=== PATIENT | female | born 1960 | race Caucasian/White ===

== ENCOUNTER 2020-10-01 13:53 | Outpatient (REF) | payer MEDICARE, MEDICAID, SELFPAY ==
[2020-10-01 17:06] LABS: Anion Gap 12 (12-20); Blood Urea Nitrogen 10 mg/dL (9-16); Calcium 8.7 mg/dL (8.4-10.2); Carbon Dioxide 28 mmol/L (22-29); Chloride 101 mmol/L (96-108); Estimated Glomerular Filt Rate > 60; Glucose Random 78 mg/dL (60-115); Potassium 4.4 mmol/l (3.3-5.1); Sodium 137 mmol/L (135-145)
[2020-10-01 17:17] LABS: Microalbumin Urine < 5.0 mg/L
[2020-10-01 17:28] LABS: TSH reflex Free T4 4.31 mIU/mL (0.32-4.0)
[2020-10-01 18:02] LABS: Free T4 (Free Thyroxine) 1.23 ng/dL (0.71-1.85)
[2020-10-02 07:45] LABS: Estimated Average Glucose 151 mg/dL; Hemoglobin A1c % 6.9 %
[2020-10-02 08:06] LABS: LDL Cholesterol Direct 54 mg/dL (<100)
== END 2020-10-01 13:54 | disposition home or self-care (01) ==
LOC: HO.HMGCLDS 13:53
PROVIDERS: PCP Internal Medicine; Visit Provider Internal Medicine
DX: E03.8 Other specified hypothyroidism (principal); E13.9 Other specified diabetes mellitus without complications
CPT/HCPCS: 80048; 82043; 83036; 83721; 84439; 84443

== ENCOUNTER 2021-07-30 11:25 | Outpatient (REF) | payer MEDICARE, MEDICAID, SELFPAY ==
--- NOTE | ~2021-07-30 | XR_ITS ---
EXAMINATION: XR CHEST CLINICAL INFORMATION: Tobacco use. COMPARISON: None TECHNIQUE: 2 views of the chest were obtained. FINDINGS: The lungs are well-expanded and clear. The heart size is enlarged with prominent vascularity is normal. No gross bony abnormality seen. XR/XR chest 2V IMPRESSION: Unremarkable chest exam.
== END 2021-07-30 11:26 | disposition home or self-care (01) ==
LOC: HO.HMGCLDS 11:25
PROVIDERS: PCP Internal Medicine; Visit Provider Internal Medicine
DX: Z13.89 Encounter for screening for other disorder (principal)
CPT/HCPCS: 71046

== ENCOUNTER 2021-08-07 09:04 | Outpatient (REF) | payer MEDICARE, MEDICAID, SELFPAY ==
[2021-08-07 11:35] LABS: MANUAL DIFF FLAG NO
[2021-08-07 11:48] LABS: Basophils Percent Auto 0.7 % (0-2); Eosinophils Absolute Auto 0.1 X10*3/uL (0.0-0.4); Eosinophils Percent Auto 1.8 % (0-4); Hematocrit 37.8 % (37-47); Hemoglobin 11.1 g/dl (12.0-16.0); Imm Gran Abs Auto 0.02 X10*3/uL (0.00-0.03); Imm Gran Pct Auto 0.4 % (0.0-0.4); Mean Corpuscular HGB Conc 29.4 g/dl (31.0-35.0); Mean Platelet Volume 10.1 fL (9.4-12.3); Monocytes Absolute Auto 0.4 X10*3/uL (0.1-1.2); Monocytes Percent Auto 6.2 % (2-11); Neutrophils Absolute Auto 4.2 X10*3/uL (2.0-8.3); Neutrophils Percent Auto 73.9 % (45-73); Platelet Count 287 X10*3/uL (160-400); Red Blood Count 5.04 X10*6/uL (4.20-5.50); Red Cell Distribution Width 18.8 % (11.0-16.0); White Blood Count 5.7 X10*3/uL (4.8-10.8)
[2021-08-07 12:12] LABS: Alanine Aminotransferase 9 U/L (0-31); Albumin Level 4.3 g/dL (3.5-5.0); Alkaline Phosphatase 105 U/L (39-117); Anion Gap 14 (12-20); Aspartate Amino Transferase 10 U/L (5-31); Bilirubin Total 0.6 mg/dL (0.0-1.0); Blood Urea Nitrogen 12 mg/dL (9-16); Calcium 9.6 mg/dL (8.4-10.2); Carbon Dioxide 28 mmol/L (22-29); Chloride 99 mmol/L (96-108); Estimated Glomerular Filt Rate > 60; Glucose Random 141 mg/dL (60-115); Potassium 4.5 mmol/L (3.3-5.1); Sodium 136 mmol/L (135-145); Total Protein 7.2 g/dL (6.5-8.0)
[2021-08-07 12:14] LABS: Estimated Average Glucose 123 mg/dL; Hemoglobin A1c % 5.9 %
[2021-08-07 12:18] LABS: TSH reflex Free T4 5.45 uIU/mL (0.32-4.0)
[2021-08-07 12:20] LABS: Vitamin B12 339 pg/mL (200-900)
[2021-08-07 12:56] LABS: Free T4 (Free Thyroxine) 0.99 ng/dL (0.71-1.85)
[2021-08-09 04:06] LABS: LDL Cholesterol Direct 84 mg/dL (<100)
== END 2021-08-07 09:05 | disposition home or self-care (01) ==
LOC: HO.HMGCLDS 09:04
PROVIDERS: PCP Internal Medicine; Visit Provider Internal Medicine
DX: E03.8 Other specified hypothyroidism (principal); E13.9 Other specified diabetes mellitus without complications; E53.8 Deficiency of other specified B group vitamins; E78.9 Disorder of lipoprotein metabolism, unspecified; J44.9 Chronic obstructive pulmonary disease, unspecified; Z72.0 Tobacco use
CPT/HCPCS: 36415; 80053; 82607; 83036; 83721; 84439; 84443; 85025

== ENCOUNTER → 2021-12-09 14:16 | Outpatient (BNVA) | payer MEDICARE, MEDICAID, SELFPAY | PROVIDERS: PCP Internal Medicine; Visit Provider Internal Medicine | DX: J44.9 Chronic obstructive pulmonary disease, unspecified (principal); E66.9 Obesity, unspecified; F20.9 Schizophrenia, unspecified; Z72.0 Tobacco use; Z68.41 Body mass index [BMI] 40.0-44.9, adult | CPT/HCPCS: 99202 ==

== ENCOUNTER 2021-12-17 14:07 | Outpatient (REF) | payer MEDICARE, MEDICAID, SELFPAY ==
--- NOTE | ~2021-12-17 | MM_ITS ---
EXAMINATION: MM SCREENING DIGITAL BREAST TOMOSYNTHESIS, BILATERAL CLINICAL INFORMATION: Screening. Asymptomatic. The lifetime risk of breast cancer based on the Tyrer-Cuzick Model is 6%. COMPARISON: Mammography: 03/29/2018, 12/30/2016, 07/05/2015 TECHNIQUE: Digital breast tomosynthesis is performed in both the craniocaudal and mediolateral oblique views along with computer-aided detection (CAD). Synthesized 2D images are generated from the tomosynthesis. Additional right MLO view is provided. FINDINGS: There are scattered areas of fibroglandular density (ACR BI-RADS breast composition Category b). There are no significant masses, abnormal calcifications, or other abnormalities. Parenchymal pattern is similar to prior studies. There is no developing density or architectural abnormality. The axilla and skin contours are unremarkable. No significant changes. MM/MM tomosynthesis screening BI IMPRESSION: No mammographic evidence of malignancy. ASSESSMENT: BI-RADS 1: Negative RECOMMENDATION: Routine annual mammography screening. This patient's information was entered into a reminder system with a target due date for their next mammogram.
== END 2021-12-17 14:08 | disposition home or self-care (01) ==
LOC: HO.MAMMO 14:07
PROVIDERS: PCP Internal Medicine; Visit Provider Internal Medicine
DX: Z12.31 Encounter for screening mammogram for malignant neoplasm of breast (principal)
CPT/HCPCS: 77063; 77067

== ENCOUNTER 2022-01-15 07:57 | Outpatient (REF) | payer MEDICARE, MEDICAID, SELFPAY ==
[2022-01-15 09:05] LABS: Hematocrit 38.6 % (37.0-47.0); Hemoglobin 11.1 g/dl (12.0-16.0)
[2022-01-15 09:17] LABS: Estimated Average Glucose 117 mg/dL; Hemoglobin A1c % 5.7 %
[2022-01-15 09:42] LABS: Alanine Aminotransferase 11 U/L (0-31); Albumin Level 4.2 g/dL (3.5-5.0); Alkaline Phosphatase 90 U/L (39-117); Anion Gap 12 (12-20); Aspartate Amino Transferase 12 U/L (5-31); Bilirubin Total 0.7 mg/dL (0.0-1.0); Blood Urea Nitrogen 8 mg/dL (9-16); Calcium 9.5 mg/dL (8.4-10.2); Carbon Dioxide 31 mmol/L (22-29); Chloride 103 mmol/L (96-108); Estimated Glomerular Filt Rate > 60; Glucose Random 135 mg/dL (60-115); Potassium 4.5 mmol/L (3.3-5.1); Sodium 141 mmol/L (135-145); Total Protein 6.9 g/dL (6.5-8.0)
[2022-01-15 09:55] LABS: TSH reflex Free T4 0.57 uIU/mL (0.32-4.0)
[2022-01-15 10:47] LABS: Vitamin B12 532 pg/mL (200-900)
[2022-01-17 01:22] LABS: LDL Cholesterol Direct 59 mg/dL (<100)
[2022-01-20 12:41] LABS: HPV mRNA E6/E7 rflx Not Detected (Not Detected)
== END 2022-01-15 07:58 | disposition home or self-care (01) ==
LOC: HO.LAB 07:57
PROVIDERS: Absent Provider Internal Medicine; PCP Internal Medicine; Visit Provider Obstetrics & Gynecology
DX: Z01.419 Encounter for gynecological examination (general) (routine) without abnormal findings (principal); Z11.51 Encounter for screening for human papillomavirus (HPV); E13.9 Other specified diabetes mellitus without complications; E03.8 Other specified hypothyroidism; J44.9 Chronic obstructive pulmonary disease, unspecified; E78.9 Disorder of lipoprotein metabolism, unspecified; E53.8 Deficiency of other specified B group vitamins; Z72.0 Tobacco use
CPT/HCPCS: 36415; 80053; 82607; 83036; 83721; 84443; 85014; 85018; 87624; 88142

== ENCOUNTER 2022-02-05 10:47 | Inpatient (IN) | payer MEDICARE, MEDICAID, SELFPAY ==
--- NOTE | ~2022-02-05 | XR_ITS ---
EXAMINATION: XR CHEST CLINICAL INFORMATION: Dyspnea COMPARISON: None TECHNIQUE: Frontal view of the chest was obtained. FINDINGS: The lungs are well-expanded and clear acute pneumonic process. There is platelike lingular atelectasis. Rest lungs are clear. Heart size and pulmonary vascularity is normal. No gross bony abnormality seen. XR/XR chest 1V IMPRESSION: Lingular atelectasis. Rest of the lungs are clear.
[2022-02-05 10:59] VITALS: BP 149/78; PULSE 78; RESP 22; TEMP 37.1; O2SAT 89; BMI 39.2
--- NOTE | 2022-02-05 11:01 | ECG_ITS ---
Test Reason : dyspnea Blood Pressure : / mmHG Vent. Rate : 067 BPM Atrial Rate : 067 BPM P-R Int : 136 ms QRS Dur : 076 ms QT Int : 410 ms P-R-T Axes : 046 019 058 degrees QTc Int : 433 ms Normal sinus rhythm Normal ECG When compared with ECG of 02-JAN-2020 15:06, No significant change was found Referred By: Genesis Berger Electronically Signed By:LORNA QUACH MD
--- NOTE | 2022-02-05 11:02 | ED_ITS ---
HPI - SOB/Dyspnea General Chief Complaint: Dyspnea Stated Complaint: LOW O2 SAT 82% BY VNA Time Seen by Provider: 02/05/22 10:52 Source: patient Mode of arrival: EMS Limitations: no limitations History of Present Illness HPI Narrative: patient presents for low O2 sats by VNA found to be in mid 80s given duoneb at h ome, she has no complaints, she is not normally on home O2 MD elicited complaint: shortness of breath (low O2 but she is not short of breath) Pertinent past history: COPD Onset (ago): unknown Context: smoke/fume exposure (smokes daily and I've been smoking strong cigars recently ) Timing: improved Severity: mild Exacerbating factors: exertion Known history of: COPD Associated symptoms: denies other symptoms Treatment prior to arrival: oxygen and bronchodilator Related Data Home Medications Medication Instructions Recorded Confirmed metformin 1,000 mg tablet 1,000 mg PO BID 10/03/20 02/04/22 (Glucophage) risperidone 2 mg tablet (Risperdal) 2 mg PO BID 10/03/20 02/04/22 risperidone microspheres 25 mg/2 25 mg IM DIRECTED ea 10/03/20 02/04/22 mL intramuscular susp,ext release (Risperdal Consta) ipratropium 0.5 mg-albuterol 3 mg 3 ml INHALATION Q4-6H PRN 12/09/21 02/04/22 (2.5 mg base)/3 mL nebulization soln Previous Rx's Medication Instructions Recorded alcohol swabs (Alcohol Wipes) 1 pad TOPICAL DAILY 90 Days #100 ea 02/28/21 lancets (OneTouch UltraSoft #100 ea 03/10/21 Lancets) blood sugar diagnostic (OneTouch #100 ea 05/30/21 Ultra Blue Test Strip) ipratropium 20 mcg-albuterol 100 1 puff INHALATION Q6H PRN #4 g 06/03/21 mcg/actuation mist for inhalation aspirin 325 mg tablet,delayed 325 mg PO DAILY #90 tab 11/27/21 release atorvastatin 40 mg tablet 40 mg PO DAILY #90 tab 11/27/21 albuterol sulfate 90 mcg/actuation 1 puff PO Q4H PRN 30 Days #18 g 12/02/21 aerosol inhaler (Ventolin HFA) cyanocobalamin (vitamin B-12) 1,000 mcg IM .monthly 30 Days #1 ml 02/03/22 1,000 mcg/mL injection solution levothyroxine 125 mcg tablet 125 mcg PO QAM 90 Days #90 tab 02/03/22 syringe with needle, safety 3 mL #50 ea 02/03/22 25 gauge x 1 (BD SafetyGlide Syringe) pioglitazone 15 mg tablet 15 mg PO DAILY 90 Days #90 tab 02/04/22 Allergies Allergy/AdvReac Type Severity Reaction Status Date / Time Penicillins [PENICILLINS] Allergy Intermediate SKIN Verified 02/04/22 14:58 PEELS penicillin V Allergy Unknown peeling Verified 02/04/22 14:58 skin Review of Systems Review of Systems: Constitutional : No Fever, No Chills ENT/Mouth : No sore throat, No Rhinorrhea, No Swallowing Difficulty Eyes: No Eye Pain, No Swelling, No Redness Cardiovascular : No Chest Pain, positive SOB, No Orthopnea, no Edema Respiratory : No Cough, No Sputum, No Wheezing, positive dyspnea Gastrointestinal : No Nausea, No Vomiting, No Diarrhea, No abdominal Pain, No Hematochezia, No Melena Genitourinary : No Dysuria, No Urinary Frequency, No Hematuria Musculoskeletal : No joint pain, No Myalgias Skin : No Skin Lesions, No rash Neuro : No Weakness, No Numbness, No Dizziness, No Headache Psych : No Anxiety/Panic, No Depression Heme/Lymph: No Bruising, No Lymphadenopathy Endocrine : No Polyuria, No Polydipsia All other systems reviewed and are negative PMFSH Past Medical History Attestation statement: The following information was validated with the patient. Medical History B12 deficiency COPD (chronic obstructive pulmonary disease) Diabetes 1.5, managed as type 2 Lipid disorder Obesity Other specified hypothyroidism Tobacco abuse Family History Family History Father Lung cancer Mother Diabetes mellitus Social History Social History Housing: Apartment Patient Tobacco Use Status: Current everyday Tobacco user Tobacco use type: Cigar Cigarette Packs Per Day: 0.5 Advance Directives: No Advance Directives Information Provided: Yes Current occupational status: retired Physical Exam Vital Signs: Vital Signs: Last Vital Signs Temp 98.7 F 02/05/22 10:59 Pulse 59 02/05/22 12:01 Resp 18 02/05/22 12:01 BP 149/78 H 02/05/22 10:59 Pulse Ox 87 L 02/05/22 13:16 BMI result Body Mass Index 39.2 Appearance: Alert. Oriented X3. No acute distress. Eyes: Pupils equal, round and reactive to light. ENT: Pharynx normal. Neck: Normal inspection. Neck supple. CVS: Normal heart rate and rhythm. Pulses normal. Respiratory: No respiratory distress. Breath sounds diminished. 93% on 2L NC Abdomen: Soft and non-tender. Skin: Skin warm and dry. Normal skin color. Normal skin turgor. Extremities: No lower extremity edema. No calf ttp Neuro: Oriented X 3. No motor deficit. No sensory deficit. Course Course Course Narrative: fails off O2 - 88% on RA, cannot get O2 evaluation will admit for COPD/hypoxia MDM - SOB/Dyspnea MDM Narrative Medical decision making narrative: 61 yo female with hx of COPD not on home O2, schizophrenia, hypothyroidism, HLD here with c/o low O2 sats at home - she is not normally on home O2 at this time, has no cough, no fevers, no CP and she herself states she is fine. She does admit to smoking cigars which is new for her. At this time will obtain labs, CXR, give IV steroids, neb treatment. She has no CP/SOB to suggest PE. Dispo per results and O2 needs. O2 sat in pulm office was 93% on RA Nov 2021 Lab Data Result diagrams: 02/05/22 11:17 02/05/22 11:17 Labs: Lab Results 02/05/22 02/05/22 02/05/22 Range/Units 11:17 11:17 11:17 WBC 4.2 L (4.8-10.8) X10*3/uL RBC 5.14 (4.20-5.50) X10*6/uL Hgb 11.2 L (12.0-16.0) g/dl Hct 39.7 (37.0-47.0) % MCV 77.2 L (80.0-98.0) fL MCH 21.8 L (27.0-33.0) pg MCHC 28.2 L (31.0-35.0) g/dl RDW 19.6 H (11.0-16.0) % Plt Count 291 (160-400) X10*3/uL MPV 9.6 (9.4-12.3) fL Immature Gran % (Auto) 0.7 H (0.0-0.4) % Neut % (Auto) 69.2 (45-73) % Lymph % (Auto) 18.4 L (20-40) % [place] % (Auto) 8.0 (2-11) % Eos % (Auto) 2.8 (0-4) % Baso % (Auto) 0.9 (0-2) % Lymph # (Auto) 0.8 L (1.2-4.9) X10*3/uL [place] # (Auto) 0.3 (0.1-1.2) X10*3/uL Eos # (Auto) 0.1 (0.0-0.4) X10*3/uL Baso # (Auto) 0.0 (0.0-0.2) X10*3/uL Abs Immat Gran (auto) 0.03 (0.00-0.03) X10*3/uL Absolute Neuts (auto) 2.9 (2.0-8.3) x10*3/uL Absolute Nucleated RBC 0.000 (0.0-0.012) X10*3/uL Nucleated RBC % (auto) 0.0 (0.0-0.2) /100WBC Sodium 141 (135-145) mmol/L Potassium 4.1 (3.3-5.1) mmol/L Chloride 101 (96-108) mmol/L Carbon Dioxide 30 H (22-29) mmol/L Anion Gap 14 (12-20) BUN 10 (9-16) mg/dL Creatinine 0.73 (0.5-1.4) mg/dL Estim Creat Clear Calc 99.5 Estimated GFR > 60 Random Glucose 122 H (60-115) mg/dL Lactic Acid 1.0 (0.5-2.0) mmol/L Calcium 9.6 (8.4-10.2) mg/dL Magnesium 1.8 (1.6-2.6) mg/dL Total Bilirubin 0.9 (0.0-1.0) mg/dL Direct Bilirubin 0.3 (0.0-0.5) mg/dL AST 12 (5-31) U/L ALT 11 (0-31) U/L Alkaline Phosphatase 86 (39-117) U/L Troponin I High Sens (<3.5-17.0) ng/L B-Natriuretic Peptide (<100) pg/mL Total Protein 7.1 (6.5-8.0) g/dL Albumin 4.3 (3.5-5.0) g/dL COVID-19 (MAGDIEL) (Negative) COVID-19 Clin Com 02/05/22 02/05/22 Range/Units 11:17 11:17 WBC (4.8-10.8) X10*3/uL RBC (4.20-5.50) X10*6/uL Hgb (12.0-16.0) g/dl Hct (37.0-47.0) % MCV (80.0-98.0) fL MCH (27.0-33.0) pg MCHC (31.0-35.0) g/dl RDW (11.0-16.0) % Plt Count (160-400) X10*3/uL MPV (9.4-12.3) fL Immature Gran % (Auto) (0.0-0.4) % Neut % (Auto) (45-73) % Lymph % (Auto) (20-40) % [place] % (Auto) (2-11) % Eos % (Auto) (0-4) % Baso % (Auto) (0-2) % Lymph # (Auto) (1.2-4.9) X10*3/uL [place] # (Auto) (0.1-1.2) X10*3/uL Eos # (Auto) (0.0-0.4) X10*3/uL Baso # (Auto) (0.0-0.2) X10*3/uL Abs Immat Gran (auto) (0.00-0.03) X10*3/uL Absolute Neuts (auto) (2.0-8.3) x10*3/uL Absolute Nucleated RBC (0.0-0.012) X10*3/uL Nucleated RBC % (auto) (0.0-0.2) /100WBC Sodium (135-145) mmol/L Potassium (3.3-5.1) mmol/L Chloride (96-108) mmol/L Carbon Dioxide (22-29) mmol/L Anion Gap (12-20) BUN (9-16) mg/dL Creatinine (0.5-1.4) mg/dL Estim Creat Clear Calc Estimated GFR Random Glucose (60-115) mg/dL Lactic Acid (0.5-2.0) mmol/L Calcium (8.4-10.2) mg/dL Magnesium (1.6-2.6) mg/dL Total Bilirubin (0.0-1.0) mg/dL Direct Bilirubin (0.0-0.5) mg/dL AST (5-31) U/L ALT (0-31) U/L Alkaline Phosphatase (39-117) U/L Troponin I High Sens < 3.5 (<3.5-17.0) ng/L B-Natriuretic Peptide 65 (<100) pg/mL Total Protein (6.5-8.0) g/dL Albumin (3.5-5.0) g/dL COVID-19 (MAGDIEL) Negative (Negative) COVID-19 Clin Com See Note ECG Data Attestation: I personally reviewed and interpreted this ECG as follows: ECG interpretation date: 02/05/22 ECG interpretation time: 11:22 Interpretation: Rate: 67 Rhythm: NSR [place]: normal Normal P waves. Normal LOLI. Normal QRS complex. ST T wave : nonspecific no JUANA, artifact noted qTC: normal prior studies: no acute ischemia The study has been interpreted contemporaneously by me. Discharge Plan Discharge Clinical Impression: COPD (chronic obstructive pulmonary disease), Hypoxia, Tobacco abuse Patient Disposition: Admitted As Inpatient
--- NOTE | 2022-02-05 11:02 | PC.NURSE ---
patient placed on 2L NC at this time and improves to 93%
[2022-02-05 11:23] LABS: MANUAL DIFF FLAG NO
[2022-02-05 11:28] LABS: Basophils Percent Auto 0.9 % (0-2); Eosinophils Absolute Auto 0.1 X10*3/uL (0.0-0.4); Eosinophils Percent Auto 2.8 % (0-4); Hematocrit 39.7 % (37.0-47.0); Hemoglobin 11.2 g/dl (12.0-16.0); Imm Gran Abs Auto 0.03 X10*3/uL (0.00-0.03); Imm Gran Pct Auto 0.7 % (0.0-0.4); Lymphocytes Absolute Auto 0.8 X10*3/uL (1.2-4.9); Lymphocytes Percent Auto 18.4 % (20-40); Mean Corpuscular HGB Conc 28.2 g/dl (31.0-35.0); Mean Corpuscular Hemoglobin 21.8 pg (27.0-33.0); Mean Corpuscular Volume 77.2 fL (80.0-98.0); Mean Platelet Volume 9.6 fL (9.4-12.3); Monocytes Absolute Auto 0.3 X10*3/uL (0.1-1.2); Neutrophils Absolute Auto 2.9 x10*3/uL (2.0-8.3); Neutrophils Percent Auto 69.2 % (45-73); Platelet Count 291 X10*3/uL (160-400); Red Blood Count 5.14 X10*6/uL (4.20-5.50); Red Cell Distribution Width 19.6 % (11.0-16.0); White Blood Count 4.2 X10*3/uL (4.8-10.8)
[2022-02-05 11:43] LABS: Alanine Aminotransferase 11 U/L (0-31); Albumin Level 4.3 g/dL (3.5-5.0); Alkaline Phosphatase 86 U/L (39-117); Anion Gap 14 (12-20); Aspartate Amino Transferase 12 U/L (5-31); Bilirubin Direct 0.3 mg/dL (0.0-0.5); Bilirubin Total 0.9 mg/dL (0.0-1.0); Blood Urea Nitrogen 10 mg/dL (9-16); Calcium 9.6 mg/dL (8.4-10.2); Carbon Dioxide 30 mmol/L (22-29); Chloride 101 mmol/L (96-108); Creatinine Clr Calc Pharmacy 99.5; Estimated Glomerular Filt Rate > 60; Glucose Random 122 mg/dL (60-115); Magnesium 1.8 mg/dL (1.6-2.6); Potassium 4.1 mmol/L (3.3-5.1); Sodium 141 mmol/L (135-145); Total Protein 7.1 g/dL (6.5-8.0)
[2022-02-05 11:47] LABS: B Type Natriuretic Peptide 65 pg/mL (<100); Troponin-I High Sensitivity < 3.5 ng/L (<3.5-17.0)
[2022-02-05] MEDS: methylPREDNISolone Sod Succ 125 MG/2 ML VIAL 60 MG IVPUSH (11:50)
[2022-02-05] MEDS: Albuterol Sulfate (0.083%) 2.5 MG/3 ML VIAL.NEB INHALE (11:58)
[2022-02-05 12:01] VITALS: PULSE 59; RESP 18; O2SAT 92
[2022-02-05 12:06] LABS: COVID-19 Test Negative (Negative); IDNOW Serial# 16C4AD1C
[2022-02-05 13:16] VITALS: O2SAT 87
--- NOTE | 2022-02-05 13:48 | PHA.MEDREC ---
Pharmacy Consult ? Medication Reconciliation Pharmacy has completed the medication reconciliation. Patient reports she does not use Comivent or have a nebulizer. She was able to confirm her last dose of Rispderal Consta was today and the B12 injection was about 3 weeks ago. Reena Forbes, PharmD
[2022-02-05] MEDS: levoFLOXacin/D5W 500 MG/100 ML PIGGYBACK 100 MG IV (14:37)
[2022-02-05] MEDS: Enoxaparin Sodium 40 MG/0.4 ML SYRINGE SUBCUT (15:29)
--- NOTE | 2022-02-05 15:42 | P.HPHOSP_ITS ---
History of Present Illness Date of Service: 02/05/22 Attending physician on admission: Estrella Church Chief Complaint: Shortness of breath 61-year-old female patient of Dr. Georgette Dowling with past medical history significant for COPD, B12 deficiency, type 2 diabetes mellitus, hyperlipidemia, obesity presented to [facility] due to progressively worsening shortness of breath associated with dry cough, patient noted to have low oxygenation in mid 80s by VNA therefore was referred to [facility], patient is being followed by Dr. Buckley from pulmonology and was is scheduled to undergo PFTs but patient was unable to go for her appointment, in the ER patient noted to have finger oximetry 87% on room air, patient feels that her hypoxia is related to smoking 1 pack per day at baseline patient smokes cigars half to 1 pack a day but when she has no cigars she smokes tobacco, she denies associated fever chills she had headache last week that has resolved she complains of occasional diarrhea she denies chest pain, no nausea no vomiting no abdominal symptoms she denies urinary symptoms of urgency or frequency. In ED patient treated with albuterol, IV steroids and Levaquin repeat oxygenation remained low therefore patient is being admitted to [facility] with a diagnosis of acute hypoxic respiratory failure related to mild COPD exacerbation Review of Systems Review of Systems: General no headache no dizziness no fever chills. CVS no chest pain, no palpitation. Respiratory occasional dry cough, shortness of breath with activity Gastrointestinal no nausea no vomiting, no abdominal pain skin no rash Yes all other systems are reviewed and are negative [facility] Medical History B12 deficiency COPD (chronic obstructive pulmonary disease) Diabetes 1.5, managed as type 2 Lipid disorder Obesity Other specified hypothyroidism Tobacco abuse Family History Father Lung cancer Mother Diabetes mellitus Social History Housing: Apartment Patient Tobacco Use Status: Current everyday Tobacco user Tobacco use type: Cigar Cigarette Packs Per Day: 0.5 Advance Directives: No Advance Directives Information Provided: Yes Current occupational status: retired Meds Allergies Allergy/AdvReac Type Severity Reaction Status Date / Time Penicillins [PENICILLINS] Allergy Intermediate SKIN Verified 02/04/22 14:58 PEELS penicillin V Allergy Unknown peeling Verified 02/04/22 14:58 skin Active Medications: Current Medications Acetaminophen (Acetaminophen 325 Mg Tablet) 650 mg PO Q6H PRN PRN Reason: Pain, Mild (Pain Scale 1-3) Albuterol/Ipratropium (Albuterol/Iprat 2.5/0.5mg 3 Ml Ampul.Neb) 3 ml INHALE Q4H PRN PRN Reason: Shortness of Breath Aspirin (Aspirin Enteric Coated 325 Mg Tablet.Dr) 325 mg PO DAILY [facility] Atorvastatin Calcium (Atorvastatin Calcium 40 Mg Tablet) 40 mg PO BEDTIME [facility] Cyanocobalamin (Cyanocobalamin (Vitamin B-12) 1,000 Mcg/Ml Vial) 1,000 mcg IM Q28D [facility] Enoxaparin Sodium (Enoxaparin Sodium 40 Mg/0.4 Ml Syringe) 40 mg SUBCUT Q24H [facility] Last Admin: 02/05/22 15:29 Dose: 40 mg Documented by: Guaifenesin/Dextromethorphan (Guaifenesin Dm 100/10/5 Ml 5 Ml Syrup) 10 ml PO Q6H PRN PRN Reason: cough Levothyroxine Sodium (Levothyroxine Sodium 125 Mcg Tablet) 125 mcg PO DAILY@0600 [facility] Melatonin (Melatonin 3 Mg Tablet) 6 mg PO BEDTIME PRN PRN Reason: Insomnia Methylprednisolone Sodium Succinate (Methylprednisolone Sod Succ 40 Mg/Ml Vial) 40 mg IVPUSH Q12H [facility] Ondansetron HCl (Ondansetron Hcl 4 Mg/2 Ml Vial) 4 mg IVPUSH Q8H PRN PRN Reason: Nausea and Vomiting Pioglitazone HCl (Pioglitazone Hcl 30 Mg Tablet) 30 mg PO DAILY [facility] Risperidone (Risperidone 2 Mg Tablet) 2 mg PO BID [facility] Sodium Chloride (0.9 % Sodium Chloride Flush 3 Ml Syringe) 3 ml IVFLUSH QSHIFT [facility] Home Medications Medication Instructions Recorded Confirmed Last Taken Type metformin 1,000 mg tablet 1,000 mg PO BID 10/03/20 02/05/22 Unknown History (Glucophage) risperidone 2 mg tablet (Risperdal) 2 mg PO BID 10/03/20 02/05/22 Unknown History atorvastatin 40 mg tablet 40 mg PO BEDTIME 02/05/22 02/05/22 Unknown History cyanocobalamin (vitamin B-12) 1,000 mcg IM Q4W 02/05/22 02/05/22 01/15/22 History 1,000 mcg/mL injection solution pioglitazone 30 mg tablet 1 tab PO DAILY 02/05/22 02/05/22 Unknown History risperidone microspheres 25 mg/2 25 mg IM Q2W 02/05/22 02/05/22 02/05/22 History mL intramuscular susp,ext release (Risperdal Consta) Physical Exam Vital Signs and Narrative: Vital Signs: Last Vital Signs Temp 98.7 F 02/05/22 10:59 Pulse 59 02/05/22 12:01 Resp 18 02/05/22 12:01 BP 149/78 H 02/05/22 10:59 Pulse Ox 87 L 02/05/22 13:16 BMI result Body Mass Index 39.2 Const: Other: General awake alert x3, no acute distress. HEENT pupil equal round reactive to light and accommodation Neck supple, no JVD. CVS regular rate rhythm, Respiratory lungs bilateral expiratory rhonchi, no respiratory distress Gastrointestinal abdomen soft, nontender, bowel sounds audible,no guarding , no rigidity. Extremities no edema. Neuro nonfocal musculoskeletal no deformity Skin no rash Results Labs CBC and Chem 7: 02/05/22 11:17 02/05/22 11:17 Labs: Laboratory Results - last 24 hr 02/05/22 02/05/22 02/05/22 11:17 11:17 11:17 MCV 77.2 L MCH 21.8 L MCHC 28.2 L RDW 19.6 H Plt Count 291 MPV 9.6 Immature Gran % (Auto) 0.7 H Neut % (Auto) 69.2 Lymph % (Auto) 18.4 L [place] % (Auto) 8.0 Eos % (Auto) 2.8 Baso % (Auto) 0.9 Lymph # (Auto) 0.8 L [place] # (Auto) 0.3 Eos # (Auto) 0.1 Baso # (Auto) 0.0 Abs Immat Gran (auto) 0.03 Absolute Neuts (auto) 2.9 Absolute Nucleated RBC 0.000 Nucleated RBC % (auto) 0.0 Anion Gap 14 Estim Creat Clear Calc 99.5 Estimated GFR > 60 Random Glucose 122 H Lactic Acid 1.0 Calcium 9.6 Magnesium 1.8 Total Bilirubin 0.9 Direct Bilirubin 0.3 AST 12 ALT 11 Alkaline Phosphatase 86 B-Natriuretic Peptide Total Protein 7.1 Albumin 4.3 COVID-19 ([facility]) COVID-19 Clin Com 02/05/22 02/05/22 11:17 11:17 MCV MCH MCHC RDW Plt Count MPV Immature Gran % (Auto) Neut % (Auto) Lymph % (Auto) [place] % (Auto) Eos % (Auto) Baso % (Auto) Lymph # (Auto) [place] # (Auto) Eos # (Auto) Baso # (Auto) Abs Immat Gran (auto) Absolute Neuts (auto) Absolute Nucleated RBC Nucleated RBC % (auto) Anion Gap Estim Creat Clear Calc Estimated GFR Random Glucose Lactic Acid Calcium Magnesium Total Bilirubin Direct Bilirubin AST ALT Alkaline Phosphatase B-Natriuretic Peptide 65 Total Protein Albumin COVID-19 (MAGDIEL) Negative COVID-19 Clin Com See Note Imaging Radiologist's Impressions: Impressions Chest X-Ray 02/05/22 11:20 IMPRESSION: Lingular atelectasis. Rest of the lungs are clear. Assessment and Plan (1) COPD (chronic obstructive pulmonary disease): Qualifiers: COPD type: unspecified COPD Qualified Code(s): J44.9 - Chronic obstructive pulmonary disease, unspecified Status: Acute (2) Obesity: Status: Acute (3) Hypoxia: Status: Acute (4) Schizophrenia: Status: Acute (5) Tobacco abuse: Status: Acute (6) B12 deficiency: Status: Acute (7) Lipid disorder: Status: Acute (8) Diabetes 1.5, managed as type 2: Status: Acute (9) Other specified hypothyroidism: Status: Acute Plan 61-year-old female patient with past medical history significant for schizoaffective disorder, B12 deficiency, tobacco use disorder hyperlipidemia and diabetes presented to [facility] since noted to have hypoxia and ongoing shortness of breath with activity and dry cough patient is being admitted for mild COPD exacerbation and acute hypoxic respiratory failure. Acute hypoxic respiratory failure due to mild COPD exacerbation will place on scheduled and as needed DuoNeb, and IV steroids, hold antibiotics with no fever and normal chest x-ray recommend incentive spirometry and complete abstinence from smoking wean oxygen as tolerated if unable to wean will obtain home O2 eval supportive care with cough medication, analgesics tobacco use disorder patient declined nicotine patch counseling done at baseline patient's smoke greater than half pack of cigars obesity strongly recommend to follow low-calorie diet since weight contributing to diabetes and placing at risk for obstructive sleep apnea diabetes mellitus type 2 continue home medication by a clear to zone, hold metformin and place on insulin sliding scale and diabetic diet hyperlipidemia continue Lipitor hypothyroidism continue Synthroid, recent TSH 0.57. schizoaffective disorder continue home medications code status full code DVT prophylaxis placed on Lovenox patient will require two night inpatient hospitalization due to hypoxic respi ratory failure not on home oxygen need to wean oxygen and assess for home O2, on IV steroids since did not improved with home DuoNeb treatment. Quality Stroke Does the patient have a stroke diagnosis?: No VTE Prior VTE?: No VTE Risk Level:: Medical - moderate - high VTE Device Contraindication: Treatment Not Indicated VTE Drug Contraindication: N/A - Med Ordered
[2022-02-05 16:14] VITALS: BP 135/68; PULSE 78; RESP 18; TEMP 36.6; O2SAT 93
[2022-02-05 16:15] LABS: Glucose, Whole Blood 139 mg/dL (60-115)
[2022-02-05] MEDS: 0.9 % Sodium Chloride Flush 3 ML SYRINGE IVFLUSH ×2 (18:20→21:04)
[2022-02-05 19:42] VITALS: BP 140/69; PULSE 53; RESP 17; TEMP 36.2; O2SAT 92
[2022-02-05 20:08] LABS: Glucose, Whole Blood 147 mg/dL (60-115)
[2022-02-05] MEDS: Atorvastatin Calcium 40 MG TABLET PO (21:04)
[2022-02-05] MEDS: risperiDONE 2 MG TABLET PO (21:04)
[2022-02-05 23:36] VITALS: BP 125/61; PULSE 56; RESP 16; TEMP 36.8; O2SAT 87
[2022-02-05] MEDS: methylPREDNISolone Sod Succ 40 MG/ML VIAL IVPUSH (23:46)
[2022-02-06] VITALS (9 sets, daily range): BP systolic 126–153; BP diastolic 61–84; PULSE 52–69; RESP 14–20; TEMP 35.7–37.2; O2SAT 86–97
[2022-02-06] MEDS: Levothyroxine Sodium 125 MCG TABLET PO (06:00)
[2022-02-06 07:41] LABS: Glucose, Whole Blood 107 mg/dL (60-115)
[2022-02-06 10:55] LABS: Glucose, Whole Blood 86 mg/dL (60-115)
[2022-02-06] MEDS: Pioglitazone HCL 30 MG TABLET PO (11:25)
[2022-02-06] MEDS: Aspirin Enteric Coated 325 MG TABLET.DR PO (11:25)
[2022-02-06] MEDS: risperiDONE 2 MG TABLET PO ×2 (11:25→20:46)
[2022-02-06] MEDS: methylPREDNISolone Sod Succ 40 MG/ML VIAL IVPUSH ×2 (11:25→17:54)
[2022-02-06] MEDS: 0.9 % Sodium Chloride Flush 3 ML SYRINGE IVFLUSH ×2 (11:25→20:46)
--- NOTE | 2022-02-06 11:49 | P.PNIM_ITS ---
Subjective Subjective Date of Service: 02/06/22 Interval History: being followed for COPD exacerbation and hypoxia patient feeling better with less shortness of breath and cough, continue to require 2 L of oxygen, no acute overnight events denies fever chills, no nausea no vomiting. Review of Systems Review of Systems: Yes all other systems are reviewed and are negative Physical Exam Vital Signs: Vital Signs: Last Vital Signs Temp 98.5 F 02/06/22 11:41 Pulse 61 02/06/22 11:41 Resp 17 02/06/22 11:41 BP 137/65 02/06/22 11:41 Pulse Ox 95 02/06/22 11:41 BMI result Body Mass Index 39.2 Const: Other: General? awake alert x3, no acute distress. Neck supple, no JVD. CVS? regular rate rhythm, Respiratory lungs? bilateral expiratory rhonchi, no respiratory distress Gastrointestinal abdomen soft, nontender, bowel sounds audible,no guarding , no rigidity. Extremities no edema. Neuro nonfocal musculoskeletal no deformity Skin no rash Objective Data Active Medications Acetaminophen (Acetaminophen 325 Mg Tablet) 650 mg PO Q6H PRN PRN Reason: Pain, Mild (Pain Scale 1-3) Albuterol/Ipratropium (Albuterol/Iprat 2.5/0.5mg 3 Ml Ampul.Neb) 3 ml INHALE Q4H PRN PRN Reason: Shortness of Breath Aspirin (Aspirin Enteric Coated 325 Mg Tablet.) 325 mg PO DAILY [facility] Last Admin: 02/06/22 11:25 Dose: 325 mg Documented by: SARAH Atorvastatin Calcium (Atorvastatin Calcium 40 Mg Tablet) 40 mg PO BEDTIME [facility] Last Admin: 02/05/22 21:04 Dose: 40 mg Documented by: BULMARO Cyanocobalamin (Cyanocobalamin (Vitamin B-12) 1,000 Mcg/Ml Vial) 1,000 mcg IM Q28D [facility] Dextrose (Dextrose 50 % 25 Gm/50 Ml Vial) 25 gm IVPUSH Q15M PRN; Protocol PRN Reason: per Hypoglycemia Standing Ord. Enoxaparin Sodium (Enoxaparin Sodium 40 Mg/0.4 Ml Syringe) 40 mg SUBCUT Q24H [facility] [place] Last Admin: 02/05/22 15:29 Dose: 40 mg Documented by: LUKAS-FRIEDA Glucose (Glucose Gel 15 Gm Gel..Gram.) 15 gm PO Q15M PRN; Protocol PRN Reason: per Hypoglycemia Standing Ord. Guaifenesin/Dextromethorphan (Guaifenesin Dm 100/10/5 Ml 5 Ml Syrup) 10 ml PO Q6H PRN PRN Reason: cough Insulin Human Lispro (Insulin Lispro 100 Unit/Ml 3 Ml Vial) 0 unit SUBCUT QIDACHS [facility]; Protocol Last Admin: 02/06/22 09:32 Dose: Not Given Documented by: BABITA Non-Admin Reason: No Insulin Coverage Levothyroxine Sodium (Levothyroxine Sodium 125 Mcg Tablet) 125 mcg PO DAILY@0600 [facility] Last Admin: 02/06/22 06:00 Dose: 125 mcg Documented by: BULMARO Melatonin (Melatonin 3 Mg Tablet) 6 mg PO BEDTIME PRN PRN Reason: Insomnia Methylprednisolone Sodium Succinate (Methylprednisolone Sod Succ 40 Mg/Ml Vial) 40 mg IVPUSH Q12H [facility] [place] Last Admin: 02/06/22 11:25 Dose: 40 mg Documented by: SARAH Ondansetron HCl (Ondansetron Hcl 4 Mg/2 Ml Vial) 4 mg IVPUSH Q8H PRN PRN Reason: Nausea and Vomiting Pioglitazone HCl (Pioglitazone Hcl 30 Mg Tablet) 30 mg PO DAILY [facility] [place] Last Admin: 02/06/22 11:25 Dose: 30 mg Documented by: SARAH Risperidone (Risperidone 2 Mg Tablet) 2 mg PO BID [facility] [place] Last Admin: 02/06/22 11:25 Dose: 2 mg Documented by: SARAH Sodium Chloride (0.9 % Sodium Chloride Flush 3 Ml Syringe) 3 ml IVFLUSH QSHIFT [facility] [place] Last Admin: 02/06/22 11:25 Dose: 3 ml Documented by: SARAH Labs CBC & Chem 7: 02/05/22 11:17 02/05/22 11:17 Labs: Laboratory Results - last 24 hr 02/05/22 02/05/22 02/05/22 11:17 16:12 19:44 POC Glucose 139 H 147 H COVID-19 ([facility]) Negative COVID-19 Clin Com See Note 02/06/22 02/06/22 07:37 10:52 POC Glucose 107 86 COVID-19 ([facility]) COVID-19 Clin Com Assessment and Plan (1) COPD (chronic obstructive pulmonary disease): Status: Acute (2) Hypoxia: Status: Acute (3) B12 deficiency: Status: Acute (4) Lipid disorder: Status: Acute (5) Obesity: Status: Acute (6) Schizophrenia: Status: Acute (7) Tobacco abuse: Status: Acute Plan 61-year-old female patient with past medical history significant for schizoaffective disorder, B12 deficiency, tobacco use disorder hyperlipidemia and diabetes presented to [facility] since noted to have hypoxia and ongoing shortness of breath with activity and dry cough patient is being admitted for mild COPD exacerbation and acute hypoxic respiratory failure. ? Acute hypoxic respiratory failure due to mild COPD exacerbation ? Persistent shortness of breath continue scheduled and as needed DuoNeb, and up titrate IV steroids, hold antibiotics with no fever and normal chest x-ray will add Breo and add Spiriva, only takes albuterol as needed at home, encourage incentive spirometry and complete abstinence from smoking ? wean oxygen as tolerated if unable to wean will obtain home O2 eval continue supportive care with cough medication, recommend out of bed to chair ? tobacco use disorder patient declined nicotine patch, counseling done at baseline patient's smoke greater than half pack of cigars ?obesity strongly recommend to follow low-calorie diet since weight contributing to diabetes and placing at risk for obstructive sleep apnea ?diabetes mellitus type 2 continue home medication pioglitazone, blood sugars stable,hold metformin and cont. on insulin sliding scale and diabetic diet ?hyperlipidemia continue Lipitor ?hypothyroidism continue Synthroid, recent? TSH 0.57. ? schizoaffective disorder continue home medications ? code status full code ? DVT prophylaxis placed on Lovenox ? patient will require continued inpatient hospitalization due to persistent hypoxia and COPD exacerbation requiring IV steroids and oxygen Quality Stroke Does the patient have a stroke diagnosis?: No VTE Prior VTE?: No VTE Risk Level:: Medical - moderate - high VTE Device Contraindication: Treatment Not Indicated VTE Drug Contraindication: N/A - Med Ordered
--- NOTE | 2022-02-06 13:54 | MHC.CM.PN ---
CM MET WITH PT WHO REPORTS SHE DOES NOT LIVE IN A [facility], SHE LIVES IN A PRIVATE APARTMENT WITH [facility]PPORT SERVICES. SHE REPORTS THE [facility] NURSE COMES TO HER HOME EVERY MORNING TO ADMINISTER HER MEDICATIONS PT DENIES HAVING ANY OTHER SERVICES OR ANY DME PT CONFIRMS HIS PCP IS URIEL OVALLE AND SHE DECLINES TO COMPLETE A HCP PT REPORTS SHE IS VACCINATED AGAINST COVID-19 AND HAS HAD THE BOOSTER. IMM DELIVERED CURRENT DC PLAN IS HOME WITH RESUMPTION OF [facility] SERVICES PT WILL NEED TRANSPORTATION HOME
[2022-02-06] MEDS: Enoxaparin Sodium 40 MG/0.4 ML SYRINGE SUBCUT (14:54)
[2022-02-06] MEDS: Albuterol/Iprat 2.5/0.5MG 3 ML AMPUL.NEB INHALE ×2 (15:05→19:39)
--- NOTE | 2022-02-06 16:15 | PC.NURSE ---
Call to patient Nurse Laila at [facility], updated on patient condition. Laila reports patient was without her inhalers or respiratory medications because ther PCP and digital media planner had not decided who would be responsible to order refills for patient. Informed her no dx of pneumonia given.
[2022-02-06 16:32] LABS: Glucose, Whole Blood 174 mg/dL (60-115)
[2022-02-06] MEDS: Insulin Lispro 100 UNIT/ML 3 ML VIAL SUBCUT (17:03)
[2022-02-06] MEDS: Atorvastatin Calcium 40 MG TABLET PO (20:46)
[2022-02-06 21:02] LABS: Glucose, Whole Blood 134 mg/dL (60-115)
[2022-02-07] MEDS: methylPREDNISolone Sod Succ 40 MG/ML VIAL IVPUSH ×2 (03:36→11:38)
[2022-02-07 04:00] VITALS: BP 144/68; PULSE 53; RESP 20; TEMP 36.5; O2SAT 92
[2022-02-07] MEDS: Levothyroxine Sodium 125 MCG TABLET PO (06:16)
[2022-02-07 06:52] VITALS: BP 127/59; PULSE 61; RESP 20; TEMP 36.6; O2SAT 90
[2022-02-07 07:08] LABS: Glucose, Whole Blood 138 mg/dL (60-115)
[2022-02-07] MEDS: Aspirin Enteric Coated 325 MG TABLET.DR PO (07:32)
[2022-02-07] MEDS: risperiDONE 2 MG TABLET PO (07:32)
[2022-02-07] MEDS: Pioglitazone HCL 30 MG TABLET PO (07:32)
[2022-02-07] MEDS: 0.9 % Sodium Chloride Flush 3 ML SYRINGE IVFLUSH (07:32)
[2022-02-07 07:42] VITALS: PULSE 61; RESP 20; O2SAT 94
[2022-02-07] MEDS: Fluticasone/Vilanterol 100/25 BLST.W.DEV 1 PUFF INHALE (07:42)
[2022-02-07] MEDS: Albuterol/Iprat 2.5/0.5MG 3 ML AMPUL.NEB INHALE (07:42)
[2022-02-07 10:11] VITALS: PULSE 70; PULSE 76; PULSE 78; PULSE 93; PULSE 99; O2SAT 72; O2SAT 86; O2SAT 87; O2SAT 89; O2SAT 92
--- NOTE | 2022-02-07 10:47 | P.DS_ITS ---
DS: Providers Provider Date of Service: 02/07/22 Date of admission: 02/05/22 13:55 Primary care physician: Tung Dowling MD DS: Diagnosis Discharge Diagnosis (1) COPD (chronic obstructive pulmonary disease): Status: Acute (2) Hypoxia: Status: Acute (3) B12 deficiency: Status: Acute (4) Lipid disorder: Status: Acute (5) Obesity: Status: Acute (6) Schizophrenia: Status: Acute (7) Tobacco abuse: Status: Acute DS: Summary Hospital Course Hospital Course: HPI Chief Complaint: ? Shortness of breath 61-year-old female patient of Dr. Georgette Dowling with past medical history significant for COPD, B12 deficiency, type 2 diabetes mellitus, hyperlipidemia, obesity presented to [facility] due to progressively worsening shortness of breath associated with dry cough, patient noted to have low oxygenation in s by VNA therefore was referred to [facility], patient is being followed by Dr. Buckley from pulmonology and was is scheduled to undergo PFTs but patient was unable to go for her appointment, in the ER patient noted to have finger oximetry 87% on room air, patient feels that her hypoxia is related to smoking 1 pack per day at baseline patient smokes cigars half to 1 pack a day but when she has no cigars she smokes tobacco, she denies associated fever chills she had headache last week that has resolved she complains of occasional diarrhea she denies chest pain, no nausea no vomiting no abdominal symptoms she denies urinary symptoms of urgency or frequency.? In ED patient treated with albuterol, IV steroids and Levaquin repeat oxygenation remained low therefore patient is being admitted to [facility] with a diagnosis of acute hypoxic respiratory failure related to mild COPD exacerbation hospital course 61-year-old female patient with past medical history significant for schizoaffective disorder, B12 deficiency, tobacco use disorder hyperlipidemia and diabetes presented to [facility] since noted to have hypoxia and ongoing shortness of breath with activity and dry cough and admitted for COPD exacerbation and acute hypoxic respiratory failure ,treated with scheduled and as needed DuoNeb, and IV steroids, did not required antibiotic treatment with normal chest x-ray, patient shortness of breath and cough improved, she has been started on Breo and Spiriva cord prior to discharge home O2 eval was obtained patient qualifies for 2 L of oxygen at rest and 3 L with activity since oxygenation drop down stew 86% on 2 L with activity, patient has been strongly advised to abstain from smoking, she has been recommended to follow-up with pulmonology for outpatient PFTs. ? ? tobacco use disorder patient declined nicotine patch, counseling done at baseline patient's smoke greater than half pack of cigars. ?obesity strongly recommend to follow low-calorie diet since weight contributing to diabetes and placing at risk for obstructive sleep apnea. ?diabetes mellitus type 2 continue home medication pioglitazone,? and metformin. ?hyperlipidemia continue Lipitor ?hypothyroidism continue Synthroid, recent? TSH 0.57. ? schizoaffective disorder continue home medications, no acute decompensation noted while in hospital. Time Spent with Patient Time attestation: Total time spent providing and/or coordinating discharge services: Discharge coordination time: Greater than 30 minutes Quality: Stroke Does the patient have a stroke diagnosis?: No Physical Exam Vital Signs: Vital Signs: Last Vital Signs Temp 98 F 02/07/22 06:52 Pulse 61 02/07/22 07:42 Resp 20 02/07/22 07:42 BP 127/59 L 02/07/22 06:52 Pulse Ox 90 L 02/07/22 06:52 BMI result Body Mass Index 39.2 Const: Other: General? awake alert x3, no acute distress. Neck supple, no JVD. CVS? regular rate rhythm, Respiratory lungs? no rhonchi, no respiratory distress Gastrointestinal abdomen soft, nontender, bowel sounds audible,no guarding , no rigidity. Extremities no edema. Neuro nonfocal musculoskeletal no deformity Skin no rash DS: Data Data Completed and Pending Labs on day of discharge: Laboratory Results - last 24 hr 02/06/22 02/06/22 02/06/22 10:52 16:25 20:45 POC Glucose 86 174 H 134 H 02/07/22 06:52 POC Glucose 138 H Preliminary micro results at discharge 02/05/22 11:17 Blood Culture - Preliminary Blood - Venous No growth after 24 hours. 02/05/22 11:17 Blood Culture - Preliminary Blood - Venous No growth after 24 hours. Discharge Plan Discharge Patient Disposition: Home Health Service Discharge Diagnosis: acute hypoxic respiratory failure COPD exacerbation Referrals: Tung Dowling MD [Primary Care Provider] - 1 Week Discharge Medications: New Breo Ellipta 100-25 mcg/dose Blister With Device 1 ea inhalation RDAILY Qty: 60 0RF Spiriva with HandiHaler 18 mcg Capsule, W/Inhalation Device 18 mcg inhalation RDAILY Qty: 30 0RF Continued metformin [Glucophage] 1,000 mg tablet 1,000 mg PO BID 0RF risperidone [Risperdal] 2 mg tablet 2 mg PO BID 0RF (DME) lancets [OneTouch UltraSoft Lancets] Misc See Rx Instructions .ROUTE .MEDSUPPLY Qty: 100 0RF Rx Instructions: Daily and as needed for hypo/hyperglycemia (DME) OneTouch Ultra Blue Test Strip Strip See Rx Instructions .ROUTE .MEDSUPPLY Qty: 100 0RF Rx Instructions: qd prn aspirin 325 mg tablet,delayed release (DR/EC) 325 mg PO DAILY Qty: 90 3RF albuterol sulfate [Ventolin HFA] 90 mcg/actuation HFA aerosol inhaler 1 puff PO Q4H PRN (Reason: bronchospasm) 30 Days Qty: 18 5RF levothyroxine 125 mcg tablet 125 mcg PO QAM 90 Days Qty: 90 0RF (DME) BD SafetyGlide Syringe 3 mL 25 gauge x 1 syringe See Rx Instructions .ROUTE .MEDSUPPLY Qty: 50 0RF Rx Instructions: As directed pioglitazone 30 mg tablet 1 tab PO DAILY 0RF Risperdal Consta 25 mg/2 mL suspension,extended rel recon 25 mg IM Q2W 0RF atorvastatin 40 mg tablet 40 mg PO BEDTIME 0RF cyanocobalamin (vitamin B-12) 1,000 mcg/mL solution 1,000 mcg IM Q4W 0RF Discharge Orders: Discharge Order (Routine); Ordered 02/07/22 Ordered By: Estrella Church Diet: diabetic diet Stand Alone Forms: Patient Portal Discharge page Care Plan Goals: hypoxic respiratory failure, patient qualifies for 2 L of oxygen at rest and 3 L with ambulation, has been started on Spiriva 1 puff daily and Breo 1 inhaler daily Health Concerns: diabetes mellitus/hyperlipidemia/ Tobacco use disorder/obesity strongly recommend to abstain from smoking Plan of Treatment: close outpatient follow-up with primary care physician and food and nutrition services supervisor Dr. Buckley will need outpatient pulmonary function test Assessment: as above
[2022-02-07 11:04] VITALS: BP 115/62; PULSE 67; RESP 20; TEMP 36.1; O2SAT 92
[2022-02-07 11:22] LABS: Glucose, Whole Blood 213 mg/dL (60-115)
[2022-02-07] MEDS: Insulin Lispro 100 UNIT/ML 3 ML VIAL SUBCUT (12:09)
--- NOTE | 2022-02-07 14:10 | MHC.CM.PN ---
CM RECEIVED A CALL FROM [facility] NURSE, BRY SOTO ([phone]) WHO REPORTS THE TEAM HAS CONCERNS ABOUT THE PT GOING HOME ON OXYGEN SHE REPORTS THE PT CHAIN SMOKES AND WILL NOT REMEMBER TO TAKE THE OXYGEN OFF SHE REPORTS THE PT HAS DAILY NURSING VISITS PROVIDED BY [facility] CM CALLED [facility] AND SPOKE TO CHASTITY, SHE REPORTED A NURSE COULD SEE THE PT TODAY AT 1700 HOURS TO PROVIDE EDUCATION AROUND OXYGEN USE AND SAFETY. CM CALLED BRY BACK TO PROVIDE UPDATE CM SPOKE TO PT WHO ASKED ABOUT SMOKING WITH OXYGEN, CM REITERATED THE DANGERS AND INFORMED HER THE NURSE WOULD PROVIDE FURTHER EDUCATION. PT REPORTS SHE DOES NOT SMOKE IN HER HOME. SHE ALSO ASKED ABOUT HAVING TO TAKE THE O2 TO THE STORE AND WEAR IT AT ALL TIMES. CM REMINDED HER SHE IS SUPPOSED TO HAVE IT ON HOWEVER HER VISITING NURSE WOULD PROVIDE FURTHER INFORMATION PT WILL DC HOME TODAY WITH RESUMPTION OF HER [facility] AND [facility] [facility] PT WILL TRANSPORT VIA BLS DUE TO O2 NEEDS
== END 2022-02-07 15:00 | disposition home health service (06) | DRG 190 ==
LOC: HO.ED 13:18 → HO.EDOVER 14:06 → HO.S3 18:06
PROVIDERS: Admitting Provider Hospitalist; Emergency Provider Emergency Medicine; PCP Internal Medicine; Visit Provider Hospitalist
DX: J44.1 Chronic obstructive pulmonary disease with (acute) exacerbation (principal); J96.01 Acute respiratory failure with hypoxia; E66.9 Obesity, unspecified; Z68.39 Body mass index [BMI] 39.0-39.9, adult; F17.210 Nicotine dependence, cigarettes, uncomplicated; Z71.6 Tobacco abuse counseling; E53.8 Deficiency of other specified B group vitamins; E78.5 Hyperlipidemia, unspecified; F25.9 Schizoaffective disorder, unspecified; Z20.822 Contact with and (suspected) exposure to COVID-19; Z88.0 Allergy status to penicillin; Z79.51 Long term (current) use of inhaled steroids; Z79.82 Long term (current) use of aspirin; Z79.84 Long term (current) use of oral hypoglycemic drugs; Z79.890 Hormone replacement therapy; Z79.899 Other long term (current) drug therapy
CPT/HCPCS: 71045; 80048; 80076; 82947; 83605; 83735; 83880; 84484; 85025; 87040; 87635; 93005; 94640; 96365; 96375; 99285; J1650; J1956; J2920; J2930

== ENCOUNTER 2022-02-26 12:53 | Outpatient (REF) | payer MEDICARE, MEDICAID, SELFPAY ==
--- NOTE | 2022-02-26 15:57 | PFT_ITS ---
FLOWS: FEV1 65% of predicted at 1.67 L. FVC 74% of predicted at 2.46 L. FEV1 to FVC ratio of 0.68. Positive bronchodilator response. LUNG VOLUMES: Total lung capacity 96% of predicted at 4.90 L. Residual volume 129% of predicted at 2.57 L. Slow vital capacity 75% of predicted at 2.32 L. Expiratory reserve volume 37% of predicted at 0.33 L. Diffusion capacity is mildly decreased, diffusion capacity corrects to normal after adjustment for alveolar ventilation. In comparison to pulmonary function test from November of 2013, FEV1 has decreased by 0.35 L; FVC has decreased by 0.40 L; total lung capacity has decreased by 0.96 L; residual volume has decreased by 0.27 L; slow vital capacity has decreased by 0.69 L; expiratory reserve volume has been without significant changes; diffusion capacity has decreased by 4.96 mL/minute per mmHg. IMPRESSION: Moderate obstructive ventilatory defect with positive bronchodilator response. Decreased expiratory reserve volume suggests extrathoracic restriction, likely secondary to abdominal obesity. Mohit Mccullough MD AP/MODL / [id number]
== END 2022-02-26 12:54 | disposition home or self-care (01) ==
LOC: HO.RESP 12:53
PROVIDERS: PCP Internal Medicine; Visit Provider Internal Medicine
DX: J44.9 Chronic obstructive pulmonary disease, unspecified (principal); Z72.0 Tobacco use
CPT/HCPCS: 94060; 94727; 94729

== ENCOUNTER → 2022-03-04 11:36 | Outpatient (BNVA) | payer MEDICARE, MEDICAID, SELFPAY | PROVIDERS: PCP Internal Medicine; Visit Provider Internal Medicine | DX: J44.9 Chronic obstructive pulmonary disease, unspecified (principal); F17.210 Nicotine dependence, cigarettes, uncomplicated; Z79.899 Other long term (current) drug therapy; Z71.6 Tobacco abuse counseling | CPT/HCPCS: 99212 ==

== ENCOUNTER → 2022-06-01 14:28 | Outpatient (BNVA) | payer MEDICARE, MEDICAID, SELFPAY | PROVIDERS: PCP Internal Medicine; Visit Provider Internal Medicine | DX: J44.9 Chronic obstructive pulmonary disease, unspecified (principal); F17.210 Nicotine dependence, cigarettes, uncomplicated | CPT/HCPCS: 99212 ==

== ENCOUNTER 2022-07-24 14:18 | Outpatient (REF) | payer MEDICARE, MEDICAID, SELFPAY ==
--- NOTE | ~2022-07-24 | CT_ITS ---
EXAMINATION: CT CHEST SCREENING CLINICAL INFORMATION: Current smoker. 30 pack year history. COMPARISON: Previous chest x-ray most recent January 2022 TECHNIQUE: Multidetector volumetric CT imaging of the chest is performed without contrast using low dose technique. Additional 2D coronal and sagittal reformatted images and axial 3D maximum intensity projection (MIP) images are generated on the CT workstation. This CT examination was performed using dose optimization techniques as appropriate, variously including the following: *Automated exposure control *Adjustment of mA and/or kV according to patient size (this includes techniques or standardized protocols for targeted exams where dose is matched to indication/reason for exam; i.e. extremities or head) *Use of iterative reconstruction technique DLP: 74 mGy-cm FINDINGS: LUNGS: There is question of a 8 x 12 mm right lower lobe pulmonary nodule versus prominent vessel axial image 325 series 5. There is minimal scarring or subsegmental atelectasis in the left lower lobe. The lungs are otherwise clear. No endobronchial or tracheal lesion. MEDIASTINUM: There is very mild coronary artery calcification. There is a trace pericardial effusion. The mediastinum is otherwise normal. PLEURA: There is no pleural effusion. No pleural mass or thickening. AXILLA: No lymphadenopathy. UPPER ABDOMEN: There are gallstones in the gallbladder. OSSEOUS STRUCTURES: There are degenerative changes of the spine. CT/CT lung screening IMPRESSION: Question 8 x 12 mm right lower lobe nodule versus prominent vessel. Gallstones. ASSESSMENT: Lung-RADS category 4A: Suspicious. RECOMMENDATION: 3-6 month follow-up chest CT with IV contrast recommended to better assess questioned right lower lobe pulmonary nodule.
== END 2022-07-24 14:19 | disposition home or self-care (01) ==
LOC: HO.CT 14:18
PROVIDERS: Visit Provider Physician Assistant Medical
DX: Z12.2 Encounter for screening for malignant neoplasm of respiratory organs (principal); F17.210 Nicotine dependence, cigarettes, uncomplicated
CPT/HCPCS: 71271; G0296

== ENCOUNTER 2022-08-12 10:32 | Outpatient (REF) | payer MEDICARE, MEDICAID, SELFPAY ==
[2022-08-12 13:57] LABS: MANUAL DIFF FLAG NO
[2022-08-12 14:04] LABS: Basophils Absolute Auto 0.1 X10*3/uL (0.0-0.2); Basophils Percent Auto 1.2 % (0-2); Eosinophils Absolute Auto 0.2 X10*3/uL (0.0-0.4); Eosinophils Percent Auto 3.1 % (0-4); Hematocrit 40.5 % (37.0-47.0); Hemoglobin 11.8 g/dl (12.0-16.0); Imm Gran Abs Auto 0.02 X10*3/uL (0.00-0.03); Imm Gran Pct Auto 0.4 % (0.0-0.4); Lymphocytes Percent Auto 19.8 % (20-40); Mean Corpuscular HGB Conc 29.1 g/dl (31.0-35.0); Mean Corpuscular Hemoglobin 21.8 pg (27.0-33.0); Mean Corpuscular Volume 74.7 fL (80.0-98.0); Mean Platelet Volume 9.8 fL (9.4-12.3); Monocytes Absolute Auto 0.4 X10*3/uL (0.1-1.2); Monocytes Percent Auto 7.2 % (2-11); Neutrophils Absolute Auto 3.5 x10*3/uL (2.0-8.3); Neutrophils Percent Auto 68.3 % (45-73); Platelet Count 301 X10*3/uL (160-400); Red Blood Count 5.42 X10*6/uL (4.20-5.50); Red Cell Distribution Width 19.5 % (11.0-16.0); White Blood Count 5.1 X10*3/uL (4.8-10.8)
[2022-08-12 14:18] LABS: Estimated Average Glucose 114 mg/dL; Hemoglobin A1c % 5.6 %
[2022-08-12 14:38] LABS: Alanine Aminotransferase 12 U/L (0-31); Albumin Level 4.7 g/dL (3.5-5.0); Alkaline Phosphatase 87 U/L (39-117); Anion Gap 17 (12-20); Aspartate Amino Transferase 11 U/L (5-31); Bilirubin Total 0.9 mg/dL (0.0-1.0); Blood Urea Nitrogen 12 mg/dL (9-16); Calcium 9.7 mg/dL (8.4-10.2); Carbon Dioxide 27 mmol/L (22-29); Chloride 102 mmol/L (96-108); Estimated Glomerular Filt Rate > 60; Glucose Random 123 mg/dL (60-115); Potassium 4.9 mmol/L (3.3-5.1); Sodium 141 mmol/L (135-145); Total Protein 7.6 g/dL (6.5-8.0)
[2022-08-12 15:01] LABS: TSH reflex Free T4 0.71 uIU/mL (0.32-4.0)
[2022-08-12 15:34] LABS: Vitamin B12 519 pg/mL (200-900)
[2022-08-14 10:16] LABS: LDL Cholesterol Direct 65 mg/dL (<100)
== END 2022-08-12 10:33 | disposition home or self-care (01) ==
LOC: HO.HMGCLDS 10:32
PROVIDERS: PCP Internal Medicine; Visit Provider Internal Medicine
DX: E53.8 Deficiency of other specified B group vitamins (principal); E13.9 Other specified diabetes mellitus without complications; J41.0 Simple chronic bronchitis; E03.8 Other specified hypothyroidism; E78.9 Disorder of lipoprotein metabolism, unspecified; E66.9 Obesity, unspecified; F20.9 Schizophrenia, unspecified
CPT/HCPCS: 36415; 80053; 82607; 83036; 83721; 84443; 85025

== ENCOUNTER → 2022-09-30 11:22 | Outpatient (BNVA) | payer MEDICARE, MEDICAID, SELFPAY | PROVIDERS: PCP Internal Medicine; Visit Provider Internal Medicine | DX: J44.9 Chronic obstructive pulmonary disease, unspecified (principal); J41.0 Simple chronic bronchitis; R91.1 Solitary pulmonary nodule; E66.9 Obesity, unspecified; F20.9 Schizophrenia, unspecified; Z87.891 Personal history of nicotine dependence; Z68.38 Body mass index [BMI] 38.0-38.9, adult | CPT/HCPCS: 99212 ==

== ENCOUNTER → 2023-01-20 08:15 | Outpatient (BNVA) | payer MEDICARE, MEDICAID, SELFPAY | PROVIDERS: PCP Internal Medicine; Visit Provider Obstetrics & Gynecology ==

== ENCOUNTER → 2023-03-11 09:35 | Outpatient (BNVA) | payer MEDICARE, MEDICAID, SELFPAY | PROVIDERS: PCP Internal Medicine; Visit Provider Internal Medicine | DX: J44.9 Chronic obstructive pulmonary disease, unspecified (principal); J41.0 Simple chronic bronchitis; R91.1 Solitary pulmonary nodule; F17.210 Nicotine dependence, cigarettes, uncomplicated | CPT/HCPCS: 99212 ==

== ENCOUNTER 2023-03-22 16:42 | Outpatient (REF) | payer MEDICARE, MEDICAID, SELFPAY ==
[2023-03-22 18:29] LABS: Blood Urea Nitrogen 10 mg/dL (9-16); Estimated Glomerular Filt Rate > 60
== END 2023-03-22 16:43 | disposition home or self-care (01) ==
LOC: HO.LAB 16:42
PROVIDERS: PCP Internal Medicine; Visit Provider Internal Medicine
DX: R91.1 Solitary pulmonary nodule (principal)
CPT/HCPCS: 36415; 82565; 84520

== ENCOUNTER 2023-03-25 08:03 | Outpatient (REF) | payer MEDICARE, MEDICAID, SELFPAY ==
--- NOTE | ~2023-03-25 | CT_ITS ---
EXAMINATION: CT CHEST WITH CONTRAST CLINICAL INFORMATION: Smoker. Pulmonary nodule. COMPARISON: CT screening 07/24/2022. 3 month follow-up. TECHNIQUE: Multidetector volumetric CT imaging of the chest was obtained after the administration of 50 mL of Omnipaque 350 intravenous contrast without immediate adverse reactions. Axial MIP volume rendering provided. Sagittal and coronal reformatted images were obtained. This CT examination was performed using dose optimization techniques as appropriate, variously including the following: *Automated exposure control *Adjustment of mA and/or kV according to patient size (this includes techniques or standardized protocols for targeted exams where dose is matched to indication/reason for exam; i.e. extremities or head) *Use of iterative reconstruction technique DLP: 74 mGy-cm FINDINGS: SCENARIO WRITER: Well-inflated lungs. LUNGS: The lungs are well expanded with patchy consolidation/atelectasis right lower lobe adjacent to the major fissure, new. Previously visualized 8 x 12 mm question nodule right lower lobe pulmonary nodule versus prominent vessels again visualized on axial slice 320/5 and is most likely a branching dilated vessel, less likely nodule. No new pulmonary nodules seen. There is no ground-glass density or atelectasis. MEDIASTINUM: The thyroid lobes are symmetric and normal. The central trachea and the bronchi are widely patent. Heart size and the great vessels are normal caliber. No abnormal-sized mediastinal lymph nodes seen. There is no pericardial effusion. Trace coronary artery calcifications visualized. PLEURA: There is no pleural effusion. No pleural mass or thickening. AXILLA: Small shotty bilateral axillary lymph nodes visualized. UPPER ABDOMEN: Visualized liver, spleen, pancreas and bilateral adrenal glands unremarkable. There is no radiopaque gallstone or wall thickening. OSSEOUS STRUCTURES: There is no lytic or sclerotic process. The paravertebral soft tissues are normal. CT/CT chest w IV con IMPRESSION: Nodule seen in the right lower lobe previously is most likely a prominent branching vessel. No other nodule seen. Gallstones. Consider low-dose annual CT chest. Fleischner guidelines were followed.
[2023-03-25] MEDS: iohexoL 350 MG/ML 100 ML INFUS..BTL IV (08:55)
== END 2023-03-25 08:04 | disposition home or self-care (01) ==
LOC: HO.CT 08:03
PROVIDERS: PCP Internal Medicine; Visit Provider Physician Assistant Medical
DX: R91.1 Solitary pulmonary nodule (principal); F17.210 Nicotine dependence, cigarettes, uncomplicated
CPT/HCPCS: 71260; Q9967

== ENCOUNTER → 2023-04-09 10:09 | Outpatient (BNVA) | payer MEDICARE, MEDICAID, SELFPAY | PROVIDERS: PCP Internal Medicine; Visit Provider Surgery | DX: R91.1 Solitary pulmonary nodule (principal); F17.210 Nicotine dependence, cigarettes, uncomplicated | CPT/HCPCS: 99202 ==

== ENCOUNTER 2023-04-20 11:19 | Outpatient (REF) | payer MEDICARE, MEDICAID, SELFPAY ==
--- NOTE | ~2023-04-20 | MM_ITS ---
EXAMINATION: MM SCREENING DIGITAL BREAST TOMOSYNTHESIS, BILATERAL CLINICAL INFORMATION: Screening. Asymptomatic. The lifetime risk of breast cancer based on the Tyrer-Cuzick Model is 17%. COMPARISON: Mammography: 12/17/2021, 03/29/2018, 12/30/2016 TECHNIQUE: Digital breast tomosynthesis is performed in both the craniocaudal and mediolateral oblique views along with computer-aided detection (CAD). Synthesized 2D images are generated from the tomosynthesis. Additional bilateral CC views are provided. FINDINGS: There are scattered areas of fibroglandular density (ACR BI-RADS breast composition Category b). There are no significant masses, abnormal calcifications, or other abnormalities. Parenchymal pattern is similar to prior studies. There is no developing density or architectural abnormality. The axilla and skin contours are unremarkable. No significant changes. MM/MM tomosynthesis screening BI IMPRESSION: No mammographic evidence of malignancy. ASSESSMENT: BI-RADS 1: Negative RECOMMENDATION: Routine annual mammography screening. This patient's information was entered into a reminder system with a target due date for their next mammogram.
== END 2023-04-20 11:20 | disposition home or self-care (01) ==
LOC: HO.MAMMO 11:19
PROVIDERS: PCP Obstetrics & Gynecology; Visit Provider Internal Medicine
DX: Z12.31 Encounter for screening mammogram for malignant neoplasm of breast (principal)
CPT/HCPCS: 77063; 77067

== ENCOUNTER → 2023-05-13 13:27 | Outpatient (BNVA) | payer MEDICARE, MEDICAID, SELFPAY | PROVIDERS: PCP Internal Medicine; Visit Provider Physician Assistant | DX: Z12.11 Encounter for screening for malignant neoplasm of colon (principal) | CPT/HCPCS: 99202 ==

== ENCOUNTER 2023-11-02 10:51 | Outpatient (AMB) | payer MEDICARE, MEDICAID, SELFPAY ==
[2023-11-02 11:01] VITALS: BP 102/70; PULSE 69; O2SAT 93; BMI 38.8
--- NOTE | 2023-11-02 11:01 | MHC.OFFVIS ---
Intake Vital Signs 11/02/23 11:01 Height 5 ft 4 in Weight 226 lb BMI 38.8 BP 102/70 Blood Pressure Location Lt brachial Position Sitting Pulse 69 Pulse Source Pulse Oximeter Pulse Oximetry (%) 93 Oxygen Delivery Method Room Air Intake Visit Reasons: COPD Intake Note: pt is here for follow up and needs nicotine patch resent to pharmacy, pt is smoking about 12 cigarettes a day, some coughing and shortness of breath once in a while. Commercial Insulator Required: No Allergies Penicillins [PENICILLINS] Allergy (Intermediate, Verified 11/02/23 11:24) SKIN PEELS Medication List - Last Reconciled 11/02/23 by Crystal Buckley MD Advair Diskus 250-50 mcg/dose (fluticasone propion-salmeterol) 1 ea PO BID NS aspirin 325 mg PO DAILY atorvastatin 40 mg PO BEDTIME 90 days bisacodyl (Dulcolax (bisacodyl)) 20 mg (4 x 5 mg) PO ONCE 1 day blood sugar diagnostic (Recommendiuch Ultra Test strips) Check blood sugar daily and as needed for signs/symptoms of hypo/hyperglycemia cyanocobalamin (vitamin B-12) 1,000 mcg IM Q4W 90 days lancets (Recommendiuch UltraSoft Lancets) Daily and as needed for hypo/hyperglycemia levothyroxine 125 mcg PO QAM 90 days metformin 1,000 mg PO BID pioglitazone 30 mg PO DAILY 90 days polyethylene glycol 3350 (Miralax) 238 grams PO ONCE 1 day risperidone (Risperdal) 2 mg PO BID risperidone microspheres ER (Risperdal Consta) 25 mg IM Q2W syringe with needle, safety (BD SafetyGlide Syringe) As directed tiotropium bromide (Spiriva with HandiHaler) 1 cap inhalation DAILY [Updraft machine As directed] Ventolin HFA 90 mcg/actuation (albuterol sulfate) 1 puff PO Q4H PRN NS Do you need a note to return to daycare/school/sports/work: No HPI COPD HPI Details 63 YEARS OLD FEMALE A E LONG-TIME SMOKER WITH CHRONIC OBSTRUCTIVE PULMONARY DISEASE, A CLIENT OF [facility]D PROGRAM, COMES IN AFTER. 6 MONTHS FOR FOLLOW-UP CONTINUES TO SMOKE AT PRESENT 12 CIGARETTES A DAY. SHE DOES NOT HAVE ANY NICOTINE PATCHES AT THIS TIME. DENIES ANY COUGH WHEEZING OR SHORTNESS OF BREATH. ACCORDING TO THE STAFF SHE DOES HAVE INTERMITTENT COUGH. SHE HAS HAD NO RESPIRATORY INFECTION. PATIENT HAS BEEN ACTIVE IN THE ANNUAL LUNG SCREENING PROGRAM. [facility] Medical History Pulmonary nodule Hypertensive retinopathy of both eyes Obesity Schizophrenia B12 deficiency Lipid disorder COPD (chronic obstructive pulmonary disease) Other specified hypothyroidism Diabetes 1.5, managed as type 2 Surgical History History of colonoscopy Family History Father No problems noted. Mother Diabetes mellitus Social History Household Members: None Housing: Apartment Do you presently have visiting nurse or other home services: Yes Patient Tobacco Use Status: Current everyday Tobacco user Tobacco use type: Cigarette Cigarettes Per Day: 10 Years Smoked: (onset 40yo, 1ppd x 21yrs, now 1/2ppd - 20pyh) e-Cigarette/Vaping Use: Never Used Second Hand Smoke Exposure: No service: No Current occupational status: unemployed and retired Cognitive needs: No Hearing needs: No Vision needs: No Review of Systems Const All systems reviewed & are unremarkable except as noted in HPI and below Eyes Reports no additional complaints ENT Reports no additional complaints Card Denies chest pain, Denies irregular heart rhythm and Denies leg edema Resp Reports as per HPI GI Reports no additional complaints Reports no additional complaints Musc Reports no additional complaints Skin/Breast Reports system reviewed and no additional complaints, except as documented Neuro Reports no additional complaints Psych Reports anxiety and Reports mood swings Endo Reports other (Diabetes mellitus, hypothyroidism being treated) Physical Exam Vital Signs: Last Vital Signs Pulse 69 11/02/23 11:01 BP 102/70 11/02/23 11:01 Pulse Ox 93 11/02/23 11:01 Oxygen Delivery Method Room Air 11/02/23 11:01 BMI result Body Mass Index 38.8 Const General: comfortable, no acute distress, alert and awake Orientation/consciousness: patient oriented x3 HEENT Head: Yes normal to inspection General nose exam: No nasal polyps present and No nasal discharge present Face and sinus: Yes sinuses nontender Mouth: oropharynx abnormals (OROPHARYNX IS CROWDED, MALLAMPATI CLASS 4) Throat: Yes posterior oropharynx normal Eyes General: appearance normal, both eyes and all related structures Neck Neck: Yes normal visual inspection, Yes no lymphadenopathy, Yes trachea midline, Yes no JVD and Yes other (NECK CIRCUMFERENCE 17 IN) Thyroid: Thyroid normal Chest Chest palpation & inspection: normal inspection of the chest, normal palpation of entire chest wall and no tenderness Resp Other: PERCUSSION NOTE IS RESONANT, BREATH SOUNDS ARE DISTANT WITH PROLONGED EXPIRATORY PHASE. NO CREPITATIONS OR WHEEZES ARE HEARD TODAY. Cardio Palpation: normal PMI Rate: regular rate Rhythm: regular rhythm Heart sounds: no gallops and no murmurs GI Palpation (GI): Soft to palpation, nontender, No hepatosplenomegaly present and no masses Auscultation: normal bowel sounds Back/Spine/Pelvis Thoracic/Lumbar Spine: thoracic and lumbar spine normal to inspection and thoraco-lumbar ROM limited Skin General skin exam: no rashes or lesions noted Neuro General: patient oriented x3 and no focal motor deficits Cranial nerves: Yes CN's II-XII intact bilaterally Extrem General: Yes normal to inspection, Yes no clubbing, cyanosis or edema and Yes no calf tenderness Psych Appearance: grossly normal, well kempt and other (NOT TOO CONCERNED ABOUT HER MEDICAL ISSUES) Speech and movement: Normal speech and movement present Assessment & Plan Assessment & Plan (1) Nicotine dependence, cigarettes, uncomplicated: Comment: (current smoker - onset 40yo , 1ppd x21yrs, now 12 cigarettes a day . Wants to start using Nicotine patches again . Code(s): F17.210 - Nicotine dependence, cigarettes, uncomplicated Plan: I did tell her that it is a good idea to use nicotine patch. I Nicotine patch 14 mg is prescribed to apply 1 patch daily and keep on cutting down the number of cigarettes (2) COPD (chronic obstructive pulmonary disease): Comment: PATIENT DOES HAVE MODERATELY SEVERE OBSTRUCTIVE PULMONARY DISORDER. EXPLAINED TO THE PATIENT . Code(s): J44.9 - Chronic obstructive pulmonary disease, unspecified Plan: [place] : ADVAIR 250-50 1 INHALATION B.I.D. IS PRESCRIBED. PROAIR 2 PUFFS Q 4-6 HOURS P.R.N.. NO NEED TO USE SPIRIVA. (3) Pulmonary nodule: Comment: This patient does have 1 pulmonary nodule 8x1.2 mm in size. Code(s): R91.1 - Solitary pulmonary nodule Plan: STRESS THAT SHE SHOULD HAVE ANNUAL LOW DOSE CT SCAN OF THE CHEST. Medications: New nicotine 1 patch transdermal Q24H 28 ea 3RF QUIT SMOKING 28 days Coding Level of Care Code Est Pt Level 3 (05740) Diagnoses Nicotine dependence, cigarettes, uncomplicated F17.210 COPD (chronic obstructive pulmonary disease) J44.9 Pulmonary nodule R91.1
== END 2023-11-02 11:33 | disposition home or self-care (01) ==
PROVIDERS: PCP Internal Medicine; Visit Provider Internal Medicine
DX: F17.210 Nicotine dependence, cigarettes, uncomplicated (principal); J44.9 Chronic obstructive pulmonary disease, unspecified; R91.1 Solitary pulmonary nodule
CPT/HCPCS: 99213

== ENCOUNTER → 2023-11-02 10:51 | Outpatient (BNVA) | payer MEDICARE, MEDICAID, SELFPAY | PROVIDERS: PCP Internal Medicine; Visit Provider Internal Medicine | DX: J44.9 Chronic obstructive pulmonary disease, unspecified (principal); R91.1 Solitary pulmonary nodule; F17.210 Nicotine dependence, cigarettes, uncomplicated | CPT/HCPCS: 99212 ==

== ENCOUNTER 2023-11-17 11:06 | Outpatient (AMB) | payer MEDICARE, MEDICAID, SELFPAY ==
[2023-11-17 11:10] VITALS: BP 122/60; PULSE 93; O2SAT 92; BMI 38.4
--- NOTE | 2023-11-17 11:10 | MHC.PC.OV ---
Vital Signs 11/17/23 11:10 Height 5 ft 4 in Weight 224 lb BMI 38.4 BP 122/60 Blood Pressure Location Rt brachial Position Sitting Pulse 93 Pulse Source Pulse Oximeter Pulse Oximetry (%) 92 Oxygen Delivery Method Room Air Intake Visit Reasons: Annual PE resched Allergies Penicillins [PENICILLINS] Allergy (Intermediate, Verified 11/17/23 11:11) SKIN PEELS Medication List - Last Reconciled 11/17/23 by Tung Dowling MD Advair Diskus 250-50 mcg/dose (fluticasone propion-salmeterol) 1 ea PO BID NS aspirin 325 mg PO DAILY atorvastatin 40 mg PO BEDTIME 90 days bisacodyl (Dulcolax (bisacodyl)) 20 mg (4 x 5 mg) PO ONCE 1 day blood sugar diagnostic (Picanova Ultra Test strips) Check blood sugar daily and as needed for signs/symptoms of hypo/hyperglycemia cyanocobalamin (vitamin B-12) 1,000 mcg IM Q4W 90 days lancets (Spriguch UltraSoft Lancets) Daily and as needed for hypo/hyperglycemia levothyroxine 125 mcg PO QAM 90 days metformin 1,000 mg PO BID nicotine 1 patch transdermal Q24H 28 days pioglitazone 30 mg PO DAILY 90 days polyethylene glycol 3350 (Miralax) 238 grams PO ONCE 1 day risperidone (Risperdal) 2 mg PO BID risperidone microspheres ER (Risperdal Consta) 25 mg IM Q2W syringe with needle, safety (BD SafetyGlide Syringe) As directed tiotropium bromide (Spiriva with HandiHaler) 1 cap inhalation DAILY [Updraft machine As directed] Ventolin HFA 90 mcg/actuation (albuterol sulfate) 1 puff PO Q4H PRN NS Tobacco use date assessed: 11/17/23 Dental Screening Dental Screen Date: 11/17/23 Did you have a dental visit in the last 12 months?: No Was dental information given to patient?: Patient has dentist HPI Annual PE resched HPI Details Patient is here for physical exam She has finally gotten FINANCIAL ADVOCATE, and is doing well personal hygiene has improved and she is eating well. However continued to smoke 12 cigarettes a day, patient is seeing government affairs specialist Dr. Buckley, last visit was 11/02/2023 Nicoderm patches were sent 14 mg which patient has not received yet. Mammogram is up-to-date Colonoscopy is up-to-date April of 2023 OBGYN visit is up-to-date BMI is elevated, patient have difficulty losing weight Due for labs today Follow-up 4 months and physical exam 1 year ON LICENSE OF [facility] Medical History Pulmonary nodule Hypertensive retinopathy of both eyes Obesity Schizophrenia B12 deficiency Lipid disorder COPD (chronic obstructive pulmonary disease) Other specified hypothyroidism Diabetes 1.5, managed as type 2 Surgical History History of colonoscopy Family History Father No problems noted. Mother Diabetes mellitus Social History Household Members: None Housing: Apartment Do you presently have visiting nurse or other home services: Yes Patient Tobacco Use Status: Current everyday Tobacco user Tobacco use type: Cigarette Cigarettes Per Day: 10 Years Smoked: (onset 40yo, 1ppd x 21yrs, now 1/2ppd - 20pyh) e-Cigarette/Vaping Use: Never Used Second Hand Smoke Exposure: No service: No Current occupational status: unemployed and retired Cognitive needs: No Hearing needs: No Vision needs: No Questionnaire PHQ-9 Over the last 2 weeks, how often have you been bothered by any of the following problems? 1. Little interest or pleasure in doing things: not at all 2. Feeling down, depressed, or hopeless: not at all 3. Trouble falling or staying asleep, or sleeping too much: not at all 4. Feeling tired or having little energy: not at all 5. Poor appetite or overeating: not at all 6. Feeling bad about yourself - or that you are a failure or have let yourself or your family down: not at all 7. Trouble concentrating on things, such as reading the newspaper or watching television: not at all 8. Moving or speaking so slowly that other people could have noticed. Or the opposite - being so fidgety or restless that you have been moving around a lot more than usual: not at all 9. Thoughts that you would be better off or of hurting yourself in some way: not at all Total score: 0 Depression Screening Interpretation: Negative Depression Screening Done: Yes 23442 - PHQ-9 Billing: Yes Source: Developed by Drs. Suhail Duvall, Miguelangel Hi and colleagues, with an educational suzanna from [employer]. Thrive Questionnaire Date Thrive assessed: 11/17/23 I am a: Patient What is your living situation today?: I have a steady place to live Within the past 12 months, did the food you bought not last and you didn't have the money to get more?: Never true Within the past 12 months, did you worry whether your food would run out before you got money to buy more?: Never true Do you have trouble paying for medicines?: No Do you have trouble getting transportation to medical appointments?: No Do you have trouble paying your heating and electricity bill?: No Do you have trouble taking care of your child, family member or friend?: No Do you have trouble with day-to-day activities such as bathing, preparing meals, shopping, managing finances, etc.?: Yes Are you currently unemployed and looking for a job?: No Are you interested in more education?: No Please select the resources that you would like help with: None Currently or been in a relationship where the following occur: no concerns reported AUDIT C Alcohol Use Questionnaire (AUDIT-C) 1. How often do you have a drink containing alcohol?: Never Total Score: 0 SEEMA-7 AMB Questionnaire SEEMA-7 Date SEEMA - 7 assessed: 11/17/23 Feeling nervous, anxious, or on edge: 0 = Not at all Not being able to stop or control worryin = Not at all Worrying too much about different things: 0 = Not at all Trouble relaxin = Not at all Being so restless that it is hard to sit still: 0 = Not at all Becoming easily annoyed or irritable: 0 = Not at all Feeling afraid as if something awful might happen: 0 = Not at all Total SEEMA-7 score (0-4 normal; 5-9 mild; 10-14 moderate; 15-21 severe): 0 Source: Developed by Laila Hardy Kurt Kroenke and colleagues, with an educational suzanna from [employer]. SEEMA-7 Assessment Billing SEEMA-7 Assessment Tool: SEEMA-7 Assessment 74630 Review of Systems Const Denies chills, Denies fever(s) and Denies headache(s) ENT Denies headache(s), Denies nasal discharge, Denies nasal obstruction, Denies odynophagia and Denies sinus pain Card Denies chest pain at rest and Denies chest pain with activity Resp Denies cough and Denies hemoptysis GI Denies diarrhea, Denies odynophagia, Denies vomiting and Denies hematemesis Reports as per HPI Musc Denies abnormal gait Skin/Breast Reports as per HPI Neuro Denies Neuro-related abnormal movements, Denies Abnormal speech present, Denies abnormal gait and Denies headache(s) Endo Reports as per HPI Davin/Lymph Reports as per HPI Aller/Immun Reports as per HPI Physical exam (Primary Care) Vital Signs: Last Vital Signs Pulse 93 11/17/23 11:10 BP 122/60 11/17/23 11:10 Pulse Ox 92 11/17/23 11:10 Oxygen Delivery Method Room Air 11/17/23 11:10 BMI result Body Mass Index 38.4 Tobacco/Smoking Status: Tobacco use Status Tobacco use date assessed 11/17/23 11/17/23 11:13 Patient Tobacco Use Status Current everyday Tobacco 11/17/23 11:13 Tobacco use type Cigarette 11/17/23 11:13 e-Cigarette/Vaping Use Never Used 11/17/23 11:13 PHQ-9: PHQ-9 Score PHQ-9: Total score 0 11/17/23 11:19 Depression Screening Interpretation: Negative Thrive Assessment: Date of Thrive Assessment Date Thrive assessed 11/17/23 11/17/23 11:19 Currently or been in a relationship where the following occur: no concerns reported Const General: cooperative, comfortable and no acute distress Orientation/consciousness: patient oriented x3 HENMT Head: Yes normocephalic and Yes atraumatic Eyes General: appearance normal, both eyes and all related structures Pupils: Equal, round and reactive pupils present EOM: EOMs intact bilaterally Neck Neck: Yes supple and No lymphadenopathy Thyroid: Thyroid normal Lymphatic: no lymphadenopathy noted Resp Other: Wheezing right side of lung posteriorly Effort & Inspection: normal respiratory effort and able to speak in complete sentences Cardio Heart sounds: S1 normal heart sound present and S2 normal heart sound present GI Palpation (GI): Soft to palpation and nontender Auscultation: normal bowel sounds General: Yes no CVA tenderness Back/Spine/Pelvis Back: no CVA tenderness Skin General skin exam: elasticity normal and turgor normal Neuro General: patient oriented x3 and gait normal Cranial nerves: Yes Equal, round and reactive pupils present Speech: No Abnormal speech present Coordination: tandem gait normal and Romberg test negative Extrem General: Yes normal exam except as noted and No edema Assessment and Plan Assessment & Plan (1) Encounter for general adult medical examination with abnormal findings: Code(s): Z00.01 - Encounter for general adult medical examination with abnormal findings (2) Personal history of nicotine dependence: Comment: (current smoker - onset 40yo , 1ppd x21yrs, now 1/2ppd - 20pyh) Counselled to quit are at least cut down the number of cigarettes. With her background diagnosis of Schizophrenia it will be difficult for her to quit completely. Code(s): Z87.891 - Personal history of nicotine dependence (3) Other specified hypothyroidism: Code(s): E03.8 - Other specified hypothyroidism (4) B12 deficiency: Code(s): E53.8 - Deficiency of other specified B group vitamins (5) Diabetes 1.5, managed as type 2: Code(s): E13.9 - Other specified diabetes mellitus without complications (6) Lipid disorder: Code(s): E78.9 - Disorder of lipoprotein metabolism, unspecified (7) Smokers' cough: Comment: Mild intermittent cough during the daytime is related to her smoking and COPD. Code(s): J41.0 - Simple chronic bronchitis (8) COPD (chronic obstructive pulmonary disease): Comment: PATIENT DOES HAVE MODERATELY SEVERE OBSTRUCTIVE PULMONARY DISORDER. EXPLAINED TO THE PATIENT . Code(s): J44.9 - Chronic obstructive pulmonary disease, unspecified Qualifiers: COPD type: emphysema Emphysema type: panlobular Qualified Code(s): J43.1 - Panlobular emphysema (9) Schizophrenia: Comment: Patient is on appropriate anti psychotic meds. Code(s): F20.9 - Schizophrenia, unspecified Qualifiers: Schizophrenia type: schizophreniform disorder Qualified Code(s): F20.81 - Schizophreniform disorder (10) Pulmonary nodule: Comment: This patient does have 1 pulmonary nodule 8x1.2 mm in size. Code(s): R91.1 - Solitary pulmonary nodule (11) Obesity: Comment: She is grossly obese, not in any shape to lose weight. Denies symptoms of sleep apnea. Code(s): E66.9 - Obesity, unspecified Qualifiers: Obesity type: due to excess calories Obesity classification: adult class 2 (BMI 35 - 39.9) Serious obesity comorbidity presence: with serious comorbidity Body mass index: BMI 38.0-38.9 Qualified Code(s): E66.01 - Morbid (severe) obesity due to excess calories; Z68.38 - Body mass index [BMI] 38.0-38.9, adult (12) Dependent for comprehension: Code(s): Z78.9 - Other specified health status Plan Patient is here for physical exam She has finally gotten FINANCIAL ADVOCATE, and is doing well personal hygiene has improved and she is eating well. However continued to smoke 12 cigarettes a day, patient is seeing government affairs specialist Dr. Buckley, last visit was 11/02/2023 Nicoderm patches were sent 14 mg which patient has not received yet. Schizophrenia management through Psychiatry Mammogram is up-to-date Colonoscopy is up-to-date April of 2023 OBGYN visit is up-to-date BMI is elevated, patient have difficulty losing weight Due for labs today Follow-up 4 months and physical exam 1 year Orders: Orders Complete Blood Count Auto Diff Today E03.8 - Other specified hypothyroidism, E13.9 - Other specified diabetes mellitus without complications, E53.8 - Deficiency of other specified B group vitamins, E66.9 - Obesity, unspecified, E78.9 - Disorder of lipoprotein metabolism, unspecified, F20.9 - Schizophrenia, unspecified, J41.0 - Simple chronic bronchitis, J44.9 - Chronic obstructive pulmonary disease, unspecified, R91.1 - Solitary pulmonary nodule, Z00.01 - Encounter for general adult medical examination with abnormal findings, Z12.11 - Encounter for screening for malignant neoplasm of colon, Z87.891 - Personal history of nicotine dependence Comprehensive Met. Panel Today E03.8 - Other specified hypothyroidism, E13.9 - Other specified diabetes mellitus without complications, E53.8 - Deficiency of other specified B group vitamins, E66.9 - Obesity, unspecified, E78.9 - Disorder of lipoprotein metabolism, unspecified, F20.9 - Schizophrenia, unspecified, J41.0 - Simple chronic bronchitis, J44.9 - Chronic obstructive pulmonary disease, unspecified, R91.1 - Solitary pulmonary nodule, Z00.01 - Encounter for general adult medical examination with abnormal findings, Z12.11 - Encounter for screening for malignant neoplasm of colon, Z87.891 - Personal history of nicotine dependence LDL Cholesterol Direct Today E03.8 - Other specified hypothyroidism, E13.9 - Other specified diabetes mellitus without complications, E53.8 - Deficiency of other specified B group vitamins, E66.9 - Obesity, unspecified, E78.9 - Disorder of lipoprotein metabolism, unspecified, F20.9 - Schizophrenia, unspecified, J41.0 - Simple chronic bronchitis, J44.9 - Chronic obstructive pulmonary disease, unspecified, R91.1 - Solitary pulmonary nodule, Z00.01 - Encounter for general adult medical examination with abnormal findings, Z12.11 - Encounter for screening for malignant neoplasm of colon, Z87.891 - Personal history of nicotine dependence TSH reflex Free T4 Today E03.8 - Other specified hypothyroidism, E13.9 - Other specified diabetes mellitus without complications, E53.8 - Deficiency of other specified B group vitamins, E66.9 - Obesity, unspecified, E78.9 - Disorder of lipoprotein metabolism, unspecified, F20.9 - Schizophrenia, unspecified, J41.0 - Simple chronic bronchitis, J44.9 - Chronic obstructive pulmonary disease, unspecified, R91.1 - Solitary pulmonary nodule, Z00.01 - Encounter for general adult medical examination with abnormal findings, Z12.11 - Encounter for screening for malignant neoplasm of colon, Z87.891 - Personal history of nicotine dependence Hemoglobin A1c Today E03.8 - Other specified hypothyroidism, E13.9 - Other specified diabetes mellitus without complications, E53.8 - Deficiency of other specified B group vitamins, E66.9 - Obesity, unspecified, E78.9 - Disorder of lipoprotein metabolism, unspecified, F20.9 - Schizophrenia, unspecified, J41.0 - Simple chronic bronchitis, J44.9 - Chronic obstructive pulmonary disease, unspecified, R91.1 - Solitary pulmonary nodule, Z00.01 - Encounter for general adult medical examination with abnormal findings, Z12.11 - Encounter for screening for malignant neoplasm of colon, Z87.891 - Personal history of nicotine dependence Coding Level of Care Code Est [facility] 40-64y(84786) Diagnoses Encounter for general adult medical examination with abnormal findings Z00.01 Personal history of nicotine dependence Z87.891 Other specified hypothyroidism E03.8 B12 deficiency E53.8 Diabetes 1.5, managed as type 2 E13.9 Lipid disorder E78.9 Smokers' cough J41.0 Panlobular emphysema J43.1 COPD type: emphysema Emphysema type: panlobular 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
== END 2023-11-17 11:36 | disposition home or self-care (01) ==
PROVIDERS: PCP Internal Medicine; Visit Provider Internal Medicine
DX: Z00.00 Encounter for general adult medical examination without abnormal findings (principal); E13.9 Other specified diabetes mellitus without complications; J43.1 Panlobular emphysema; J41.0 Simple chronic bronchitis; F20.81 Schizophreniform disorder; E66.01 Morbid (severe) obesity due to excess calories; Z87.891 Personal history of nicotine dependence; E03.8 Other specified hypothyroidism; E53.8 Deficiency of other specified B group vitamins; E78.9 Disorder of lipoprotein metabolism, unspecified; R91.1 Solitary pulmonary nodule; Z68.38 Body mass index [BMI] 38.0-38.9, adult
CPT/HCPCS: 99396

== ENCOUNTER 2023-11-17 11:32 | Outpatient (REF) | payer MEDICARE, MEDICAID, SELFPAY | END 2023-11-17 11:33 | disposition home or self-care (01) | LOC: HO.HMGCLDS 11:32 | PROVIDERS: PCP Internal Medicine; Visit Provider Internal Medicine | DX: Z00.01 Encounter for general adult medical examination with abnormal findings (principal); E03.8 Other specified hypothyroidism; E13.9 Other specified diabetes mellitus without complications; E78.9 Disorder of lipoprotein metabolism, unspecified; E53.8 Deficiency of other specified B group vitamins; E66.9 Obesity, unspecified; J41.0 Simple chronic bronchitis; R91.1 Solitary pulmonary nodule; F20.9 Schizophrenia, unspecified; Z87.891 Personal history of nicotine dependence; Z12.11 Encounter for screening for malignant neoplasm of colon | CPT/HCPCS: 36415; 80053; 83036; 83721; 84443; 85025 ==

== ENCOUNTER → 2023-12-09 23:59 | Outpatient (BNV) | payer MEDICARE, MEDICAID, SELFPAY | PROVIDERS: PCP Internal Medicine; Visit Provider Internal Medicine | DX: E11.9 Type 2 diabetes mellitus without complications (principal); J44.9 Chronic obstructive pulmonary disease, unspecified; D51.9 Vitamin B12 deficiency anemia, unspecified; G31.84 Mild cognitive impairment of uncertain or unknown etiology | CPT/HCPCS: G0179 ==

== ENCOUNTER → 2024-01-12 23:59 | Outpatient (BNV) | payer MEDICARE, MEDICAID, SELFPAY | PROVIDERS: PCP Internal Medicine; Visit Provider Internal Medicine | DX: E11.9 Type 2 diabetes mellitus without complications (principal) | CPT/HCPCS: G0179 ==

== ENCOUNTER 2024-02-17 08:44 | Outpatient (AMB) | payer MEDICARE, MEDICAID, SELFPAY ==
--- NOTE | 2024-02-17 09:06 | A.OFFVIS_ITS ---
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 No complaints. Last Pap/HPV was negative in 02/03 Last Mammogram was BI-RADS 1 in The patient is scheduled for a screening Colonoscopy in 4 months [facility] Medical History Pulmonary nodule Hypertensive retinopathy of both eyes Obesity Schizophrenia B12 deficiency Lipid disorder COPD (chronic obstructive pulmonary disease) Other specified hypothyroidism Diabetes 1.5, managed as type 2 Surgical History History of colonoscopy Family History Father No problems noted. Mother Diabetes mellitus Social History Household Members: None Housing: Apartment Do you presently have visiting nurse or other home services: Yes Patient Tobacco Use Status: Current everyday Tobacco user Tobacco use type: Cigarette Cigarettes Per Day: 10 Years Smoked: (onset 40yo, 1ppd x 21yrs, now 1/2ppd - 20pyh) e-Cigarette/Vaping Use: Never Used Second Hand Smoke Exposure: No Patient : No service: No Current occupational status: unemployed and retired Cognitive needs: No Hearing needs: No Vision needs: No Female Reproductive History Menstrual Total pregnancies: 0 Date of last pap smear: 01/16/22 History of abnormal pap smear: No Date of Mammogram: 04/20/23 History of abnormal mammogram: No Review of Systems Const All systems reviewed & are unremarkable except as noted in HPI and below Card Reports as per HPI Resp Reports as per HPI GI Reports as per HPI and Reports no additional complaints Reports as per HPI Physical Exam Vital Signs: Last Vital Signs BP 118/74 02/17/24 09:15 BMI result Body Mass Index 36.8 Const General: cooperative, healthy appearing and comfortable Chest Chest palpation & inspection: normal inspection of the chest and normal palpation of entire chest wall Breast/axilla inspection: normal inspection of the breasts and normal inspection of the axillae Breast/axilla palpation: normal palpation of the breasts, normal palpation of the axillae and no axillary lymphadenopathy Resp Effort & Inspection: normal respiratory effort Auscultation: clear to auscultation bilaterally Percussion: percussion normal Cardio Palpation: normal PMI Rate: regular rate Rhythm: regular rhythm Heart sounds: no murmurs and no rubs Peripheral pulses: Peripheral pulses 2+ throughout GI Inspection: Yes normal to inspection Palpation (GI): Soft to palpation, nontender, no guarding, not rigid and No hepatosplenomegaly present Percussion: Yes normal to percussion Auscultation: normal bowel sounds Rectal Exam - Female: deferred General: Yes bladder normal to palpation External Female Exam: No lesion Speculum Exam - Vagina: normal appearance of the vagina, normal palpation, normal vaginal discharge and not erythematous Speculum Exam - Cervix: normal appearance of the cervix and normal palpation Bimanual exam- vagina & uterus: normal bimanual exam, normal palpation, uterine size normal, bladder normal to palpation, consistency normal and normal palpation Bimanual Exam- Adnexa, other: normal adnexae, no masses and no tenderness Assessment & Plan Assessment & Plan (1) Well woman exam: Code(s): Z01.419 - Encounter for gynecological examination (general) (routine) without abnormal findings Plan: Co testing not indicated this year. Counseled the patient about the recommended dietary allowance of 1200 mg of Calcium & 600 IU of vitamin D. Instructions given to patient to schedule her next screening Mammogram in 05/08. The patient is scheduled in 07/08 for screening colonoscopy . The patient was instructed to perform monthly self-breast exams and schedule annual exam in a year. All questions answered and the patient verbalized understanding. Coding Level of Care Code Est Pt Prev Care 40-64y(63084) Diagnoses Well woman exam Z01.419
[2024-02-17 09:15] VITALS: BP 118/74; BMI 36.8
== END 2024-02-17 09:47 | disposition home or self-care (01) ==
LOC: HO.HWS 08:44
PROVIDERS: PCP Internal Medicine; Visit Provider Obstetrics & Gynecology
DX: Z01.419 Encounter for gynecological examination (general) (routine) without abnormal findings (principal)
CPT/HCPCS: G0101

== ENCOUNTER → 2024-02-17 08:44 | Outpatient (BNVA) | payer MEDICARE, MEDICAID, SELFPAY | PROVIDERS: PCP Internal Medicine; Visit Provider Obstetrics & Gynecology | DX: Z01.419 Encounter for gynecological examination (general) (routine) without abnormal findings (principal) | CPT/HCPCS: G0101 ==

== ENCOUNTER 2024-03-07 12:48 | Outpatient (REF) | payer MEDICARE, MEDICAID, SELFPAY ==
--- NOTE | ~2024-03-07 | CT_ITS ---
EXAMINATION: CT LUNG SCREENING CLINICAL INFORMATION: Nicotine dependence, cigarettes, uncomplicated. The patient is a current smoker with a 30 pack-year history of smoking. COMPARISON: CT chest 03/25/2023. X-ray chest 02/05/2022. TECHNIQUE: Multidetector volumetric CT imaging of the chest is performed on a Siemens SOMATOM Perspective scanner without contrast using low dose technique. Additional 2D coronal and sagittal reformatted images and axial 3D maximum intensity projection (MIP) images are generated on the CT workstation. This CT examination was performed using dose optimization techniques as appropriate, variously including the following: *Automated exposure control *Adjustment of mA and/or kV according to patient size (this includes techniques or standardized protocols for targeted exams where dose is matched to indication/reason for exam; i.e. extremities or head) *Use of iterative reconstruction technique DLP: 120 mGy-cm. FINDINGS: LUNGS: Mild emphysema is seen. Moderate bronchial thickening is present with some areas of inspissated mucus and bronchial plugging (for example, right lower lobe 5:304). Some of these areas are new, some of these areas are old. A few benign micronodules are seen (for example, subpleural left lower lobe (5:292). There has been complete clearing of an area of infiltrate previously seen in the right lower lobe (prior 5:316). There is a new area of scarring/atelectasis in the left lower lobe. MEDIASTINUM: The mediastinum is normal. CORONARY ARTERY CALCIFICATION: None visualized on this study. PLEURA: There is no pleural effusion. No pleural mass or thickening. AXILLA: No lymphadenopathy. UPPER ABDOMEN: There is cholelithiasis. OSSEOUS STRUCTURES: Unremarkable. CT/CT lung screening IMPRESSION: No evidence of malignancy. Mild emphysema with bronchial thickening and plugging, and a few small benign nodules. Clearing of right lower lobe infiltrate. Incidental gallstones. ASSESSMENT: Lung-RADS category 2: Benign. RECOMMENDATION: Routine annual low-dose CT screening in 12 months.
== END 2024-03-07 12:49 | disposition home or self-care (01) ==
LOC: HO.CT 12:48
PROVIDERS: PCP Internal Medicine; Visit Provider Internal Medicine Pulmonary Disease
DX: Z12.2 Encounter for screening for malignant neoplasm of respiratory organs (principal); F17.210 Nicotine dependence, cigarettes, uncomplicated
CPT/HCPCS: 71271

== ENCOUNTER 2024-03-21 11:59 | Outpatient (AMB) | payer MEDICARE, MEDICAID, SELFPAY ==
[2024-03-21 12:04] VITALS: BP 120/68; PULSE 79; O2SAT 95; BMI 38.1
--- NOTE | 2024-03-21 12:04 | A.OFFPC_ITS ---
Vital Signs 03/21/24 12:04 Height 5 ft 4 in Weight 222 lb 2 oz BMI 38.1 BP 120/68 Blood Pressure Location Lt brachial Position Sitting Pulse 79 Pulse Source Pulse Oximeter Pulse Oximetry (%) 95 Oxygen Delivery Method Room Air Intake Visit Reasons: 4 month fu Allergies Penicillins [PENICILLINS] Allergy (Intermediate, Verified 03/21/24 12:05) SKIN PEELS Medication List - Last Reconciled 03/21/24 by Tung Dowling MD Advair Diskus 250-50 mcg/dose (fluticasone propion-salmeterol) 1 ea PO BID NS aspirin 325 mg PO DAILY atorvastatin 40 mg PO BEDTIME 90 days bisacodyl (Dulcolax (bisacodyl)) 20 mg (4 x 5 mg) PO ONCE 1 day blood sugar diagnostic (iStreamPlanet Ultra Test strips) Check blood sugar daily and as needed for signs/symptoms of hypo/hyperglycemia cyanocobalamin (vitamin B-12) 1,000 mcg IM Q4W 90 days lancets (Verimatrixuch UltraSoft Lancets) Daily and as needed for hypo/hyperglycemia levothyroxine 125 mcg PO QAM 90 days metformin 1,000 mg PO BID nicotine 1 patch transdermal Q24H 28 days pioglitazone 30 mg PO DAILY 90 days polyethylene glycol 3350 (Miralax) 238 grams PO ONCE 1 day risperidone (Risperdal) 2 mg PO BID risperidone microspheres ER (Risperdal Consta) 25 mg IM Q2W syringe with needle, safety (BD SafetyGlide Syringe) As directed tiotropium bromide (Spiriva with HandiHaler) 1 cap inhalation DAILY [Updraft machine As directed] Ventolin HFA 90 mcg/actuation (albuterol sulfate) 1 puff PO Q4H PRN NS Tobacco use date assessed: 03/21/24 Dental Screening Dental Screen Date: 03/21/24 Did you have a dental visit in the last 12 months?: Yes Did you have a dental problem in the last 6 months where you did not have access to dental care?: No Was dental information given to patient?: Patient has dentist HPI 4 month fu HPI Details Patient is 63-year-old female with a history of schizophrenia came in today with the staff member for follow-up Patient is now using Nicoderm patches 14 mg and has cut down on her smoking Patient has severe COPD she is doing well now, using all her inhalers Her lungs are clear. Patient is managed by public transit specialist at [facility] Dr. Buckley Hypothyroidism:? continue levothyroxine 125 mcg TSH is stable, last time patient had labs was November of this year Diabetes: Hemoglobin A1c is stable, patient is on pioglitazone 15 mg, metformin 1000 mg b.i.d., BMI is elevated, that too is a struggle for the patient Lipid disorder: Continue atorvastatin 40 mg daily She is also on a B12 supplement for low B12 levels. Psychiatric illness managed by psychiatry. Follow-up 3 months [facility] Medical History Pulmonary nodule Hypertensive retinopathy of both eyes Obesity Schizophrenia B12 deficiency Lipid disorder COPD (chronic obstructive pulmonary disease) Other specified hypothyroidism Diabetes 1.5, managed as type 2 Surgical History History of colonoscopy Family History Father No problems noted. Mother Diabetes mellitus Social History Household Members: None Housing: Apartment Do you presently have visiting nurse or other home services: Yes Patient Tobacco Use Status: Current everyday Tobacco user Tobacco use type: Cigarette Cigarettes Per Day: 10 Years Smoked: (onset 40yo, 1ppd x 21yrs, now 1/2ppd - 20pyh) e-Cigarette/Vaping Use: Never Used Second Hand Smoke Exposure: No service: No Current occupational status: unemployed and retired Cognitive needs: No Hearing needs: No Vision needs: No Questionnaire Thrive Questionnaire Date Thrive assessed: 11/17/23 AUDIT C Alcohol Use Questionnaire (AUDIT-C) 1. How often do you have a drink containing alcohol?: Never 3. How often do you have six or more drinks on one occasion?: Never Total Score: 0 Score Reviewed/Action Taken: Yes SEEMA-7 AMB Questionnaire SEEMA-7 Date SEEMA - 7 assessed: 11/17/23 Source: Developed by Drs. Suhail Duvall, Laila Sprague, Miguelangel Ruano and colleagues, with an educational suzanna from [employer]. Review of Systems Const Denies chills and Denies fever(s) ENT Denies epistaxis and Denies nasal discharge Card Denies chest pain Resp Denies chest congestion and Denies hemoptysis GI Denies diarrhea and Denies nausea Skin/Breast Denies rash Neuro Reports no additional complaints Psych Reports no additional complaints Endo Reports no additional complaints Physical exam (Primary Care) Vital Signs: Last Vital Signs Pulse 79 03/21/24 12:04 BP 120/68 03/21/24 12:04 Pulse Ox 95 03/21/24 12:04 Oxygen Delivery Method Room Air 03/21/24 12:04 BMI result Body Mass Index 38.1 Tobacco/Smoking Status: Tobacco use Status Tobacco use date assessed 03/21/24 03/21/24 12:07 Patient Tobacco Use Status Current everyday Tobacco 03/21/24 12:07 Tobacco use type Cigarette 03/21/24 12:07 e-Cigarette/Vaping Use Never Used 03/21/24 12:07 Thrive Assessment: Date of Thrive Assessment Date Thrive assessed 11/17/23 03/21/24 12:07 Const General: cooperative, comfortable and no acute distress HENMT Head: Yes normocephalic Eyes General: appearance normal, both eyes and all related structures Neck Neck: Yes supple Resp Effort & Inspection: normal respiratory effort, no cough and no stridor Cardio Rhythm: regular rhythm Heart sounds: S1 normal heart sound present and S2 normal heart sound present Skin General skin exam: turgor normal Neuro General: tone normal and moves all extremities Extrem Right lower extremity: no edema Left lower extremity: no edema Results AMB Hemoglobin A1c AMB Hemoglobin A1c 5.9 % Last Edit by Mejia Sun MA on 03/21/24 12:19 Assessment and Plan Assessment & Plan (1) Diabetes 1.5, managed as type 2: Code(s): E13.9 - Other specified diabetes mellitus without complications (2) B12 deficiency: Code(s): E53.8 - Deficiency of other specified B group vitamins (3) Other specified hypothyroidism: Code(s): E03.8 - Other specified hypothyroidism (4) Lipid disorder: Code(s): E78.9 - Disorder of lipoprotein metabolism, unspecified (5) COPD (chronic obstructive pulmonary disease): Comment: PATIENT DOES HAVE MODERATELY SEVERE OBSTRUCTIVE PULMONARY DISORDER. EXPLAINED TO THE PATIENT . Code(s): J44.9 - Chronic obstructive pulmonary disease, unspecified Qualifiers: COPD type: emphysema Emphysema type: panlobular Qualified Code(s): J43.1 - Panlobular emphysema (6) Nicotine dependence, cigarettes, uncomplicated: Comment: (current smoker - onset 40yo , 1ppd x21yrs, now 12 cigarettes a day . Wants to start using Nicotine patches again . Code(s): F17.210 - Nicotine dependence, cigarettes, uncomplicated (7) Smokers' cough: Comment: Mild intermittent cough during the daytime is related to her smoking and COPD. Code(s): J41.0 - Simple chronic bronchitis (8) Schizophrenia: Comment: Patient is on appropriate anti psychotic meds. Code(s): F20.9 - Schizophrenia, unspecified Qualifiers: Schizophrenia type: schizophreniform disorder Qualified Code(s): F20.81 - Schizophreniform disorder (9) Obesity: Comment: She is grossly obese, not in any shape to lose weight. Denies symptoms of sleep apnea. Code(s): E66.9 - Obesity, unspecified Qualifiers: Obesity type: due to excess calories Obesity classification: adult class 2 (BMI 35 - 39.9) Serious obesity comorbidity presence: with serious comorbidity Body mass index: BMI 38.0-38.9 Qualified Code(s): E66.01 - Morbid (severe) obesity due to excess calories; Z68.38 - Body mass index [BMI] 38.0- 38.9, adult Plan Patient is 63-year-old female with a history of schizophrenia came in today with the staff member for follow-up Patient is now using Nicoderm patches 14 mg and has cut down on her smoking Patient has severe COPD she is doing well now, using all her inhalers Her lungs are clear. Patient is managed by public transit specialist at [facility] Dr. Buckley Hypothyroidism:? continue levothyroxine 125 mcg TSH is stable, last time patient had labs was November of this year Diabetes: Hemoglobin A1c is stable, patient is on pioglitazone 15 mg, metformin 1000 mg b.i.d., BMI is elevated, that too is a struggle for the patient Lipid disorder: Continue atorvastatin 40 mg daily She is also on a B12 supplement for low B12 levels. Psychiatric illness managed by psychiatry. Follow-up 3 months Orders: Orders Complete Blood Count Auto Diff Today E03.8 - Other specified hypothyroidism, E13.9 - Other specified diabetes mellitus without complications, E53.8 - Deficiency of other specified B group vitamins, E78.9 - Disorder of lipoprotein metabolism, unspecified, F17.210 - Nicotine dependence, cigarettes, uncomplicated, F20.81 - Schizophreniform disorder, J41.0 - Simple chronic bronchitis, J43.1 - Panlobular emphysema Microalbumin, Random (w Creat) Today E03.8 - Other specified hypothyroidism, E13.9 - Other specified diabetes mellitus without complications, E53.8 - Deficiency of other specified B group vitamins, E78.9 - Disorder of lipoprotein metabolism, unspecified, F17.210 - Nicotine dependence, cigarettes, uncomplicated, F20.81 - Schizophreniform disorder, J41.0 - Simple chronic bronchitis, J43.1 - Panlobular emphysema Vitamin B12 Today E53.8 - Deficiency of other specified B group vitamins Comprehensive Met. Panel Today E03.8 - Other specified hypothyroidism, E13.9 - Other specified diabetes mellitus without complications, E53.8 - Deficiency of other specified B group vitamins, E78.9 - Disorder of lipoprotein metabolism, unspecified, F17.210 - Nicotine dependence, cigarettes, uncomplicated, F20.81 - Schizophreniform disorder, J41.0 - Simple chronic bronchitis, J43.1 - Panlobular emphysema LDL Cholesterol Direct Today E03.8 - Other specified hypothyroidism, E13.9 - Other specified diabetes mellitus without complications, E53.8 - Deficiency of other specified B group vitamins, E78.9 - Disorder of lipoprotein metabolism, unspecified, F17.210 - Nicotine dependence, cigarettes, uncomplicated, F20.81 - Schizophreniform disorder, J41.0 - Simple chronic bronchitis, J43.1 - Panlobular emphysema Vitamin D 25-OH (D2 and D3) Today E53.8 - Deficiency of other specified B group vitamins Coding Level of Care Code Est Pt Level 4 (53856) Diagnoses Diabetes 1.5, managed as type 2 E13.9 B12 deficiency E53.8 Other specified hypothyroidism E03.8 Lipid disorder E78.9 Panlobular emphysema J43.1 COPD type: emphysema Emphysema type: panlobular Nicotine dependence, cigarettes, uncomplicated F17.210 Smokers' cough J41.0 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 Class 2 severe obesity due to excess calories with serious comorbidity and body mass index (BMI) of 38.0 to 38.9 in adult E66.01; Z68.38 Obesity type: due to excess calories Obesity classification: adult class 2 (BMI 35 - 39.9) Serious obesity comorbidity presence: with serious comorbidity Body mass index: BMI 38.0-38.9
== END 2024-03-21 12:16 | disposition home or self-care (01) ==
PROVIDERS: PCP Internal Medicine; Visit Provider Internal Medicine
DX: E13.9 Other specified diabetes mellitus without complications (principal); J43.1 Panlobular emphysema; J41.0 Simple chronic bronchitis; F20.81 Schizophreniform disorder; E66.01 Morbid (severe) obesity due to excess calories; E53.8 Deficiency of other specified B group vitamins; E03.8 Other specified hypothyroidism; E78.9 Disorder of lipoprotein metabolism, unspecified; Z68.38 Body mass index [BMI] 38.0-38.9, adult; F17.210 Nicotine dependence, cigarettes, uncomplicated
CPT/HCPCS: 83036; 99214

== ENCOUNTER 2024-03-21 12:17 | Outpatient (REF) | payer MEDICARE, MEDICAID, SELFPAY ==
[2024-03-21 13:17] LABS: MANUAL DIFF FLAG NO
[2024-03-21 13:41] LABS: Basophils Percent Auto 0.9 % (0-2); Eosinophils Absolute Auto 0.1 X10*3/uL (0.0-0.4); Eosinophils Percent Auto 1.7 % (0-4); Hematocrit 40.9 % (37.0-47.0); Hemoglobin 12.6 g/dl (12.0-16.0); Imm Gran Abs Auto 0.02 X10*3/uL (0.00-0.03); Imm Gran Pct Auto 0.5 % (0.0-0.4); Lymphocytes Absolute Auto 0.8 X10*3/uL (1.2-4.9); Lymphocytes Percent Auto 18.4 % (20-40); Mean Corpuscular HGB Conc 30.8 g/dl (31.0-35.0); Mean Corpuscular Hemoglobin 25.8 pg (27.0-33.0); Mean Corpuscular Volume 83.8 fL (80.0-98.0); Mean Platelet Volume 10.2 fL (9.4-12.3); Monocytes Absolute Auto 0.3 X10*3/uL (0.1-1.2); Monocytes Percent Auto 6.4 % (2-11); Neutrophils Absolute Auto 3.1 x10*3/uL (2.0-8.3); Neutrophils Percent Auto 72.1 % (45-73); Platelet Count 242 X10*3/uL (160-400); Red Blood Count 4.88 X10*6/uL (4.20-5.50); White Blood Count 4.2 X10*3/uL (4.8-10.8)
[2024-03-21 14:12] LABS: Alanine Aminotransferase 19 U/L (0-31); Albumin Level 4.6 g/dL (3.5-5.0); Alkaline Phosphatase 88 U/L (39-117); Anion Gap 17 (12-20); Aspartate Amino Transferase 15 U/L (5-31); Bilirubin Total 0.7 mg/dL (0.0-1.0); Blood Urea Nitrogen 6 mg/dL (9-16); Calcium 9.7 mg/dL (8.4-10.2); Carbon Dioxide 24 mmol/L (22-29); Chloride 103 mmol/L (96-108); Estimated Glomerular Filt Rate > 60; Glucose Random 130 mg/dL (60-115); Potassium 3.9 mmol/L (3.3-5.1); Sodium 140 mmol/L (135-145); Total Protein 7.6 g/dL (6.5-8.0)
[2024-03-21 14:21] LABS: Creatinine Urine 50.05 mg/dL; Microalbumin Urine < 5.0 mg/L
[2024-03-21 14:42] LABS: Vitamin B12 578 pg/mL (200-900)
[2024-03-22 09:09] LABS: LDL Cholesterol Direct 59 mg/dL (<100)
[2024-03-25 17:18] LABS: Vitamin D 25-OH, D2 <4 ng/mL; Vitamin D 25-OH, D3 12 ng/mL; Vitamin D 25-OH, Total 12 ng/mL (30-100)
== END 2024-03-21 12:18 | disposition home or self-care (01) ==
LOC: HO.HMGCLDS 12:17
PROVIDERS: PCP Internal Medicine; Visit Provider Internal Medicine
DX: E53.8 Deficiency of other specified B group vitamins (principal); E03.8 Other specified hypothyroidism; E13.9 Other specified diabetes mellitus without complications; E78.9 Disorder of lipoprotein metabolism, unspecified; J43.1 Panlobular emphysema; F17.210 Nicotine dependence, cigarettes, uncomplicated; J41.0 Simple chronic bronchitis; F20.81 Schizophreniform disorder
CPT/HCPCS: 36415; 80053; 82043; 82306; 82570; 82607; 83721; 85025

== ENCOUNTER 2024-04-26 11:09 | Outpatient (AMB) | payer MEDICARE, MEDICAID, SELFPAY ==
[2024-04-26 11:15] VITALS: BP 120/70; PULSE 84; O2SAT 96; BMI 37.1
--- NOTE | 2024-04-26 11:15 | MHC.OFFVIS ---
Vital Signs 04/26/24 11:15 Height 5 ft 4 in Weight 216 lb 0.848 oz BMI 37.1 BP 120/70 Blood Pressure Location Lt brachial Position Sitting Pulse 84 Pulse Source Pulse Oximeter Pulse Oximetry (%) 96 Oxygen Delivery Method Room Air Intake Visit Reasons: COPD Intake Note: pt is here for follow up and states she is fine Transplanter Orchid Required: No Allergies Penicillins [PENICILLINS] Allergy (Intermediate, Verified 04/26/24 11:36) SKIN PEELS Medication List - Last Reconciled 04/26/24 by Crystal Buckley MD Advair Diskus 250-50 mcg/dose (fluticasone propion-salmeterol) 1 ea PO BID NS aspirin 325 mg PO DAILY atorvastatin 40 mg PO BEDTIME 90 days bisacodyl (Dulcolax (bisacodyl)) 20 mg (4 x 5 mg) PO ONCE 1 day blood sugar diagnostic ([employer] Ultra Test strips) Check blood sugar daily and as needed for signs/symptoms of hypo/hyperglycemia cyanocobalamin (vitamin B-12) 1,000 mcg IM Q4W 90 days lancets ([employer] UltraSoft Lancets) Daily and as needed for hypo/hyperglycemia levothyroxine 125 mcg PO QAM 90 days metformin 1,000 mg PO BID nicotine 1 patch transdermal Q24H 28 days pioglitazone 30 mg PO DAILY 90 days polyethylene glycol 3350 (Miralax) 238 grams PO ONCE 1 day risperidone (Risperdal) 2 mg PO BID risperidone microspheres ER (Risperdal Consta) 25 mg IM Q2W syringe with needle, safety (BD SafetyGlide Syringe) As directed [Updraft machine As directed] Ventolin HFA 90 mcg/actuation (albuterol sulfate) 1 puff PO Q4H PRN NS Do you need a note to return to daycare/school/sports/work: No HPI HPI COPD: Details: 63 YEARS OLD FEMALE VERY PLEASANT, CASE OF BIPOLAR DISORDER, 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 SMOKING DOWN TO 3 CIGARETTES A DAY AND SHE IS PLANNING TO QUIT COMPLETELY SHE DOES HAVE INTERMITTENT COUGH AND SOME WHEEZING. SHE USES VENTOLIN P.R.N., A FEW TIMES PER DAY. CURRENTLY NOT USING ADVAIR OR SPIRIVA. [facility] Medical History Pulmonary nodule Hypertensive retinopathy of both eyes Obesity Schizophrenia B12 deficiency Lipid disorder COPD (chronic obstructive pulmonary disease) Other specified hypothyroidism Diabetes 1.5, managed as type 2 Surgical History History of colonoscopy Family History Father No problems noted. Mother Diabetes mellitus Social History Household Members: None Housing: Apartment Do you presently have visiting nurse or other home services: Yes Patient Tobacco Use Status: Current someday Tobacco user Tobacco use type: Cigarette Cigarettes Per Day: 5 Years Smoked: (onset 40yo, 1ppd x 21yrs, now 1/2ppd - 20pyh) e-Cigarette/Vaping Use: Never Used Second Hand Smoke Exposure: No service: No Current occupational status: unemployed and retired Cognitive needs: No Hearing needs: No Vision needs: No Review of Systems Const All systems reviewed & are unremarkable except as noted in HPI and below Eyes Reports no additional complaints ENT Reports no additional complaints Card Denies chest pain, Denies irregular heart rhythm and Denies leg edema Resp Reports as per HPI GI Reports no additional complaints Reports no additional complaints Musc Reports no additional complaints Skin/Breast Reports system reviewed and no additional complaints, except as documented Neuro Reports no additional complaints Psych Reports anxiety and Reports mood swings Endo Reports other (Diabetes mellitus, hypothyroidism being treated) Physical Exam Vital Signs: Last Vital Signs Pulse 84 04/26/24 11:15 BP 120/70 04/26/24 11:15 Pulse Ox 96 04/26/24 11:15 Oxygen Delivery Method Room Air 04/26/24 11:15 BMI result Body Mass Index 37.1 Const General: comfortable, no acute distress, alert and awake Orientation/consciousness: patient oriented x3 HEENT Head: Yes normal to inspection General nose exam: No nasal polyps present and No nasal discharge present Face and sinus: Yes sinuses nontender Mouth: oropharynx abnormals (OROPHARYNX IS CROWDED, MALLAMPATI CLASS 4) Throat: Yes posterior oropharynx normal Eyes General: appearance normal, both eyes and all related structures Neck Neck: Yes normal visual inspection, Yes no lymphadenopathy, Yes trachea midline, Yes no JVD and Yes other (NECK CIRCUMFERENCE 17 IN) Thyroid: Thyroid normal Chest Chest palpation & inspection: normal inspection of the chest, normal palpation of entire chest wall and no tenderness Resp Other: PERCUSSION NOTE IS RESONANT, BREATH SOUNDS ARE DISTANT WITH PROLONGED EXPIRATORY PHASE. SHE DOES HAVE A FEW INSPIRATORY WHEEZES, PRESENT IN THE UPPER PARTS OF THE CHEST. Cardio Palpation: normal PMI Rate: regular rate Rhythm: regular rhythm Heart sounds: no gallops and no murmurs GI Palpation (GI): Soft to palpation, nontender, No hepatosplenomegaly present and no masses Auscultation: normal bowel sounds Back/Spine/Pelvis Thoracic/Lumbar Spine: thoracic and lumbar spine normal to inspection and thoraco-lumbar ROM limited Skin General skin exam: no rashes or lesions noted Neuro General: patient oriented x3 and no focal motor deficits Cranial nerves: Yes CN's II-XII intact bilaterally Extrem General: Yes normal to inspection, Yes no clubbing, cyanosis or edema and Yes no calf tenderness Psych Appearance: grossly normal, well kempt and other (NOT TOO CONCERNED ABOUT HER MEDICAL ISSUES) Speech and movement: Normal speech and movement present Assessment & Plan Assessment & Plan (1) Nicotine dependence, cigarettes, uncomplicated: Comment: (current smoker - onset 40yo , 1ppd x21yrs, now DOWN TO 3-4 cigarettes a day . Code(s): F17.210 - Nicotine dependence, cigarettes, uncomplicated Category: Medical Plan: TALKED TO HER ABOUT SMOKING, SHE SEEMS TO BE MOTIVATED TO QUIT COMPLETELY. CURRENTLY RESTRICTED TO 3 CIGARETTES A DAY, AND WOULD TRY TO CUT DOWN TO 2 AND THEN STOP COMPLETELY. (2) COPD (chronic obstructive pulmonary disease): Comment: PATIENT DOES HAVE MODERATELY SEVERE OBSTRUCTIVE PULMONARY DISORDER. EXPLAINED TO THE PATIENT . SHE HAS INTERMITTENT COUGH AND SOME WHEEZING SHE HAS STOPPED USING ADVAIR AND SPIRIVA, THIS MAY BE WHY SHE HAS SOME INSPIRATORY WHEEZES. Code(s): J44.9 - Chronic obstructive pulmonary disease, unspecified Category: Medical Qualifiers: COPD type: emphysema Emphysema type: panlobular Qualified Code(s): J43.1 - Panlobular emphysema Plan: ADVISE THAT SHE SHOULD RESUME USING ADVAIR 250-51 INHALATION B.I.D.. AND USE VENTOLIN 2 PUFFS Q 4-6 HOURS P.R.N. (3) Right lower lobe pulmonary nodule: Comment: 8x12 mm, nodule in right lower lobe. She is active in ANNUAL LUNG SCREENING program. Code(s): R91.1 - Solitary pulmonary nodule Category: Medical Plan: Advise that she should continue to have follow-ups in the lung screening program. Coding Level of Care Code Est Pt Level 3 (14533) Diagnoses Nicotine dependence, cigarettes, uncomplicated F17.210 Panlobular emphysema J43.1 COPD type: emphysema Emphysema type: panlobular Right lower lobe pulmonary nodule R91.1
== END 2024-04-26 11:36 | disposition home or self-care (01) ==
PROVIDERS: PCP Internal Medicine; Visit Provider Internal Medicine
DX: F17.210 Nicotine dependence, cigarettes, uncomplicated (principal); J43.1 Panlobular emphysema; R91.1 Solitary pulmonary nodule
CPT/HCPCS: 99213

== ENCOUNTER → 2024-04-26 11:09 | Outpatient (BNVA) | payer MEDICARE, MEDICAID, SELFPAY | PROVIDERS: PCP Internal Medicine; Visit Provider Internal Medicine | DX: J43.1 Panlobular emphysema (principal); R91.1 Solitary pulmonary nodule; F17.210 Nicotine dependence, cigarettes, uncomplicated | CPT/HCPCS: 99212 ==

== ENCOUNTER 2024-06-01 10:07 | Outpatient (REF) | payer MEDICARE, MEDICAID, SELFPAY | END 2024-06-01 10:08 | disposition home or self-care (01) | LOC: HO.MAMMO 10:07 | PROVIDERS: PCP Internal Medicine; Visit Provider Internal Medicine | DX: Z12.31 Encounter for screening mammogram for malignant neoplasm of breast (principal) | CPT/HCPCS: 77063; 77067 ==

== ENCOUNTER → 2024-06-01 10:30 | Outpatient (BNV) | payer MEDICARE, MEDICAID, SELFPAY | PROVIDERS: PCP Internal Medicine; Visit Provider Radiology Diagnostic Radiology | DX: Z12.31 Encounter for screening mammogram for malignant neoplasm of breast (principal) | CPT/HCPCS: 77063; 77067 ==

== ENCOUNTER 2024-07-10 12:08 | Day surgery (SDC) | payer MEDICARE, MEDICAID, SELFPAY ==
--- NOTE | 2024-02-14 09:35 | HO.ANESPROP2 ---
HPI - Anesthesia Eval Consult details Narrative: 63yo F for Colonoscopy [facility] Active Problems Active Problems: All Active Problems (Updated 11/17/23 @ 11:35 by Tung Dowling MD) Dependent for comprehension (Acute) Pulmonary nodule (Acute) Encounter for screening colonoscopy (Acute) Well woman exam (Acute) Schizophrenia (Acute) Right lower lobe pulmonary nodule (Acute) COPD (chronic obstructive pulmonary disease) (Acute) Nicotine dependence, cigarettes, uncomplicated (Acute) Smokers' cough (Acute) Lipid disorder (Acute) Diabetes 1.5, managed as type 2 (Acute) Other specified hypothyroidism (Acute) B12 deficiency (Acute) Obesity (Acute) Past Medical History Medical History Pulmonary nodule Hypertensive retinopathy of both eyes Obesity Schizophrenia B12 deficiency Lipid disorder COPD (chronic obstructive pulmonary disease) Other specified hypothyroidism Diabetes 1.5, managed as type 2 Family History Family History Father No problems noted. Mother Diabetes mellitus Surgical History Surgical History History of colonoscopy Social History Social History Household Members: None Housing: Apartment Do you presently have visiting nurse or other home services: Yes Patient Tobacco Use Status: Current everyday Tobacco user Tobacco use type: Cigarette Cigarettes Per Day: 10 Years Smoked: (onset 40yo, 1ppd x 21yrs, now 1/2ppd - 20pyh) e-Cigarette/Vaping Use: Never Used Second Hand Smoke Exposure: No service: No Current occupational status: unemployed and retired Cognitive needs: No Hearing needs: No Vision needs: No Meds Allergies Allergy/AdvReac Type Severity Reaction Status Date / Time Penicillins [PENICILLINS] Allergy Intermediate SKIN Verified 11/17/23 11:11 PEELS Home Medications Medication Instructions Recorded Confirmed Last Taken Type risperidone 2 mg tablet (Risperdal) 2 mg PO BID 10/03/20 11/17/23 Unknown History risperidone microspheres 25 mg/2 25 mg IM Q2W 02/05/22 11/17/23 02/05/22 History mL intramuscular susp,ext release (Risperdal Consta) tiotropium bromide 18 mcg capsule 1 cap inhalation DAILY 11/02/23 11/17/23 Unknown History with inhalation device (Spiriva with HandiHaler) Assessment and Plan Assessment Anesthesia Assessment: Chart Reviewed
[2024-07-10 12:19] VITALS: BP 145/88; PULSE 86; RESP 18; TEMP 36.9; O2SAT 95; BMI 37.8
[2024-07-10] MEDS: Lactated Ringers 1,000 ML 50 ML IVCONT (12:44)
[2024-07-10] MEDS: Albuterol Sulfate (0.083%) 2.5 MG/3 ML VIAL.NEB INHALE (12:54)
[2024-07-10 12:56] VITALS: PULSE 69; RESP 16; O2SAT 94
--- NOTE | 2024-07-10 13:02 | MHC.SHP ---
Pre-Procedural Eval Section A - 24 Hr Update-Section A only Date of Service: 07/10/24 The patient is an INPATIENT: No The patient has been examined within 24 hours of the surgical procedure. The History & Physical has been completed within 30 days and I have reviewed it.: No Section B - Complete if H&P > 30 days Chief Complaint: Colon cancer screening Relevant Family History (Specify if Yes): No Relevant Social History: Tobacco Use Present Medications: see Short Stay Collaborative assessment Medical History: Significant History (B12 deficiency COPD (chronic obstructive pulmonary disease) Diabetes 1.5, managed as type 2 Hypertensive retinopathy of both eyes Lipid disorder Obesity Other specified hypothyroidism Pulmonary nodule Schizophrenia) History of Previous Operations: Relevant previous surgery/procedure and date(s) (hx of colonoscopy) Allergies: Allergies Allergy/AdvReac Type Severity Reaction Status Date / Time Penicillins [PENICILLINS] Allergy Intermediate SKIN Verified 04/26/24 11:36 AUGUSTO Review of Systems Sugical H&P ROS: Negative: Constitution, Cardiovascular, Respiratory and Gastrointestinal Exam Surgical H&P Exam: Normal: Heart, Normal: Lungs, Normal: Extremities and Normal: Abdomen Plan Diagnosis/Plan: Unchanged I have reviewed the history and physical and performed a pertinent physical examination on my patient. No changes have occurred unless specified. Time Spent With Patient Time: Total time managing care of this patient today ____ minutes.
--- NOTE | 2024-07-10 13:28 | HO.ANESPROP2 ---
[facility] Active Problems Active Problems: All Active Problems Dependent for comprehension (Acute) Pulmonary nodule (Acute) Encounter for screening colonoscopy (Acute) Well woman exam (Acute) Schizophrenia (Acute) Right lower lobe pulmonary nodule (Acute) COPD (chronic obstructive pulmonary disease) (Acute) Nicotine dependence, cigarettes, uncomplicated (Acute) Smokers' cough (Acute) Lipid disorder (Acute) Diabetes 1.5, managed as type 2 (Acute) Other specified hypothyroidism (Acute) B12 deficiency (Acute) Obesity (Acute) Past Medical History Medical History Pulmonary nodule Hypertensive retinopathy of both eyes Obesity Schizophrenia B12 deficiency Lipid disorder COPD (chronic obstructive pulmonary disease) Other specified hypothyroidism Diabetes 1.5, managed as type 2 Family History Family History Father No problems noted. Mother Diabetes mellitus Family history of problems with anesthesia: No Surgical History Surgical History History of colonoscopy History of Problems with Anesthesia: No Social History Social History Household Members: None Housing: Apartment Do you presently have visiting nurse or other home services: Yes Patient Tobacco Use Status: Current everyday Tobacco user Tobacco use type: Cigarette Cigarettes Per Day: 5 Years Smoked: (onset 40yo, 1ppd x 21yrs, now 1/2ppd - 20pyh) e-Cigarette/Vaping Use: Never Used Second Hand Smoke Exposure: No Are you DNR?: No Advance Directives: No Advance Directives Information Provided: Yes service: No Current occupational status: unemployed and retired Cognitive needs: No Hearing needs: No Vision needs: No Meds Allergies Allergy/AdvReac Type Severity Reaction Status Date / Time Penicillins [PENICILLINS] Allergy Intermediate SKIN Verified 04/26/24 11:36 PEELS Active Medications: Current Medications Albuterol Sulfate (Albuterol Sulfate (0.083%) 2.5 Mg/3 Ml Vial.Neb) 2.5 mg INHALE ONCE PRN PRN Reason: Shortness of Breath/Wheezing Last Admin: 07/10/24 12:54 Dose: 2.5 mg Lactated Ringer's (Lr) 1,000 mls @ 50 mls/hr IVCONT .Q20H ESEQUIEL Last Admin: 07/10/24 12:44 Dose: 50 mls/hr Home Medications ?Medication ?Instructions ?Recorded ?Confirmed ?Last Taken ?Type risperidone 2 mg tablet (Risperdal) 2 mg PO BID 10/03/20 07/10/24 07/10/24 History Exam Height,Weight and Vital Signs: Height 5 ft 4 in Weight 99.926 kg Last Vital Signs Temp 98.5 F 07/10/24 12:19 Pulse 69 07/10/24 12:56 Resp 16 07/10/24 12:56 BP 145/88 H 07/10/24 12:19 Pulse Ox 95 07/10/24 12:19 O2 Del Method Room Air 07/10/24 12:19 Airway Mallampati Class: II (poor dentition, especially top front left, denies anything loose) TM Dist: >3cm Neck ROM: Full Heart: rrr Lungs: slight wheeze right lung Assessment and Plan Assessment Anesthesia Assessment: Anesthesia Plan Discussed and Chart Reviewed Final Anesthetic Review Family History of Problems with Anesthesia: No History of Problems with Anesthesia: No NPO: Yes ASA Class: III Final Preanesthetic Review: No Changes in Pt Med Stat, Meds/Allgs Chart Reviewed and Consent Obtained/Reviewed Patient Risk: Low Procedure Risk: Low Anesthetic Plan Anesthetic Plan: MAC: Disposition: Standard PACU
--- NOTE | 2024-07-10 14:37 | P.OPN-COLO_ITS ---
Colonoscopy Operative Note Operative Note Date of Service: 07/10/24 Narrative: COLONOSCOPY TILL CECUM WITH SNARE POLYPECTOMY, SUBMUCOSAL INJECTION AND HEMOCLIP PLACEMENT Pre-op diagnosis: Colon cancer screening (negative colon in [address] De Leon) Post-op diagnosis:? Colon polyps, Diverticulosis, hemorrhoids Endoscopist:? Michelle Beck MD Anesthesia:?MAC Consent: Indications for the procedure and potential complications of bleeding, perforation, reaction to medications and missed diagnosis were discussed with the patient and informed consent was obtained. Instrument: Olympus PCF H 190 L variable stiffness pediatric colonoscope Monitoring: Vital signs and clinical assessment, intermittent blood pressure monitoring, continuous EKG monitoring, Pulse oximetry and Carbon Dioxide monitoring were done throughout the procedure. Please see anesthesia flowsheet. Colon withdrawl time was 35 minutes. Procedure: The patient was placed in the left lateral decubitis position and pre-procedure medications were administered. After a digital rectal examination of the ano-rectum, the video colonoscope was inserted into the rectum and advanced through the colon to the cecum. The colonoscope was slowly withdrawn in a retrograde panoramic fashion and the colon mucosa was carefully examined including a retroflexed view of the rectum. Findings and interventions are described below. Procedure Difficulty: without difficulty Findings: Terminal Ileum: Not evaluated Cecum: Normal Ascending Colon: A 6-7 mm sessile polyp in the proximal AC - removed with a cold snare. A 3-4 mm sessile polyp in the distal AC - removed with a cold biopsy Transverse Colon: A 12-15 mm sessile polyp in the proximal TC at 70 cms - removed with a stiff hot snare. Polypectomy site was closed with 1 hemoclip and marked by Miriam ink. Two 10-12 mm sessile polyps - removed with a hot snare. A 7-8 mm sessile polyp - removed with a cold snare. Moderate diverticulosis Descending Colon: Moderate diverticulosis Sigmoid Colon: A 10-12 mm sessile polyp - removed with a hot snare. Moderate diverticulosis Rectum: A 10-12 mm sessile polyp - removed with a hot snare Ano-rectum: Moderate internal hemorrhoids Colon preparation: Good after copious irrigation. [place] Bowel Preparation Scale Right colon; 2 Transverse colon: 2 Left colon; 2 (0 = Unprepared colon segment with mucosa not seen due to solid stool that cannot be cleared. 1 = Portion of mucosa of the colon segment seen, but other areas of the colon segment not well seen due to staining, residual stool and/or opaque liquid. 2 = Minor amount of residual staining, small fragments of stool and/or opaque liquid, but mucosa of colon segment seen well. 3 = Entire mucosa of colon segment seen well with no residual staining, small fragments of stool or opaque liquid) Impression and Post Procedure Diagnosis: Colonoscopy Findings: Eight small to medium sized polyps were removed Moderate diverticulosis seen in the left and transverse colon Moderate hemorrhoids on retroflexed exam. Plan: I will send a letter with biopsy results Repeat Colonoscopy in 2 years if polyps are adenomatous and 10 year if polyps are hyperplastic. Above findings were reviewed with the patient and relevant handouts were given and the discharge area. BIOPSIES SHOWED: A. Colon, transverse, polypectomy: Fragments of tubular adenoma; negative for high-grade dysplasia or carcinoma. B. Colon, ascending, Fragments of tubular adenoma; negative for high-grade dysplasia or carcinoma. C. Colon, proximal transverse, polypectomy: Fragments of tubular adenoma; negative for high-grade dysplasia or carcinoma. D. Colon, sigmoid, polypectomy: Tubular adenoma; negative for high-grade dysplasia or carcinoma. E. Rectum, polypectomy: Tubular adenoma; negative for high-grade dysplasia or carcinoma Letter sent advising repeat colonoscopy in 2 years.
[2024-07-10 14:39] VITALS: BP 148/77; PULSE 62; RESP 16; TEMP 36.1; O2SAT 94
[2024-07-10 14:51] LABS: Glucose, Whole Blood 78 mg/dL (60-115)
[2024-07-10 14:54] VITALS: BP 157/73; PULSE 67; RESP 16; O2SAT 95
[2024-07-10 15:06] LABS: Glucose, Whole Blood 89 mg/dL (60-115)
[2024-07-10 15:07] VITALS: BP 129/69; PULSE 66; RESP 16; TEMP 36.2; O2SAT 97
== END 2024-07-10 15:53 | disposition home or self-care (01) ==
PROVIDERS: PCP Internal Medicine; Visit Provider Internal Medicine Gastroenterology
PROC: 0DJD8ZZ Inspection of Lower Intestinal Tract, Via Natural or Artificial Opening Endoscopic (ICD-10-PCS; CPT 45378; principal; 2024-07-10 13:30)
DX: Z12.11 Encounter for screening for malignant neoplasm of colon (principal); D12.2 Benign neoplasm of ascending colon; D12.3 Benign neoplasm of transverse colon; D12.5 Benign neoplasm of sigmoid colon; D12.8 Benign neoplasm of rectum; K57.30 Diverticulosis of large intestine without perforation or abscess without bleeding; K64.8 Other hemorrhoids; E13.8 Other specified diabetes mellitus with unspecified complications; H35.033 Hypertensive retinopathy, bilateral; I10 Essential (primary) hypertension; J44.9 Chronic obstructive pulmonary disease, unspecified; F17.210 Nicotine dependence, cigarettes, uncomplicated; E03.9 Hypothyroidism, unspecified; E53.8 Deficiency of other specified B group vitamins; R91.1 Solitary pulmonary nodule; F20.9 Schizophrenia, unspecified; Z79.84 Long term (current) use of oral hypoglycemic drugs; Z79.82 Long term (current) use of aspirin; Z79.51 Long term (current) use of inhaled steroids; Z79.899 Other long term (current) drug therapy; Z88.0 Allergy status to penicillin
CPT/HCPCS: 45385; 45380; 45381; 82947; 88305; 94640; J2704

== ENCOUNTER → 2024-07-10 12:08 | Outpatient (BNV) | payer MEDICARE, MEDICAID, SELFPAY | PROVIDERS: PCP Internal Medicine; Visit Provider Internal Medicine Gastroenterology | DX: Z12.11 Encounter for screening for malignant neoplasm of colon (principal); D12.3 Benign neoplasm of transverse colon; D12.2 Benign neoplasm of ascending colon; D12.8 Benign neoplasm of rectum; D12.5 Benign neoplasm of sigmoid colon; K57.30 Diverticulosis of large intestine without perforation or abscess without bleeding; K64.8 Other hemorrhoids | CPT/HCPCS: 45380; 45385 ==

== ENCOUNTER 2024-07-25 09:30 | Outpatient (AMB) | payer MEDICARE, MEDICAID, SELFPAY ==
--- NOTE | 2024-07-25 09:35 | A.OFFPC_ITS ---
Vital Signs 07/25/24 09:40 Height 5 ft 4 in Weight 214 lb 8 oz BMI 36.8 BP 122/66 Blood Pressure Location Rt brachial Position Sitting Pulse 70 Pulse Source Pulse Oximeter Pulse Oximetry (%) 93 Intake Visit Reasons: 4 month follow up Allergies Penicillins [PENICILLINS] Allergy (Intermediate, Verified 07/25/24 09:43) SKIN PEELS Medication List - Last Reconciled 07/25/24 by Tung Dowling MD Advair Diskus 250-50 mcg/dose (fluticasone propion-salmeterol) 1 ea PO BID NS aspirin 325 mg PO DAILY atorvastatin 40 mg PO BEDTIME 90 days blood sugar diagnostic ([employer] Ultra Test strips) Check blood sugar daily and as needed for signs/symptoms of hypo/hyperglycemia lancets ([employer] UltraSoft Lancets) Daily and as needed for hypo/hyperglycemia levothyroxine 125 mcg PO QAM 90 days metformin 1,000 mg PO BID pioglitazone 30 mg PO DAILY 90 days risperidone (Risperdal) 2 mg PO BID syringe with needle, safety (BD SafetyGlide Syringe) As directed [Updraft machine As directed] Ventolin HFA 90 mcg/actuation (albuterol sulfate) 1 puff PO Q4H PRN NS Tobacco use date assessed: 03/21/24 Dental Screening Dental Screen Date: 03/21/24 HPI 4 month follow up HPI Details Patient is 63-year-old female with a history of schizophrenia came in today with the staff member for follow-up, however staff member left patient and will return to picker Patient has severe COPD she is doing well now, using all her inhalers Her lungs are clear. She is seeing senior analysis specialist [facility] for the management Hypothyroidism:? continue levothyroxine 125 mcg TSH is stable Diabetes: Hemoglobin A1c is stable, patient is on pioglitazone 15 mg, metformin 1000 mg b.i.d., Due for labs BMI is elevated, that too is a struggle for the patient Lipid disorder: Continue atorvastatin 40 mg daily She is also on a B12 supplement for low B12 levels. Psychiatric illness managed by psychiatry. Follow-up 3 months [facility] Medical History Pulmonary nodule Hypertensive retinopathy of both eyes Obesity Schizophrenia B12 deficiency Lipid disorder COPD (chronic obstructive pulmonary disease) Other specified hypothyroidism Diabetes 1.5, managed as type 2 Surgical History History of colonoscopy Family History Father No problems noted. Mother Diabetes mellitus Social History Household Members: None Housing: Apartment Do you presently have visiting nurse or other home services: Yes Patient Tobacco Use Status: Current everyday Tobacco user Tobacco use type: Cigarette Cigarettes Per Day: 5 Years Smoked: (onset 40yo, 1ppd x 21yrs, now 1/2ppd - 20pyh) e-Cigarette/Vaping Use: Never Used Second Hand Smoke Exposure: No service: No Current occupational status: unemployed and retired Cognitive needs: No Hearing needs: No Vision needs: No Questionnaire PHQ-9 Over the last 2 weeks, how often have you been bothered by any of the following problems? 1. Little interest or pleasure in doing things: not at all 2. Feeling down, depressed, or hopeless: not at all 3. Trouble falling or staying asleep, or sleeping too much: not at all 4. Feeling tired or having little energy: not at all 5. Poor appetite or overeating: not at all 6. Feeling bad about yourself - or that you are a failure or have let yourself or your family down: not at all 7. Trouble concentrating on things, such as reading the newspaper or watching television: not at all 8. Moving or speaking so slowly that other people could have noticed. Or the opposite - being so fidgety or restless that you have been moving around a lot more than usual: not at all 9. Thoughts that you would be better off or of hurting yourself in some way: not at all Total score: 0 Depression Screening Interpretation: Negative Depression Screening Done: Yes 69341 - PHQ-9 Billing: Yes Source: Developed by Drs. Suhail Duvall, Laila Sprague, Miguelangel Ruano and colleagues, with an educational suzanna from [employer]. Thrive Questionnaire Date Thrive assessed: 11/17/23 I am a: Patient What is your living situation today?: I have a steady place to live Within the past 12 months, did the food you bought not last and you didn't have the money to get more?: Sometimes True Within the past 12 months, did you worry whether your food would run out before you got money to buy more?: Sometimes True Do you have trouble paying for medicines?: Yes Do you have trouble getting transportation to medical appointments?: Yes Do you have trouble paying your heating and electricity bill?: Yes Do you have trouble taking care of your child, family member or friend?: No Do you have trouble with day-to-day activities such as bathing, preparing meals, shopping, managing finances, etc.?: Yes Are you currently unemployed and looking for a job?: Yes Are you interested in more education?: Yes Please select the resources that you would like help with: Paying for medicine, Care for elder or disabled and Job search/training Currently or been in a relationship where the following occur: I choose not to answer THRIVE Score: 4 AUDIT C Alcohol Use Questionnaire (AUDIT-C) 1. How often do you have a drink containing alcohol?: Never Total Score: 0 SEEMA-7 AMB Questionnaire SEEMA-7 Date SEEMA - 7 assessed: 11/17/23 Feeling nervous, anxious, or on edge: 1 = Several days Not being able to stop or control worryin = Several days Worrying too much about different things: 1 = Several days Trouble relaxin = Several days Being so restless that it is hard to sit still: 1 = Several days Becoming easily annoyed or irritable: 0 = Not at all Feeling afraid as if something awful might happen: 0 = Not at all Total SEEMA-7 score (0-4 normal; 5-9 mild; 10-14 moderate; 15-21 severe): 5 Source: Developed by Drs. Suhail Duvall, Laila Sprague, Miguelangel Ruano and colleagues, with an educational suzanna from [employer]. Review of Systems Const Denies chills and Denies fever(s) ENT Denies epistaxis and Denies nasal discharge Card Denies chest pain Resp Denies chest congestion, Denies cough and Denies hemoptysis GI Denies diarrhea and Denies nausea Skin/Breast Denies rash Neuro Reports no additional complaints Psych Reports no additional complaints Endo Reports no additional complaints Physical exam (Primary Care) Vital Signs: Last Vital Signs Pulse 70 07/25/24 09:40 BP 122/66 07/25/24 09:40 Pulse Ox 93 07/25/24 09:40 BMI result Body Mass Index 36.8 Tobacco/Smoking Status: Tobacco use Status Tobacco use date assessed 03/21/24 07/25/24 09:39 Patient Tobacco Use Status Current everyday Tobacco 07/25/24 09:39 Tobacco use type Cigarette 07/25/24 09:39 e-Cigarette/Vaping Use Never Used 07/25/24 09:39 PHQ-9: PHQ-9 Score PHQ-9: Total score 0 07/25/24 09:43 Depression Screening Interpretation: Negative Thrive Assessment: Date of Thrive Assessment Date Thrive assessed 11/17/23 07/25/24 09:39 Currently or been in a relationship where the following occur: I choose not to answer Const General: cooperative, comfortable and no acute distress HENMT Head: Yes normocephalic Eyes General: appearance normal, both eyes and all related structures Neck Neck: Yes supple Resp Effort & Inspection: normal respiratory effort, no cough and no stridor Cardio Rhythm: regular rhythm Heart sounds: S1 normal heart sound present and S2 normal heart sound present Skin General skin exam: turgor normal Neuro General: tone normal and moves all extremities Extrem Right lower extremity: no edema Left lower extremity: no edema Assessment and Plan Assessment & Plan (1) Diabetes 1.5, managed as type 2: Code(s): E13.9 - Other specified diabetes mellitus without complications (2) B12 deficiency: Code(s): E53.8 - Deficiency of other specified B group vitamins (3) Other specified hypothyroidism: Code(s): E03.8 - Other specified hypothyroidism (4) Lipid disorder: Code(s): E78.9 - Disorder of lipoprotein metabolism, unspecified (5) COPD (chronic obstructive pulmonary disease): Comment: PATIENT DOES HAVE MODERATELY SEVERE OBSTRUCTIVE PULMONARY DISORDER. EXPLAINED TO THE PATIENT . SHE HAS INTERMITTENT COUGH AND SOME WHEEZING SHE HAS STOPPED USING ADVAIR AND SPIRIVA, THIS MAY BE WHY SHE HAS SOME INSPIRATORY WHEEZES. Code(s): J44.9 - Chronic obstructive pulmonary disease, unspecified Qualifiers: COPD type: emphysema Emphysema type: panlobular Qualified Code(s): J43.1 - Panlobular emphysema (6) Nicotine dependence, cigarettes, uncomplicated: Comment: (current smoker - onset 40yo , 1ppd x21yrs, now DOWN TO 3-4 cigarettes a day . Code(s): F17.210 - Nicotine dependence, cigarettes, uncomplicated (7) Smokers' cough: Comment: Mild intermittent cough during the daytime is related to her smoking and COPD. Code(s): J41.0 - Simple chronic bronchitis (8) Schizophrenia: Comment: Patient is on appropriate anti psychotic meds. Code(s): F20.9 - Schizophrenia, unspecified Qualifiers: Schizophrenia type: schizophreniform disorder Qualified Code(s): F20.81 - Schizophreniform disorder (9) Obesity: Comment: She is grossly obese, not in any shape to lose weight. Denies symptoms of sleep apnea. Code(s): E66.9 - Obesity, unspecified Qualifiers: Body mass index: BMI 38.0-38.9 Obesity classification: adult class 2 (BMI 35 - 39.9) Obesity type: due to excess calories Serious obesity comorbidity presence: with serious comorbidity Qualified Code(s): E66.01 - Morbid (severe) obesity due to excess calories; Z68.38 - Body mass index [BMI] 38.0-38.9, adult Plan Patient is 63-year-old female with a history of schizophrenia came in today with the staff member for follow-up However staff member left patient and will return to pick her up Patient has severe COPD she is doing well now, using all her inhalers Her lungs are clear. She is seeing senior analysis specialist [facility] for the management Hypothyroidism:? continue levothyroxine 125 mcg TSH is stable Diabetes: Hemoglobin A1c is stable, patient is on pioglitazone 15 mg, metformin 1000 mg b.i.d., Due for labs BMI is elevated, that too is a struggle for the patient Lipid disorder: Continue atorvastatin 40 mg daily She is also on a B12 supplement for low B12 levels. Psychiatric illness managed by psychiatry. Follow-up 3 months Orders: Orders Complete Blood Count Auto Diff Today E03.8 - Other specified hypothyroidism, E13.9 - Other specified diabetes mellitus without complications, E66.01 - Morbid (severe) obesity due to excess calories, E78.9 - Disorder of lipoprotein metabolism, unspecified, F17.210 - Nicotine dependence, cigarettes, uncomplicated, F20.81 - Schizophreniform disorder, J43.1 - Panlobular emphysema, Z68.38 - Body mass index [BMI] 38.0-38.9, adult, Z78.9 - Other specified health status Hemoglobin A1c Today E03.8 - Other specified hypothyroidism, E13.9 - Other specified diabetes mellitus without complications, E66.01 - Morbid (severe) obe sity due to excess calories, E78.9 - Disorder of lipoprotein metabolism, unspecified, F17.210 - Nicotine dependence, cigarettes, uncomplicated, F20.81 - Schizophreniform disorder, J43.1 - Panlobular emphysema, Z68.38 - Body mass index [BMI] 38.0-38.9, adult, Z78.9 - Other specified health status Comprehensive Met. Panel Today E03.8 - Other specified hypothyroidism, E13.9 - Other specified diabetes mellitus without complications, E66.01 - Morbid (severe) obesity due to excess calories, E78.9 - Disorder of lipoprotein metabolism, unspecified, F17.210 - Nicotine dependence, cigarettes, uncomplicated, F20.81 - Schizophreniform disorder, J43.1 - Panlobular emphysema, Z68.38 - Body mass index [BMI] 38.0-38.9, adult, Z78.9 - Other specified health status LDL Cholesterol Direct Today E03.8 - Other specified hypothyroidism, E13.9 - Other specified diabetes mellitus without complications, E66.01 - Morbid (severe) obesity due to excess calories, E78.9 - Disorder of lipoprotein metabolism, unspecified, F17.210 - Nicotine dependence, cigarettes, uncomplicated, F20.81 - Schizophreniform disorder, J43.1 - Panlobular emphysema, Z68.38 - Body mass index [BMI] 38.0-38.9, adult, Z78.9 - Other specified health status TSH reflex Free T4 Today E03.8 - Other specified hypothyroidism, E13.9 - Other specified diabetes mellitus without complications, E66.01 - Morbid (severe) obesity due to excess calories, E78.9 - Disorder of lipoprotein metabolism, unspecified, F17.210 - Nicotine dependence, cigarettes, uncomplicated, F20.81 - Schizophreniform disorder, J43.1 - Panlobular emphysema, Z68.38 - Body mass index [BMI] 38.0-38.9, adult, Z78.9 - Other specified health status Coding Level of Care Code Est Pt Level 4 (54124) Complex EM visit Add On G2211 Diagnoses Diabetes 1.5, managed as type 2 E13.9 B12 deficiency E53.8 Other specified hypothyroidism E03.8 Lipid disorder E78.9 Panlobular emphysema J43.1 COPD type: emphysema Emphysema type: panlobular Nicotine dependence, cigarettes, uncomplicated F17.210 Smokers' cough J41.0 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 Class 2 severe obesity due to excess calories with serious comorbidity and body mass index (BMI) of 38.0 to 38.9 in adult E66.01; Z68.38 Body mass index: BMI 38.0-38.9 Obesity classification: adult class 2 (BMI 35 - 39.9) Obesity type: due to excess calories Serious obesity comorbidity presence: with serious comorbidity
[2024-07-25 09:40] VITALS: BP 122/66; PULSE 70; O2SAT 93; BMI 36.8
== END 2024-07-25 09:53 | disposition home or self-care (01) ==
PROVIDERS: PCP Internal Medicine; Visit Provider Internal Medicine
DX: E13.9 Other specified diabetes mellitus without complications (principal); J43.1 Panlobular emphysema; E66.01 Morbid (severe) obesity due to excess calories; Z68.38 Body mass index [BMI] 38.0-38.9, adult; J41.0 Simple chronic bronchitis; F20.81 Schizophreniform disorder; E53.8 Deficiency of other specified B group vitamins; E03.8 Other specified hypothyroidism; E78.9 Disorder of lipoprotein metabolism, unspecified; F17.210 Nicotine dependence, cigarettes, uncomplicated
CPT/HCPCS: 99214; G2211

== ENCOUNTER 2024-07-25 09:55 | Outpatient (REF) | payer MEDICARE, MEDICAID, SELFPAY ==
[2024-07-25 13:09] LABS: MANUAL DIFF FLAG NO
[2024-07-25 13:16] LABS: Estimated Average Glucose 120 mg/dL; Hemoglobin A1c % 5.8 % (<6.0)
[2024-07-25 13:17] LABS: Basophils Percent Auto 0.7 % (0-2); Eosinophils Absolute Auto 0.1 X10*3/uL (0.0-0.4); Eosinophils Percent Auto 1.2 % (0-4); Hematocrit 40.4 % (37.0-47.0); Hemoglobin 12.5 g/dl (12.0-16.0); Imm Gran Abs Auto 0.05 X10*3/uL (0.00-0.03); Imm Gran Pct Auto 1.2 % (0.0-0.4); Lymphocytes Absolute Auto 0.9 X10*3/uL (1.2-4.9); Mean Corpuscular HGB Conc 30.9 g/dl (31.0-35.0); Mean Corpuscular Hemoglobin 25.8 pg (27.0-33.0); Mean Corpuscular Volume 83.3 fL (80.0-98.0); Mean Platelet Volume 10.2 fL (9.4-12.3); Monocytes Absolute Auto 0.3 X10*3/uL (0.1-1.2); Monocytes Percent Auto 7.2 % (2-11); Neutrophils Absolute Auto 2.8 x10*3/uL (2.0-8.3); Neutrophils Percent Auto 67.7 % (45-73); Platelet Count 251 X10*3/uL (160-400); Red Blood Count 4.85 X10*6/uL (4.20-5.50); Red Cell Distribution Width 15.2 % (11.0-16.0); White Blood Count 4.2 X10*3/uL (4.8-10.8)
[2024-07-25 13:28] LABS: Alanine Aminotransferase 15 U/L (0-31); Albumin Level 4.5 g/dL (3.5-5.0); Alkaline Phosphatase 81 U/L (39-117); Anion Gap 15 (12-20); Aspartate Amino Transferase 12 U/L (5-31); Bilirubin Total 0.7 mg/dL (0.0-1.0); Blood Urea Nitrogen 8 mg/dL (9-16); Carbon Dioxide 26 mmol/L (22-29); Chloride 103 mmol/L (96-108); Estimated Glomerular Filt Rate > 60; Glucose Random 105 mg/dL (60-115); Potassium 4.6 mmol/L (3.3-5.1); Sodium 139 mmol/L (135-145); Total Protein 7.4 g/dL (6.5-8.0)
[2024-07-25 13:47] LABS: TSH reflex Free T4 0.16 uIU/mL (0.32-4.0)
[2024-07-25 14:39] LABS: Free T4 (Free Thyroxine) 1.36 ng/dL (0.71-1.85)
[2024-07-26 12:33] LABS: LDL Cholesterol Direct 63 mg/dL (<100)
== END 2024-07-25 09:56 | disposition home or self-care (01) ==
LOC: HO.HMGCLDS 09:55
PROVIDERS: PCP Internal Medicine; Visit Provider Internal Medicine
DX: E13.9 Other specified diabetes mellitus without complications (principal); E03.8 Other specified hypothyroidism; E66.01 Morbid (severe) obesity due to excess calories; Z68.38 Body mass index [BMI] 38.0-38.9, adult; E78.9 Disorder of lipoprotein metabolism, unspecified; F17.210 Nicotine dependence, cigarettes, uncomplicated; J43.1 Panlobular emphysema; F20.81 Schizophreniform disorder; Z78.9 Other specified health status
CPT/HCPCS: 36415; 80053; 83036; 83721; 84439; 84443; 85025

== ENCOUNTER → 2025-03-14 23:59 | Outpatient (BNV) | payer MEDICARE, MEDICAID, SELFPAY | PROVIDERS: PCP Internal Medicine; Visit Provider Internal Medicine | DX: E11.9 Type 2 diabetes mellitus without complications (principal); J44.9 Chronic obstructive pulmonary disease, unspecified; D51.9 Vitamin B12 deficiency anemia, unspecified | CPT/HCPCS: G0179 ==

== ENCOUNTER 2025-06-05 09:31 | Outpatient (AMB) | payer MEDICARE, MEDICAID, SELFPAY ==
--- NOTE | 2025-06-05 09:32 | A.OFFPC_ITS ---
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: No Accompanied by: Self / Same As Patient Allergies Penicillins (PENICILLINS) Allergy (Intermediate, Verified 06/05/25 09:33) SKIN PEELS Medication List - Last Reconciled 06/05/25 by Tung Dowling MD Advair Diskus 250-50 mcg/dose (fluticasone propion-salmeterol) 1 ea PO BID NS aspirin 325 mg PO DAILY atorvastatin 40 mg PO BEDTIME 90 days blood sugar diagnostic ([employer] Ultra Test strips) Check blood sugar daily and as needed for signs/symptoms of hypo/hyperglycemia bupropion HCl XL 150 mg PO QAM cyanocobalamin (vitamin B-12) mcg IM Q4W lancets ([employer] UltraSoft Lancets) Daily and as needed for hypo/hyperglycemia levothyroxine 125 mcg PO QAM 90 days metformin 1,000 mg PO BID pioglitazone 30 mg PO DAILY 90 days risperidone 0.5 mg PO BID syringe with needle, safety (BD SafetyGlide Syringe) As directed [Updraft machine As directed] Ventolin HFA 90 mcg/actuation (albuterol sulfate) 1 puff PO Q4H PRN NS Tobacco use date assessed: 06/05/25 Dental Screening Dental Screen Date: 06/05/25 Did you have a dental visit in the last 12 months?: No Did you have a dental problem in the last 6 months where you did not have access to dental care?: No Was dental information given to patient?: Patient declined (patient is going to be establishing with one soon) HPI 3m f/u HPI Details Details Patient is 64-year-old female with a history of schizophrenia lipid disorder, diabetes, obesity, chronic cigarette smoking, COPD, depression, hypothyroidism came in today with the staff member for follow-up, she was last seen July of last year did not come in after that for follow-up as staff member lost the appointment date Patient has severe COPD , using all her inhalers , at today's exam she has wheezing both lungs posteriorly She is seeing disease intervention specialist [facility] for the management Dr. Buckley and has appointment coming up Hypothyroidism:? continue levothyroxine 125 mcg TSH is stable Diabetes: Hemoglobin A1c is stable, patient is on pioglitazone 30 mg, metformin 1000 mg b.i.d., Due for labs She has lost 14 lb since July, her hemoglobin A1c is 5.4 today I am stopping the pioglitazone we will recheck hemoglobin again in 3 months Lipid disorder: Continue atorvastatin 40 mg daily She is also on a B12 supplement for low B12 levels. Psychiatric illness managed by psychiatry. Follow-up 3 months [facility] Medical History Pulmonary nodule Hypertensive retinopathy of both eyes Obesity Schizophrenia B12 deficiency Lipid disorder COPD (chronic obstructive pulmonary disease) Other specified hypothyroidism Diabetes 1.5, managed as type 2 Surgical History History of colonoscopy Family History Father No problems noted. Mother Diabetes mellitus Social History Household Members: None Housing: Apartment Do you presently have visiting nurse or other home services: Yes Patient Tobacco Use Status: Current everyday Tobacco user Tobacco use type: Cigarette Cigarettes Per Day: 5 Years Smoked: (onset 40yo, 1ppd x 21yrs, now 1/2ppd - 20pyh) e-Cigarette/Vaping Use: Never Used Second Hand Smoke Exposure: No service: No Current occupational status: unemployed and retired Cognitive needs: No Hearing needs: No Vision needs: No Questionnaire PHQ-9 Over the last 2 weeks, how often have you been bothered by any of the following problems? 1. Little interest or pleasure in doing things: not at all 2. Feeling down, depressed, or hopeless: not at all 3. Trouble falling or staying asleep, or sleeping too much: not at all 4. Feeling tired or having little energy: not at all 5. Poor appetite or overeating: not at all 6. Feeling bad about yourself - or that you are a failure or have let yourself or your family down: not at all 7. Trouble concentrating on things, such as reading the newspaper or watching television: several days 8. Moving or speaking so slowly that other people could have noticed. Or the opposite - being so fidgety or restless that you have been moving around a lot more than usual: not at all 9. Thoughts that you would be better off or of hurting yourself in some way: not at all Total score: 1 Depression Screening Interpretation: Negative Depression Screening Done: Yes 78005 - PHQ-9 Billing: Yes Source: Developed by Drs. Suhail Duvall, Laila Sprague, Miguelangel Ruano and colleagues, with an educational suzanna from [employer]. Thrive Questionnaire Date Thrive assessed: 06/05/25 I am a: Patient What is your living situation today?: I have a steady place to live Within the past 12 months, did the food you bought not last and you didn't have the money to get more?: Often true Within the past 12 months, did you worry whether your food would run out before you got money to buy more?: Sometimes True Do you have trouble paying for medicines?: No Do you have trouble getting transportation to medical appointments?: No Do you have trouble paying your heating and electricity bill?: No Do you have trouble taking care of your child, family member or friend?: No Do you have trouble with day-to-day activities such as bathing, preparing meals, shopping, managing finances, etc.?: No Are you currently unemployed and looking for a job?: No Are you interested in more education?: No Please select the resources that you would like help with: None Currently or been in a relationship where the following occur: I choose not to answer THRIVE Score: 2 AUDIT C Alcohol Use Questionnaire (AUDIT-C) 1. How often do you have a drink containing alcohol?: Never 3. How often do you have six or more drinks on one occasion?: Never Total Score: 0 Score Reviewed/Action Taken: Yes SEEMA-7 AMB Questionnaire SEEMA-7 Date SEEMA - 7 assessed: 06/05/25 Feeling nervous, anxious, or on edge: 0 = Not at all Not being able to stop or control worryin = Several days Worrying too much about different things: 1 = Several days Trouble relaxin = Several days Being so restless that it is hard to sit still: 1 = Several days Becoming easily annoyed or irritable: 0 = Not at all Feeling afraid as if something awful might happen: 1 = Several days Total SEEMA-7 score (0-4 normal; 5-9 mild; 10-14 moderate; 15-21 severe): 5 Source: Developed by Drs. Suhail Duvall, Laila Sprague, Miguelangel Ruano and colleagues, with an educational suzanna from [employer]. SEEMA-7 Assessment Billing SEEMA-7 Assessment Tool: SEEMA-7 Assessment 05746 Review of Systems Const Denies chills and Denies fever(s) ENT Denies epistaxis and Denies nasal discharge Card Denies chest pain Resp Denies chest congestion and Denies hemoptysis GI Denies diarrhea and Denies nausea Skin/Breast Denies rash Neuro Reports no additional complaints Psych Reports no additional complaints Endo Reports no additional complaints Physical exam (Primary Care) Vital Signs: Last Vital Signs Pulse 78 06/05/25 09:33 BP 112/62 06/05/25 09:33 Pulse Ox 95 06/05/25 09:33 Oxygen Delivery Method Room Air 06/05/25 09:33 BMI result Body Mass Index 34.3 Tobacco/Smoking Status: Tobacco use Status Tobacco use date assessed 06/05/25 06/05/25 09:34 Patient Tobacco Use Status Current everyday Tobacco 06/05/25 09:34 Tobacco use type Cigarette 06/05/25 09:34 e-Cigarette/Vaping Use Never Used 06/05/25 09:34 PHQ-9: PHQ-9 Score PHQ-9: Total score 1 06/05/25 09:34 Depression Screening Interpretation: Negative Thrive Assessment: Date of Thrive Assessment Date Thrive assessed 06/05/25 06/05/25 09:34 Currently or been in a relationship where the following occur: I choose not to answer Const General: cooperative, comfortable and no acute distress Orientation/consciousness: patient oriented x3 HENMT Head: Yes normocephalic Eyes General: appearance normal, both eyes and all related structures Neck Neck: Yes supple Resp Other: Wheezing both lungs posteriorly right more than left, no respiratory distress Effort & Inspection: normal respiratory effort, no cough and no stridor Cardio Rhythm: regular rhythm Heart sounds: S1 normal heart sound present and S2 normal heart sound present Skin General skin exam: turgor normal Neuro General: patient oriented x3, tone normal and moves all extremities Extrem Right lower extremity: no edema Left lower extremity: no edema Results AMB Hemoglobin A1c AMB Hemoglobin A1c 5.6 % Last Edit by Yeison Almodovar CMA on 06/05/25 09: 53 Coding Level of Care Code Est Pt Level 4 (14959) Complex EM visit Add On G2211 Diagnoses Diabetes 1.5, managed as type 2 E13.9 Other specified hypothyroidism E03.8 Lipid disorder E78.9 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 B12 deficiency E53.8 Dependent for comprehension Z78.9 Panlobular emphysema J43.1 COPD type: emphysema Emphysema type: panlobular Nicotine dependence, cigarettes, uncomplicated F17.210 Additional Codes SEEMA-7 Assessment Billing - SEEMA-7 Assessment Tool: SEEMA-7 Assessment 17163 ([id number]) PHQ-9 - 31510 - PHQ-9 Billing: Yes ([id number]) Assessment & Plan Assessment & Plan (1) Diabetes 1.5, managed as type 2: Code(s): E13.9 - Other specified diabetes mellitus without complications Category: Medical (2) Other specified hypothyroidism: Code(s): E03.8 - Other specified hypothyroidism Category: Medical (3) Lipid disorder: Code(s): E78.9 - Disorder of lipoprotein metabolism, unspecified Category: Medical (4) Schizophrenia: Comment: Patient is on appropriate anti psychotic meds. Code(s): F20.9 - Schizophrenia, unspecified Category: Medical Qualifiers: Schizophrenia type: schizophreniform disorder Qualified Code(s): F20.81 - Schizophreniform disorder (5) B12 deficiency: Code(s): E53.8 - Deficiency of other specified B group vitamins Category: Medical (6) Dependent for comprehension: Code(s): Z78.9 - Other specified health status Category: Medical (7) COPD (chronic obstructive pulmonary disease): Comment: PATIENT DOES HAVE MODERATELY SEVERE OBSTRUCTIVE PULMONARY DISORDER. EXPLAINED TO THE PATIENT . SHE HAS INTERMITTENT COUGH AND SOME WHEEZING SHE HAS STOPPED USING ADVAIR AND SPIRIVA, THIS MAY BE WHY SHE HAS SOME INSPIR ATORY WHEEZES. Code(s): J44.9 - Chronic obstructive pulmonary disease, unspecified Category: Medical Qualifiers: COPD type: emphysema Emphysema type: panlobular Qualified Code(s): J43.1 - Panlobular emphysema (8) Nicotine dependence, cigarettes, uncomplicated: Comment: (current smoker - onset 40yo , 1ppd x21yrs, now DOWN TO 3-4 cigarettes a day . Code(s): F17.210 - Nicotine dependence, cigarettes, uncomplicated Category: Medical Plan Details Patient is 64-year-old female with a history of schizophrenia lipid disorder, diabetes, obesity, chronic cigarette smoking, COPD, depression, hypothyroidism came in today with the staff member for follow-up, she was last seen July of last year did not come in after that for follow-up as staff member lost the appointment date Patient has severe COPD , using all her inhalers , at today's exam she has wheezing both lungs posteriorly She is seeing disease intervention specialist [facility] for the management Dr. Buckley and has appointment coming up Hypothyroidism:? continue levothyroxine 125 mcg TSH is stable Diabetes: Hemoglobin A1c is stable, patient is on pioglitazone 30 mg, metformin 1000 mg b.i.d., Due for labs She has lost 14 lb since July, her hemoglobin A1c is 5.4 today I am stopping the pioglitazone we will recheck hemoglobin again in 3 months Lipid disorder: Continue atorvastatin 40 mg daily She is also on a B12 supplement for low B12 levels. Psychiatric illness managed by psychiatry. Follow-up 3 months Orders: Orders Complete Blood Count Auto Diff Today E03.8 - Other specified hypothyroidism, E13.9 - Other specified diabetes mellitus without complications, E78.9 - Disorder of lipoprotein metabolism, unspecified TSH reflex Free T4 Today E03.8 - Other specified hypothyroidism, E13.9 - Other specified diabetes mellitus without complications, E78.9 - Disorder of lipoprotein metabolism, unspecified AMB Hemoglobin A1c Today Z13.9 - Encounter for screening, unspecified Comprehensive Met. Panel Today E03.8 - Other specified hypothyroidism, E13.9 - Other specified diabetes mellitus without complications, E78.9 - Disorder of lipoprotein metabolism, unspecified LDL Cholesterol Direct Today E03.8 - Other specified hypothyroidism, E13.9 - Other specified diabetes mellitus without complications, E78.9 - Disorder of lipoprotein metabolism, unspecified Medications: Discontinued pioglitazone Discontinued Reason: Doctor's Order 30 mg PO DAILY 90 days 90 tabs 3RF
[2025-06-05 09:33] VITALS: BP 112/62; PULSE 78; O2SAT 95; BMI 34.3
== END 2025-06-05 09:58 | disposition home or self-care (01) ==
LOC: HO.HMCC 09:32
PROVIDERS: PCP Internal Medicine; Visit Provider Internal Medicine
DX: E13.9 Other specified diabetes mellitus without complications (principal); F20.81 Schizophreniform disorder; E03.8 Other specified hypothyroidism; J43.1 Panlobular emphysema; E78.9 Disorder of lipoprotein metabolism, unspecified; E53.8 Deficiency of other specified B group vitamins; Z78.9 Other specified health status; F17.210 Nicotine dependence, cigarettes, uncomplicated

== ENCOUNTER 2025-06-05 09:31 | Outpatient (REF) | payer MEDICARE, MEDICAID, SELFPAY ==
[2025-06-05 13:30] LABS: MANUAL DIFF FLAG NO
[2025-06-05 13:46] LABS: Hematocrit 40.4 % (37.0-47.0); Hemoglobin 13.0 g/dl (12.0-16.0); Imm Gran Abs Auto 0.02 X10*3/uL (0.00-0.03); Imm Gran Pct Auto 0.6 % (0.0-0.4); Lymphocytes Absolute Auto 0.9 X10*3/uL (1.2-4.9); Mean Corpuscular HGB Conc 32.2 g/dl (31.0-35.0); Mean Corpuscular Hemoglobin 27.1 pg (27.0-33.0); Mean Corpuscular Volume 84.2 fL (80.0-98.0); NRBC Abs Auto 0.000 X10*3/uL (0.0-0.012); NRBC Pct Auto 0.0 /100WBC (0.0-0.2); Platelet Count 234 X10*3/uL (160-400); Red Blood Count 4.80 X10*6/uL (4.20-5.50); White Blood Count 3.5 X10*3/uL (4.8-10.8)
[2025-06-05 14:31] LABS: Alanine Aminotransferase 12 U/L (0-31); Albumin Level 4.5 g/dL (3.5-5.0); Alkaline Phosphatase 81 U/L (39-117); Anion Gap 12 (12-20); Aspartate Amino Transferase 18 U/L (5-31); Blood Urea Nitrogen 10 mg/dL (9-16); Calcium 9.8 mg/dL (8.4-10.2); Carbon Dioxide 29 mmol/L (22-29); Chloride 105 mmol/L (96-108); Estimated Glomerular Filt Rate > 60; Potassium 5.2 mmol/L (3.3-5.1); Sodium 141 mmol/L (135-145); Total Protein 7.2 g/dL (6.5-8.0)
== END 2025-06-05 09:32 | disposition home or self-care (01) ==
LOC: HO.HMGCLDS 09:31
PROVIDERS: PCP Internal Medicine; Visit Provider Internal Medicine
DX: E13.9 Other specified diabetes mellitus without complications (principal); E03.8 Other specified hypothyroidism; E78.9 Disorder of lipoprotein metabolism, unspecified; F20.81 Schizophreniform disorder; E53.8 Deficiency of other specified B group vitamins; J43.1 Panlobular emphysema; F17.210 Nicotine dependence, cigarettes, uncomplicated; Z78.9 Other specified health status; Z13.31 Encounter for screening for depression; Z13.39 Encounter for screening examination for other mental health and behavioral disorders
CPT/HCPCS: 36415; 80053; 83036; 83721; 84443; 85025; 96127; 99212

== ENCOUNTER 2025-06-12 13:55 | Outpatient (AMB) | payer MEDICARE, MEDICAID, SELFPAY ==
[2025-06-12 14:02] VITALS: BP 110/70; PULSE 76; O2SAT 94; BMI 33.9
--- NOTE | 2025-06-12 14:02 | MHC.OFFVIS ---
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: No Allergies Penicillins (PENICILLINS) Allergy (Intermediate, Verified 06/12/25 14:12) SKIN PEELS Medication List - Last Reconciled 06/12/25 by Crystal Buckley MD Advair Diskus 250-50 mcg/dose (fluticasone propion-salmeterol) 1 ea PO BID NS aspirin 325 mg PO DAILY atorvastatin 40 mg PO BEDTIME 90 days blood sugar diagnostic ([employer] Ultra Test strips) Check blood sugar daily and as needed for signs/symptoms of hypo/hyperglycemia bupropion HCl XL 150 mg PO QAM cyanocobalamin (vitamin B-12) mcg IM Q4W lancets ([employer] UltraSoft Lancets) Daily and as needed for hypo/hyperglycemia levothyroxine 125 mcg PO QAM 90 days metformin 1,000 mg PO BID syringe with needle, safety (BD SafetyGlide Syringe) As directed [Updraft machine As directed] Ventolin HFA 90 mcg/actuation (albuterol sulfate) 1 puff PO Q4H PRN NS Do you need a note to return to daycare/school/sports/work: No HPI HPI COPD: Details: Josefina, 64 years old, suffers from she is afraid apnea, has been nicotine dependence, and is being followed 5 bronchial as. Cigarettes are down to 2 a day, she is not using nicotine patches but she does use bupropion 150 mg daily in the morning. She is also on levothyroxine and her current TSH level is therapeutic . This may have helped to lose some weight. She has intermittent wheezing, and gets short of breath if she walks uphill . She has not been using the Advair regularly [facility] Medical History Pulmonary nodule Hypertensive retinopathy of both eyes Obesity Schizophrenia B12 deficiency Lipid disorder COPD (chronic obstructive pulmonary disease) Other specified hypothyroidism Diabetes 1.5, managed as type 2 Surgical History History of colonoscopy Family History Father No problems noted. Mother Diabetes mellitus Social History Household Members: None Housing: Apartment Do you presently have visiting nurse or other home services: Yes Patient Tobacco Use Status: Current everyday Tobacco user Tobacco use type: Cigarette and Cigar Cigarettes Per Day: 5 Years Smoked: (onset 40yo, 1ppd x 21yrs, now 1/2ppd - 20pyh) e-Cigarette/Vaping Use: Never Used Second Hand Smoke Exposure: No service: No Current occupational status: unemployed and retired Cognitive needs: No Hearing needs: No Vision needs: No Review of Systems Const All systems reviewed & are unremarkable except as noted in HPI and below Eyes Reports no additional complaints ENT Reports no additional complaints Card Denies chest pain, Denies irregular heart rhythm and Denies leg edema Resp Reports as per HPI GI Reports no additional complaints Reports no additional complaints Musc Reports no additional complaints Skin/Breast Reports system reviewed and no additional complaints, except as documented Neuro Reports no additional complaints Psych Reports anxiety and Reports mood swings Endo Reports other (Diabetes mellitus, hypothyroidism being treated) Physical Exam Vital Signs: Last Vital Signs Pulse 76 06/12/25 14:02 BP 110/70 06/12/25 14:02 Pulse Ox 94 06/12/25 14:02 Oxygen Delivery Method Room Air 06/12/25 14:02 BMI result Body Mass Index 33.9 Const General: comfortable, no acute distress, alert and awake Orientation/consciousness: patient oriented x3 HEENT Head: Yes normal to inspection General nose exam: No nasal polyps present and No nasal discharge present Face and sinus: Yes sinuses nontender Mouth: oropharynx abnormals (OROPHARYNX IS CROWDED, MALLAMPATI CLASS 4) Throat: Yes posterior oropharynx normal Eyes General: appearance normal, both eyes and all related structures Neck Neck: Yes normal visual inspection, Yes no lymphadenopathy, Yes trachea midline, Yes no JVD and Yes other (NECK CIRCUMFERENCE 17 IN) Thyroid: Thyroid normal Chest Chest palpation & inspection: normal inspection of the chest, normal palpation of entire chest wall and no tenderness Resp Other: PERCUSSION NOTE IS RESONANT, BREATH SOUNDS ARE DISTANT WITH PROLONGED EXPIRATORY PHASE. SHE DOES HAVE A FEW INSPIRATORY WHEEZES, PRESENT IN THE UPPER PARTS OF THE CHEST. Cardio Palpation: normal PMI Rate: regular rate Rhythm: regular rhythm Heart sounds: no gallops and no murmurs GI Palpation (GI): Soft to palpation, nontender, No hepatosplenomegaly present and no masses Auscultation: normal bowel sounds Back/Spine/Pelvis Thoracic/Lumbar Spine: thoracic and lumbar spine normal to inspection and thoraco-lumbar ROM limited Skin General skin exam: no rashes or lesions noted Neuro General: patient oriented x3 and no focal motor deficits Cranial nerves: Yes CN's II-XII intact bilaterally Extrem General: Yes normal to inspection, Yes no clubbing, cyanosis or edema and Yes no calf tenderness Psych Appearance: grossly normal, well kempt and other (NOT TOO CONCERNED ABOUT HER MEDICAL ISSUES) Speech and movement: Normal speech and movement present Assessment & Plan Assessment & Plan (1) COPD (chronic obstructive pulmonary disease): Comment: PATIENT DOES HAVE MODERATELY SEVERE OBSTRUCTIVE PULMONARY DISORDER. EXPLAINED TO THE PATIENT . SHE HAS INTERMITTENT COUGH AND SOME WHEEZING SHE HAS NOT BEEN USING ADVAIR, ONLY USES ALBUTEROL NEEDED. AND SHE IS HAVING INTERMITTENT WHEEZING. Code(s): J44.9 - Chronic obstructive pulmonary disease, unspecified Category: Medical Qualifiers: COPD type: emphysema Emphysema type: panlobular Qualified Code(s): J43.1 - Panlobular emphysema Plan: ADVISED TO RESTART USING ADVAIR 250-51 INHALATION B.I.D.. AND USE VENTOLIN 2 PUFFS Q 6 HOURS P.R.N. (2) Nicotine dependence, cigarettes, uncomplicated: Comment: (current smoker - onset 40yo , 1ppd x21yrs, now DOWN TO 2 cigarettes a day . Code(s): F17.210 - Nicotine dependence, cigarettes, uncomplicated Category: Medical Plan: COMMENDED FOR CUTTING DOWN THE AMOUNT OF SMOKING. ENCOURAGED TO QUIT COMPLETELY (3) Pulmonary nodule: Comment: This patient HAD 1 pulmonary nodule 8x1.2 mm in size. But the last CT scan of the lung on 03/07/2024 did not show any significant nodular densities. Code(s): R91.1 - Solitary pulmonary nodule Category: Medical Plan: ENCOURAGED TO CONTINUE HAVING ANNUAL LUNG SCREENING WITH LD CT. Medications: New fluticasone propion-salmeterol 250-50 mcg/dose (Advair Diskus) 1 inh inhalation BID 60 ea 5RF COPD 30 days Coding Level of Care Code Est Pt Level 3 (24960) Diagnoses Panlobular emphysema J43.1 COPD type: emphysema Emphysema type: panlobular Nicotine dependence, cigarettes, uncomplicated F17.210 Pulmonary nodule R91.1
== END 2025-06-12 14:19 | disposition home or self-care (01) ==
LOC: HO.HPS 13:56
PROVIDERS: PCP Internal Medicine; Visit Provider Internal Medicine
DX: J43.1 Panlobular emphysema (principal); F17.210 Nicotine dependence, cigarettes, uncomplicated; R91.1 Solitary pulmonary nodule
CPT/HCPCS: 99213

== ENCOUNTER → 2025-06-12 13:55 | Outpatient (BNVA) | payer MEDICARE, MEDICAID, SELFPAY | PROVIDERS: PCP Internal Medicine; Visit Provider Internal Medicine | DX: J43.1 Panlobular emphysema (principal); R91.1 Solitary pulmonary nodule; F17.210 Nicotine dependence, cigarettes, uncomplicated | CPT/HCPCS: 99212 ==

== ENCOUNTER → 2025-07-02 23:59 | Outpatient (BNV) | payer MEDICARE, MEDICAID, SELFPAY | PROVIDERS: PCP Internal Medicine; Visit Provider Internal Medicine | DX: E11.9 Type 2 diabetes mellitus without complications (principal); J44.9 Chronic obstructive pulmonary disease, unspecified; D51.9 Vitamin B12 deficiency anemia, unspecified | CPT/HCPCS: G0179 ==

== ENCOUNTER → 2025-08-21 23:59 | Outpatient (BNV) | payer MEDICARE, MEDICAID, SELFPAY | PROVIDERS: PCP Internal Medicine; Visit Provider Internal Medicine | DX: J44.9 Chronic obstructive pulmonary disease, unspecified (principal); F20.89 Other schizophrenia; D51.9 Vitamin B12 deficiency anemia, unspecified | CPT/HCPCS: G0179 ==

== ENCOUNTER 2025-09-18 09:25 | Outpatient (AMB) | payer MEDICARE, MEDICAID, SELFPAY ==
[2025-09-18 09:27] VITALS: BP 110/72; PULSE 73; O2SAT 98; BMI 36.4
--- NOTE | 2025-09-18 09:27 | MHC.PC.OV ---
Vital Signs 09/18/25 09:27 Height 5 ft 4 in Weight 212 lb BMI 36.4 BP 110/72 Blood Pressure Location Rt brachial Position Sitting Pulse 73 Pulse Source Pulse Oximeter Pulse Oximetry (%) 98 Intake Visit Reasons: 4m f/u Allergies Penicillins (PENICILLINS) Allergy (Intermediate, Verified 09/18/25 09:27) SKIN PEELS Medication List - Last Reconciled 09/18/25 by Tung Dowling MD Advair Diskus 250-50 mcg/dose (fluticasone propion-salmeterol) 1 ea PO BID NS albuterol sulfate 90 mcg/actuation 1 puff PO Q4H PRN aspirin 325 mg PO DAILY atorvastatin 40 mg PO BEDTIME 90 days blood sugar diagnostic ([employer] Ultra Test strips) Check blood sugar daily and as needed for signs/symptoms of hypo/hyperglycemia bupropion HCl XL 150 mg PO QAM cyanocobalamin (vitamin B-12) 1,000 mcg IM Q4W 90 days fluticasone propion-salmeterol 250-50 mcg/dose (Advair Diskus) 1 inh inhalation BID 30 days lancets ([place] UltraSoft Lancets) Daily and as needed for hypo/hyperglycemia levothyroxine 125 mcg PO QAM 90 days metformin 1,000 mg PO BID risperidone 2 mg PO BID risperidone 0.5 mg PO BID syringe with needle, safety (BD SafetyGlide Syringe) As directed [Updraft machine As directed] Tobacco use date assessed: 06/05/25 Dental Screening Dental Screen Date: 06/05/25 HPI 4m f/u HPI Details History of Present Illness The patient is a 64-year-old female presenting for a regular follow-up appointment for chronic disease management. Chronic Obstructive Pulmonary Disease: - The patient is managed by a child welfare specialist for COPD and is prescribed Advair. - According to her caregiver, her breathing is not well, which is attributed to her smoking. - She has reportedly used an entire albuterol rescue inhaler in less than a month, in addition to her daily maintenance inhaler. - She has an upcoming appointment with her sas analyst in November. Hyperlipidemia: - The patient is taking atorvastatin 40 mg. Hypothyroidism: - The patient is taking levothyroxine 125 mcg. - Thyroid function was within limits on labs from May. Type 2 Diabetes Mellitus: - The patient is taking metformin 1 gram twice daily. Hyperkalemia: - Laboratory tests from May showed a slightly elevated potassium level of 5.2. Tobacco Use: - The patient's smoking is a concern and is believed to be worsening her breathing. Medical History: - Chronic Obstructive Pulmonary Disease - Hypothyroidism - Diabetes Mellitus - Hyperlipidemia - Psychiatric condition, under the care of a psychiatrist - History of slightly elevated potassium in May Medications: - Atorvastatin 40 mg - Levothyroxine 125 mcg - Metformin 1 g BID - Advair for COPD - Albuterol inhaler PRN - psychiatric medications Social History: - The patient lives in a senior living. - The patient actively smokes, which is worsening her respiratory symptoms. Problem List - Chronic Obstructive Pulmonary Disease - Hypothyroidism - Type 2 Diabetes Mellitus - Hyperlipidemia - Tobacco use - Hyperkalemia - Preventative care: Influenza vaccination, medicare sales representative will check with senior living Plan - Prescribed a 5-day course of prednisone 5 mg to address current wheezing, with caution due to its potential to increase blood sugar. - Sent refills for the patient's inhalers. - The patient will follow up with her sas analyst, Dr. Buckley, in November for ongoing management of her COPD and inhaler prescriptions. - Ordered blood tests to be completed before her next visit. - The patient will return for a follow-up physical on November 13. - Plan to administer the flu vaccine at the October visit. Review of Systems - General: No fever no chills - Neurological: No headaches no dizziness - Ear nose throat: No sore throat no hearing difficulty no ear pain - Cardiovascular: No syncope, no chest pain, no palpitations - Gastrointestinal: No nausea vomiting or diarrhea - Endocrine: No polyuria polydipsia no heat intolerance - Genitourinary: No dysuria , no blood in urine Physical Exam General: No acute distress HEENT: No acute findings Neck: Supple Respiratory system: Wheezing present but no resp distress Cardiovascular: S1-S2 regular in rate and rhythm Gastrointestinal: No pain Extremities: No new findings PIT LABORER: Alert awake oriented x3 motor intact Skin: Normal turgor PFSH Medical History Pulmonary nodule Hypertensive retinopathy of both eyes Obesity Schizophrenia B12 deficiency Lipid disorder COPD (chronic obstructive pulmonary disease) Other specified hypothyroidism Diabetes 1.5, managed as type 2 Surgical History History of colonoscopy Family History Father No problems noted. Mother Diabetes mellitus Social History Household Members: None Housing: Apartment Do you presently have visiting nurse or other home services: Yes Patient Tobacco Use Status: Current everyday Tobacco user Tobacco use type: Cigarette and Cigar Cigarettes Per Day: 5 Years Smoked: (onset 40yo, 1ppd x 21yrs, now 1/2ppd - 20pyh) Packs per year/per ci.00 e-Cigarette/Vaping Use: Never Used Second Hand Smoke Exposure: No service: No Current occupational status: unemployed and retired Cognitive needs: No Hearing needs: No Vision needs: No Questionnaire Thrive Questionnaire Date Thrive assessed: 06/05/25 SEEMA-7 AMB Questionnaire SEEMA-7 Date SEEMA - 7 assessed: 06/05/25 Source: Developed by Drs. Suhail Duvall, Laila Sprague, Miguelangel Ruano and colleagues, with an educational suzanna from [employer]. Physical exam (Primary Care) Vital Signs: Last Vital Signs Pulse 73 09/18/25 09:27 BP 110/72 09/18/25 09:27 Pulse Ox 98 09/18/25 09:27 BMI result Body Mass Index 36.4 Tobacco/Smoking Status: Tobacco use Status Tobacco use date assessed 06/05/25 09/18/25 09:28 Patient Tobacco Use Status Current everyday Tobacco 09/18/25 09:28 Tobacco use type Cigarette,Cigar 09/18/25 09:28 e-Cigarette/Vaping Use Never Used 09/18/25 09:28 Thrive Assessment: Date of Thrive Assessment Date Thrive assessed 06/05/25 09/18/25 09:28 Coding Level of Care Code Est Pt Level 4 (98634) Complex EM visit Add On G2211 Diagnoses COPD exacerbation J44.1 Diabetes 1.5, managed as type 2 E13.9 Lipid disorder E78.9 Other specified hypothyroidism E03.8 B12 deficiency E53.8 Class 2 severe obesity due to excess calories with serious comorbidity and body mass index (BMI) of 38.0 to 38.9 in adult E66.01; Z68.38 Body mass index: BMI 38.0-38.9 Obesity classification: adult class 2 (BMI 35 - 39.9) Obesity type: due to excess calories Serious obesity comorbidity presence: with serious comorbidity 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 Nicotine dependence, cigarettes, uncomplicated F17.210 Assessment & Plan Assessment & Plan (1) COPD exacerbation: Code(s): J44.1 - Chronic obstructive pulmonary disease with (acute) exacerbation Category: Medical (2) Diabetes 1.5, managed as type 2: Code(s): E13.9 - Other specified diabetes mellitus without complications Category: Medical (3) Lipid disorder: Code(s): E78.9 - Disorder of lipoprotein metabolism, unspecified Category: Medical (4) Other specified hypothyroidism: Code(s): E03.8 - Other specified hypothyroidism Category: Medical (5) B12 deficiency: Code(s): E53.8 - Deficiency of other specified B group vitamins Category: Medical (6) Obesity: Comment: She is grossly obese, not in any shape to lose weight. Denies symptoms of sleep apnea. Code(s): E66.9 - Obesity, unspecified Category: Medical Qualifiers: Body mass index: BMI 38.0-38.9 Obesity classification: adult class 2 (BMI 35 - 39.9) Obesity type: due to excess calories Serious obesity comorbidity presence: with serious comorbidity Qualified Code(s): E66.01 - Morbid (severe) obesity due to excess calories; Z68.38 - Body mass index [BMI] 38.0-38.9, adult (7) Schizophrenia: Comment: Patient is on appropriate anti psychotic meds. Code(s): F20.9 - Schizophrenia, unspecified Category: Medical Qualifiers: Schizophrenia type: schizophreniform disorder Qualified Code(s): F20.81 - Schizophreniform disorder (8) Nicotine dependence, cigarettes, uncomplicated: Comment: (current smoker - onset 40yo , 1ppd x21yrs, now DOWN TO 2 cigarettes a day . Code(s): F17.210 - Nicotine dependence, cigarettes, uncomplicated Category: Medical Plan . Chronic Obstructive Pulmonary Disease: - The patient is managed by a child welfare specialist for COPD and is prescribed Advair. - According to her caregiver, her breathing is not well, which is attributed to her smoking. - She has reportedly used an entire albuterol rescue inhaler in less than a month, in addition to her daily maintenance inhaler. - She has an upcoming appointment with her sas analyst in November. Hyperlipidemia: - The patient is taking atorvastatin 40 mg. Hypothyroidism: - The patient is taking levothyroxine 125 mcg. - Thyroid function was within limits on labs from May. Type 2 Diabetes Mellitus: - The patient is taking metformin 1 gram twice daily. Hyperkalemia: - Laboratory tests from May showed a slightly elevated potassium level of 5.2. Tobacco Use: - The patient's smoking is a concern and is believed to be worsening her breathing. Medical History: - Chronic Obstructive Pulmonary Disease - Hypothyroidism - Diabetes Mellitus - Hyperlipidemia - Psychiatric condition, under the care of a psychiatrist - History of slightly elevated potassium in May Medications: - Atorvastatin 40 mg - Levothyroxine 125 mcg - Metformin 1 g BID - Advair for COPD - Albuterol inhaler PRN - psychiatric medications Social History: - The patient lives in a senior living. - The patient actively smokes, which is worsening her respiratory symptoms. Problem List - Chronic Obstructive Pulmonary Disease - Hypothyroidism - Type 2 Diabetes Mellitus - Hyperlipidemia - Tobacco use - Hyperkalemia - Preventative care: Influenza vaccination, medicare sales representative will check with senior living Plan - Prescribed a 5-day course of prednisone 5 mg to address current wheezing, with caution due to its potential to increase blood sugar. - Sent refills for the patient's inhalers. - The patient will follow up with her sas analyst, Dr. Buckley, in November for ongoing management of her COPD and inhaler prescriptions. - Ordered blood tests to be completed before her next visit. - The patient will return for a follow-up physical on November 13. - Plan to administer the flu vaccine at the October visit. Orders: Orders Hemoglobin A1c Today E03.8 - Other specified hypothyroidism, E13.9 - Other specified diabetes mellitus without complications, E53.8 - Deficiency of other specified B group vitamins, E66.01 - Morbid (severe) obesity due to excess calories, E78.9 - Disorder of lipoprotein metabolism, unspecified, F17.210 - Nicotine dependence, cigarettes, uncomplicated, F20.81 - Schizophreniform disorder, J44.1 - Chronic obstructive pulmonary disease with (acute) exacerbation, Z68.38 - Body mass index [BMI] 38.0-38.9, adult Complete Blood Count Auto Diff Today E03.8 - Other specified hypothyroidism, E13.9 - Other specified diabetes mellitus without complications, E53.8 - Deficiency of other specified B group vitamins, E66.01 - Morbid (severe) obesity due to excess calories, E78.9 - Disorder of lipoprotein metabolism, unspecified, F17.210 - Nicotine dependence, cigarettes, uncomplicated, F20.81 - Schizophreniform disorder, J44.1 - Chronic obstructive pulmonary disease with (acute) exacerbation, Z68.38 - Body mass index [BMI] 38.0-38.9, adult Comprehensive Met. Panel Today E03.8 - Other specified hypothyroidism, E13.9 - Other specified diabetes mellitus without complications, E53.8 - Deficiency of other specified B group vitamins, E66.01 - Morbid (severe) obesity due to excess calories, E78.9 - Disorder of lipoprotein metabolism, unspecified, F17.210 - Nicotine dependence, cigarettes, uncomplicated, F20.81 - Schizophreniform disorder, J44.1 - Chronic obstructive pulmonary disease with (acute) exacerbation, Z68.38 - Body mass index [BMI] 38.0-38.9, adult LDL Cholesterol Direct Today E03.8 - Other specified hypothyroidism, E13.9 - Other specified diabetes mellitus without complications, E53.8 - Deficiency of other specified B group vitamins, E66.01 - Morbid (severe) obesity due to excess calories, E78.9 - Disorder of lipoprotein metabolism, unspecified, F17.210 - Nicotine dependence, cigarettes, uncomplicated, F20.81 - Schizophreniform disorder, J44.1 - Chronic obstructive pulmonary disease with (acute) exacerbation, Z68.38 - Body mass index [BMI] 38.0-38.9, adult Vitamin D 25-OH (D2 and D3) Today E03.8 - Other specified hypothyroidism, E13.9 - Other specified diabetes mellitus without complications, E53.8 - Deficiency of other specified B group vitamins, E66.01 - Morbid (severe) obesity due to excess calories, E78.9 - Disorder of lipoprotein metabolism, unspecified, F17.210 - Nicotine dependence, cigarettes, uncomplicated, F20.81 - Schizophreniform disorder, J44.1 - Chronic obstructive pulmonary disease with (acute) exacerbation, Z68.38 - Body mass index [BMI] 38.0-38.9, adult Vitamin B12 Today E03.8 - Other specified hypothyroidism, E13.9 - Other specified diabetes mellitus without complications, E53.8 - Deficiency of other specified B group vitamins, E66.01 - Morbid (severe) obesity due to excess calories, E78.9 - Disorder of lipoprotein metabolism, unspecified, F17.210 - Nicotine dependence, cigarettes, uncomplicated, F20.81 - Schizophreniform disorder, J44.1 - Chronic obstructive pulmonary disease with (acute) exacerbation, Z68.38 - Body mass index [BMI] 38.0-38.9, adult Microalbumin, Random (w Creat) Today E03.8 - Other specified hypothyroidism, E13.9 - Other specified diabetes mellitus without complications, E53.8 - Deficiency of other specified B group vitamins, E66.01 - Morbid (severe) obesity due to excess calories, E78.9 - Disorder of lipoprotein metabolism, unspecified, F17.210 - Nicotine dependence, cigarettes, uncomplicated, F20.81 - Schizophreniform disorder, J44.1 - Chronic obstructive pulmonary disease with (acute) exacerbation, Z68.38 - Body mass index [BMI] 38.0-38.9, adult TSH reflex Free T4 Today E03.8 - Other specified hypothyroidism, E13.9 - Other specified diabetes mellitus without complications, E53.8 - Deficiency of other specified B group vitamins, E66.01 - Morbid (severe) obesity due to excess calories, E78.9 - Disorder of lipoprotein metabolism, unspecified, F17.210 - Nicotine dependence, cigarettes, uncomplicated, F20.81 - Schizophreniform disorder, J44.1 - Chronic obstructive pulmonary disease with (acute) exacerbation, Z68.38 - Body mass index [BMI] 38.0-38.9, adult Medications: New prednisone 5 mg PO DAILY 5 tabs 0RF 5 days Refilled fluticasone propion-salmeterol 250-50 mcg/dose (Advair Diskus) 1 inh inhalation BID 60 ea 0RF COPD 30 days albuterol sulfate 90 mcg/actuation 1 puff PO Q4H PRN 18 ea 0RF for muscle spasm
== END 2025-09-18 09:54 | disposition home or self-care (01) ==
LOC: HO.HMCC 09:25
PROVIDERS: PCP Internal Medicine; Visit Provider Internal Medicine
DX: J44.1 Chronic obstructive pulmonary disease with (acute) exacerbation (principal); E13.9 Other specified diabetes mellitus without complications; E66.01 Morbid (severe) obesity due to excess calories; Z68.38 Body mass index [BMI] 38.0-38.9, adult; F20.81 Schizophreniform disorder; E78.9 Disorder of lipoprotein metabolism, unspecified; E03.8 Other specified hypothyroidism; E53.8 Deficiency of other specified B group vitamins; F17.210 Nicotine dependence, cigarettes, uncomplicated

== ENCOUNTER → 2025-09-18 09:25 | Outpatient (BNVA) | payer MEDICARE, MEDICAID, SELFPAY | PROVIDERS: PCP Internal Medicine; Visit Provider Internal Medicine | DX: E78.9 Disorder of lipoprotein metabolism, unspecified (principal); E13.9 Other specified diabetes mellitus without complications; E03.8 Other specified hypothyroidism; J44.1 Chronic obstructive pulmonary disease with (acute) exacerbation; E53.8 Deficiency of other specified B group vitamins; E66.01 Morbid (severe) obesity due to excess calories; Z68.38 Body mass index [BMI] 38.0-38.9, adult; Z71.3 Dietary counseling and surveillance; F20.81 Schizophreniform disorder; F17.210 Nicotine dependence, cigarettes, uncomplicated; Z71.6 Tobacco abuse counseling | CPT/HCPCS: 99212 ==

== ENCOUNTER 2025-11-13 10:06 | Outpatient (AMB) | payer MEDICARE, MEDICAID, SELFPAY ==
[2025-11-13 10:17] VITALS: BP 132/84; PULSE 68; O2SAT 95; BMI 36.5
--- NOTE | 2025-11-13 10:17 | MHC.PC.OV ---
Vital Signs 11/13/25 10:17 Height 5 ft 4 in Weight 212 lb 6 oz BMI 36.5 BP 132/84 Blood Pressure Location Rt brachial Position Sitting Pulse 68 Pulse Source Pulse Oximeter Pulse Oximetry (%) 95 Oxygen Delivery Method Room Air Intake Visit Reasons: Annual PE Allergies Penicillins (PENICILLINS) Allergy (Intermediate, Verified 11/13/25 10:21) SKIN PEELS Medication List - Last Reconciled 11/13/25 by Tung Dowling MD Advair Diskus 250-50 mcg/dose (fluticasone propion-salmeterol) 1 ea PO BID NS albuterol sulfate 90 mcg/actuation 1 puff PO Q4H PRN aspirin 325 mg PO DAILY atorvastatin 40 mg PO BEDTIME 90 days blood sugar diagnostic ([employer] Ultra Test strips) Check blood sugar daily and as needed for signs/symptoms of hypo/hyperglycemia cyanocobalamin (vitamin B-12) 1,000 mcg IM Q4W 90 days fluticasone propion-salmeterol 250-50 mcg/dose (Advair Diskus) 1 inh inhalation BID 30 days lancets ([employer] UltraSoft Lancets) Daily and as needed for hypo/hyperglycemia levothyroxine 125 mcg PO QAM 90 days metformin 1,000 mg PO BID risperidone 2 mg PO BID risperidone 0.5 mg PO BID syringe with needle, safety (BD SafetyGlide Syringe) As directed [FireBladeraft machine As directed] Tobacco use date assessed: 11/13/25 Fall risk assessment: No Falls in past year Last assessed Fall Risk: 11/13/25 Dental Screening Dental Screen Date: 11/13/25 Did you have a dental visit in the last 12 months?: No Did you have a dental problem in the last 6 months where you did not have access to dental care?: No Was dental information given to patient?: Patient declined HPI HPI Comments History of Present Illness Details History of Present Illness The patient is a 65 year old female presenting for a physical exam. Chronic Obstructive Pulmonary Disease: - The patient has a history of COPD due to smoking. - She has reduced her smoking but has not quit. - She sees a lung specialist, Dr. Buckley, for management. Hypothyroidism: - The patient has hypothyroidism managed with levothyroxine 125 mcg daily. Type 2 Diabetes Mellitus: - The patient manages her diabetes with metformin 1 gram twice a day. - Her recent HbA1c level was 5.8. Hyperlipidemia: - The patient is taking atorvastatin 40 mg for lipid control. Schizophrenia: - The patient has a diagnosis of schizophrenia and sees a psychiatrist for management. - She is taking risperidone for this condition. History of tubular adenoma of colon: - She had a colonoscopy last year that revealed a tubular adenoma, diverticulosis, and hemorrhoids. - A repeat colonoscopy is due next year. Medical History: - Chronic Obstructive Pulmonary Disease secondary to smoking - Hypothyroidism - Type 2 Diabetes Mellitus - Hyperlipidemia - Schizophrenia - Diverticulosis, found on colonoscopy last year - Hemorrhoids, found on colonoscopy last year - History of tubular adenoma of the colon, found on colonoscopy last year Social History: - The patient lives in a penitentiary with assistance from [facility]. - Smoking: She has a history of smoking and has reduced her use but has not quit completely. - The patient has a visiting nurse. - The patient typically does not wear a bra. Health Maintenance - The patient's last blood tests were in May of this year and she is due for new labs. - An order for blood tests was placed in September, but she has not had them done yet. - Her last mammogram was in June of last year, and she is due for a new one. - Her last colonoscopy was last year, which revealed diverticulosis, hemorrhoids, and a tubular adenoma. - A repeat colonoscopy is due next year. - The patient last saw a shoer in February of last year. Dixon of Care - The patient resides in a penitentiary and receives support from [facility]. - She sees a psychiatrist for management of schizophrenia. - She is followed by a lung specialist, Dr. Buckley. - She received care from a kiln pusher last year for a colonoscopy. - A visiting nurse is involved in her care. Medications - Atorvastatin 40 mg for hyperlipidemia - Vitamin B12 intramuscular injections - Levothyroxine 125 mcg for hypothyroidism - Metformin 1 g twice a day for diabetes mellitus - Risperidone for schizophrenia - Aspirin PFSH Medical History Pulmonary nodule Hypertensive retinopathy of both eyes Obesity Schizophrenia B12 deficiency Lipid disorder COPD (chronic obstructive pulmonary disease) Other specified hypothyroidism Diabetes 1.5, managed as type 2 Surgical History History of colonoscopy Family History Father No problems noted. Mother Diabetes mellitus Social History Household Members: None Housing: Apartment Do you presently have visiting nurse or other home services: Yes Patient Tobacco Use Status: Current everyday Tobacco user Tobacco use type: Cigarette and Cigar Cigarettes Per Day: 5 Years Smoked: (onset 40yo, 1ppd x 21yrs, now 1/2ppd - 20pyh) e-Cigarette/Vaping Use: Never Used Second Hand Smoke Exposure: No service: No Current occupational status: unemployed and retired Cognitive needs: No Hearing needs: No Vision needs: No Questionnaire Thrive Questionnaire Date Thrive assessed: 06/05/25 I am a: Patient What is your living situation today?: I have a steady place to live Within the past 12 months, did the food you bought not last and you didn't have the money to get more?: Often true Within the past 12 months, did you worry whether your food would run out before you got money to buy more?: Sometimes True Do you have trouble paying for medicines?: No Do you have trouble getting transportation to medical appointments?: No Do you have trouble paying your heating and electricity bill?: No Do you have trouble taking care of your child, family member or friend?: No Do you have trouble with day-to-day activities such as bathing, preparing meals, shopping, managing finances, etc.?: No Are you currently unemployed and looking for a job?: No Are you interested in more education?: No Currently or been in a relationship where the following occur: I choose not to answer THRIVE Score: 2 AUDIT C Alcohol Use Questionnaire (AUDIT-C) 1. How often do you have a drink containing alcohol?: Never 3. How often do you have six or more drinks on one occasion?: Never Total Score: 0 Score Reviewed/Action Taken: Yes SEEMA-7 AMB Questionnaire SEEMA-7 Date SEEMA - 7 assessed: 06/05/25 Source: Developed by Drs. Suhail Duvall, Laila Sprague, Miguelangel Ruano and colleagues, with an educational suzanna from [employer]. Review of Systems Narrative Review of Systems - General: No fever no chills - Neurological: No headaches no dizziness - Ear nose throat: No sore throat no hearing difficulty no ear pain - Cardiovascular: No syncope, no chest pain, no palpitations - Gastrointestinal: No nausea vomiting or diarrhea - Endocrine: No polyuria polydipsia no heat intolerance - Genitourinary: No dysuria - Skin: No new complaints Physical exam (Primary Care) Vital Signs: Last Vital Signs Pulse 68 11/13/25 10:17 BP 132/84 11/13/25 10:17 Pulse Ox 95 11/13/25 10:17 Oxygen Delivery Method Room Air 11/13/25 10:17 BMI result Body Mass Index 36.5 Tobacco/Smoking Status: Tobacco use Status Tobacco use date assessed 11/13/25 11/13/25 10:25 Patient Tobacco Use Status Current everyday Tobacco 11/13/25 10:23 Tobacco use type Cigarette,Cigar 11/13/25 10:23 e-Cigarette/Vaping Use Never Used 11/13/25 10:23 Thrive Assessment: Date of Thrive Assessment Date Thrive assessed 06/05/25 11/13/25 10:23 Currently or been in a relationship where the following occur: I choose not to answer Narrative Diagnostic results - Labs: HbA1c is 5.8. - Diagnostics: A colonoscopy performed last year showed diverticulosis, hemorrhoids, and a tubular adenoma. Physical Exam General: Cooperative, healthy appearing, comfortable, no acute distress Orientation: Patient oriented x3 Head: Normal to inspection Ears: Within normal limit visually Nose: Normal external nose present Face and sinus: Normal facial exam Eyes: Appearance normal, extraocular movement intact pupils reactive Neck: Normal visual inspection and supple Respiratory: Normal respiratory effort and able to speak in complete sentences. Clear to auscultation, no stridor Cardiovascular: S1 and S2 RRR Breast exam no lumps but has rash under breasts GI: Normal to inspection. Soft to palpation and nontender Skin: Turgor normal, rash present under the breast Neuro: Patient oriented x3, motor balance intact Extremities: Normal to inspection, no swelling . Results AMB Hemoglobin A1c AMB Hemoglobin A1c 5.8 % Last Edit by Mejia Sun CMA on 11/13/25 10:33 Results Reviewed Results Reviewed: Laboratory Last Values Hgb A1c (Clinic) 5.8 % (4.0-6.0) 11/13/25 10:32 Coding Level of Care Code Est Pt Level 3 (41754) Est Pt Prev Care >65y(13600) Diagnoses Encounter for general adult medical examination with abnormal findings Z00.01 Diabetes 1.5, managed as type 2 E13.9 Panlobular emphysema J43.1 COPD type: emphysema Emphysema type: panlobular Lipid disorder E78.9 Other specified hypothyroidism E03.8 B12 deficiency E53.8 Class 2 severe obesity due to excess calories with serious comorbidity and body mass index (BMI) of 38.0 to 38.9 in adult E66.01; Z68.38 Obesity type: due to excess calories Obesity classification: adult class 2 (BMI 35 - 39.9) Serious obesity comorbidity presence: with serious comorbidity Body mass index: BMI 38.0-38.9 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 EXPLAINED TO THE PATIENT . SHE HAS INTERMITTENT COUGH AND SOME WHEEZING SHE HAS NOT BEEN USING ADVAIR, ONLY USES ALBUTEROL NEEDED. AND SHE IS HAVING INTERMITTENT WHEEZING. Code(s): J44.9 - Chronic obstructive pulmonary disease, unspecified Category: Medical Qualifiers: COPD type: emphysema Emphysema type: panlobular Qualified Code(s): J43.1 - Panlobular emphysema (4) Lipid disorder: Code(s): E78.9 - Disorder of lipoprotein metabolism, unspecified Category: Medical (5) Other specified hypothyroidism: Code(s): E03.8 - Other specified hypothyroidism Category: Medical (6) B12 deficiency: Code(s): E53.8 - Deficiency of other specified B group vitamins Category: Medical (7) Obesity: Comment: She is grossly obese, not in any shape to lose weight. Denies symptoms of sleep apnea. Code(s): E66.9 - Obesity, unspecified Category: Medical Qualifiers: Obesity type: due to excess calories Obesity classification: adult class 2 (BMI 35 - 39.9) Serious obesity comorbidity presence: with serious comorbidity Body mass index: BMI 38.0-38.9 Qualified Code(s): E66.01 - Morbid (severe) obesity due to excess calories; Z68.38 - Body mass index [BMI] 38.0-38.9, adult (8) Schizophrenia: Comment: Patient is on appropriate anti psychotic meds. Code(s): F20.9 - Schizophrenia, unspecified Category: Medical Qualifiers: Schizophrenia type: schizophreniform disorder Qualified Code(s): F20.81 - Schizophreniform disorder (9) Nicotine dependence, cigarettes, uncomplicated: Comment: (current smoker - onset 40yo , 1ppd x21yrs, now DOWN TO 2 cigarettes a day . Code(s): F17.210 - Nicotine dependence, cigarettes, uncomplicated Category: Medical Plan Patient Instructions - Need blood test today. - We will place an order for your mammogram. Please make sure to get it done this year. - For the rash under your breast, sprinkle the nystatin powder on the area at night before you go to sleep. - Your dose of metformin for diabetes will be lowered to once a day. - You have two follow-up appointments scheduled: one in February for a regular follow-up and one in a year for your next physical exam. Orders: Orders AMB Hemoglobin A1c Today Z13.9 - Encounter for screening, unspecified MM tomosynthesis screening BI Today Z12.31 - Encounter for screening mammogram for malignant neoplasm of breast Medications: New metformin 1,000 mg PO .q am 90 tabs 1RF 90 days nystatin 1 appl topical DAILY 60 grams 2RF 30 days B35.4 - Tinea corporis Discontinued metformin Discontinued Reason: Doctor's Order 1,000 mg PO BID 180 tabs 2RF
== END 2025-11-13 10:38 | disposition home or self-care (01) ==
LOC: HO.HMCC 10:06
PROVIDERS: PCP Internal Medicine; Visit Provider Internal Medicine
DX: Z00.01 Encounter for general adult medical examination with abnormal findings (principal); E13.9 Other specified diabetes mellitus without complications; J43.1 Panlobular emphysema; E78.9 Disorder of lipoprotein metabolism, unspecified; E03.8 Other specified hypothyroidism; E53.8 Deficiency of other specified B group vitamins

== ENCOUNTER 2025-11-13 10:06 | Outpatient (REF) | payer MEDICARE, MEDICAID, SELFPAY ==
[2025-11-13 13:48] LABS: MANUAL DIFF FLAG NO
[2025-11-13 13:57] LABS: Hematocrit 38.1 % (37.0-47.0); Hemoglobin 12.3 g/dl (12.0-16.0); Imm Gran Abs Auto 0.01 X10*3/uL (0.00-0.03); Imm Gran Pct Auto 0.3 % (0.0-0.4); Lymphocytes Absolute Auto 0.9 X10*3/uL (1.2-4.9); Mean Corpuscular HGB Conc 32.3 g/dl (31.0-35.0); Mean Corpuscular Hemoglobin 26.9 pg (27.0-33.0); Mean Corpuscular Volume 83.2 fL (80.0-98.0); NRBC Abs Auto 0.000 X10*3/uL (0.0-0.012); NRBC Pct Auto 0.0 /100WBC (0.0-0.2); Platelet Count 242 X10*3/uL (160-400); Red Blood Count 4.58 X10*6/uL (4.20-5.50); White Blood Count 3.8 X10*3/uL (4.8-10.8)
[2025-11-13 14:51] LABS: Alanine Aminotransferase 18 U/L (0-31); Albumin Level 4.8 g/dL (3.5-5.0); Alkaline Phosphatase 75 U/L (39-117); Anion Gap 13 (12-20); Aspartate Amino Transferase 21 U/L (5-31); Blood Urea Nitrogen 7 mg/dL (9-16); Calcium 9.8 mg/dL (8.4-10.2); Carbon Dioxide 28 mmol/L (22-29); Chloride 102 mmol/L (96-108); Estimated Glomerular Filt Rate > 60; Potassium 4.9 mmol/L (3.3-5.1); Sodium 138 mmol/L (135-145); Total Protein 7.3 g/dL (6.5-8.0)
[2025-11-13 14:59] LABS: Vitamin B12 298 pg/mL (200-900)
[2025-11-17 15:44] LABS: Vitamin D 25-OH, D2 <4 ng/mL; Vitamin D 25-OH, D3 21 ng/mL; Vitamin D 25-OH, Total 21 ng/mL (30-100)
== END 2025-11-13 10:07 | disposition home or self-care (01) ==
LOC: HO.HMGCLDS 10:06
PROVIDERS: PCP Internal Medicine; Visit Provider Internal Medicine
DX: Z00.01 Encounter for general adult medical examination with abnormal findings (principal); F20.81 Schizophreniform disorder; E03.9 Hypothyroidism, unspecified; E78.5 Hyperlipidemia, unspecified; E13.9 Other specified diabetes mellitus without complications; J43.1 Panlobular emphysema; E78.9 Disorder of lipoprotein metabolism, unspecified; E03.8 Other specified hypothyroidism; E53.8 Deficiency of other specified B group vitamins; E66.01 Morbid (severe) obesity due to excess calories; F17.210 Nicotine dependence, cigarettes, uncomplicated; J44.1 Chronic obstructive pulmonary disease with (acute) exacerbation; Z68.38 Body mass index [BMI] 38.0-38.9, adult
CPT/HCPCS: 36415; 80053; 82306; 82607; 83721; 84443; 85025; 99212; 99397